=== PATIENT | female | born 1970 | race Caucasian/White ===

== ENCOUNTER → 2016-07-16 | Outpatient (CLI) | payer OTHER ==
[2016-07-16 11:21] LABS: CHLORIDE,CL 104 mmol/L (98-110); SODIUM,NA 141 mmol/L (136-146)
== END ==
LOC: MW.CHIM 10:39
PROVIDERS: ATTEND Internal Medicine
DX: I10 Essential (primary) hypertension (principal); E87.5 Hyperkalemia
CPT/HCPCS: 36415; 80048

== ENCOUNTER 2017-08-21 14:52 | Emergency (ER) | payer BC ==
[2017-08-21] MEDS ORDERED: Sodium Chloride 0.9% 1,000 ML IV SCH (15:30)
--- NOTE | 2017-08-21 15:47 | EDM.PDOC ---
ED HPI GENERAL MEDICAL PROBLEM - General Chief Complaint: Headache Stated Complaint: HEADACHES Time Seen by Provider: 08/21/17 14:57 - History of Present Illness INITIAL COMMENTS - FREE TEXT/NARRATIVE: HISTORY AND PHYSICAL: History of present illness: Patient is a 46-year-old female with a history of brain cancer with subsequent tumor resection and radiation who is been followed by Dr. Donnelly in presents with headache 2 weeks she's had no new neurological signs or symptoms she states she has had some nausea she is in the process of coordinating follow-up through [facility] with Dr. Donnelly facilitating her original tumor surgery and care for this problem was in [place]. She did have an MRI in June that showed slightly increased enhancement in the region of the resection this was discussed with her oncologist and neurologist or the process of coordinating care through [facility]. Review of systems: As per history of present illness and below otherwise all systems reviewed and negative. Past medical history: As per history of present illness and as reviewed below otherwise noncontributory. Surgical history: As per history of present illness and as reviewed below otherwise noncontributory. Social history: No reported history of drug or alcohol abuse. Family history: As per history of present illness and as reviewed below otherwise noncontributory. Physical exam: HEENT: Atraumatic, normocephalic, pupils reactive, negative for conjunctival pallor or scleral icterus, mucous membranes moist, throat clear, neck supple, nontender, trachea midline. Lungs: Clear to auscultation, breath sounds equal bilaterally, chest nontender. Heart: S1S2, regular, negative for clicks, rubs, or JVD. Abdomen: Soft, nondistended, nontender. Negative for masses or hepatosplenomegaly. Negative for costovertebral tenderness. Pelvis: Stable nontender. Genitourinary: Deferred. Rectal: Deferred. Extremities: Atraumatic, negative for cords or calf pain. Neurovascular unremarkable. Neuro: Awake, alert, oriented. Cranial nerves II through XII unremarkable. Cerebellum unremarkable. Motor and sensory unremarkable throughout. Exam nonfocal. Diagnostics: CBC CMP CT brain Therapeutics: Saline at 125 mL an hour Impression: #1 history of intracranial neoplasm with resection #2 cephalgia Definitive disposition and diagnosis as appropriate pending reevaluation and review of above. frontal Pain Score (Numeric/FACES): 8 - Related Data Allergies Allergy/AdvReac Type Severity Reaction Status Date / Time No Known Allergies Allergy Verified 08/21/17 14:59 Home Meds: Home Meds Levothyroxine 125 mcg PO DAILY 11/09/13 [History] amLODIPine [Norvasc] 5 mg PO DAILY 11/09/13 [History] Omeprazole Magnesium [Prilosec Otc] 20 mg PO DAILY 02/14/16 [History] Potassium Chloride 20 meq PO DAILY 02/14/16 [History] oxyCODONE HCl/Acetaminophen [Percocet 7.5-325 mg Tablet] 1 each PO Q4H PRN #30 tablet 02/17/16 [Rx] Past Medical History HEENT History: Reports: None Cardiovascular History: Reports: Arrhythmia, High Cholesterol, Hypertension Respiratory History: Reports: None Gastrointestinal History: Reports: GERD, Irritable Bowel Syndrome Genitourinary History: Reports: Other (See Below) Other Genitourinary History: has three funcitoning kidneys [employer] History: Reports: Fibroids, Other OB/BYN History: Musculoskeletal History: Reports: None Neurological History: Reports: Migraines Other Neuro History: Brain tumor with removal and [id number] finished chronic steroids. Psychiatric History: Reports: None Endocrine/Metabolic History: Reports: Hypothyroidism, Obesity/BMI 30+ Hematologic History: Reports: None Immunologic History: Reports: None Oncologic (Cancer) History: Reports: Brain Dermatologic History: Reports: None - Infectious Disease History Infectious Disease History: Reports: Chicken Pox - Past Surgical History Head Surgeries/Procedures: Reports: Other (See Below) HEENT Surgical History: Reports: Oral Surgery, Tonsillectomy Cardiovascular Surgical History: Reports: None Respiratory Surgical History: Reports: None GI Surgical History: Reports: None Female Surgical History: Reports: Section, Cervical Conization, Hysterectomy Endocrine Surgical History: Reports: None Neurological Surgical History: Reports: None Musculoskeletal Surgical History: Reports: None Oncologic Surgical History: Reports: None - History Comment History Comment: etoh "weekly" Social & Family History - Family History Family Medical History: Noncontributory - Tobacco Use Smoking Status *Q: Never Smoker Years of Tobacco use: 25 Used Tobacco, but Quit: Yes Month/Year Tobacco Last Used: january Second Hand Smoke Exposure: No - Caffeine Use Caffeine Use: Reports: Coffee Caffeine Use Comment: two coffees daily - Alcohol Use Days Per Week of Alcohol Use: 5 Number of Drinks Per Day: 2 Total Drinks Per Week: 10 - Recreational Drug Use Recreational Drug Use: Yes Drug Use in Last 12 Months: No Recreational Drug Type: Reports: Marijuana/Hashish Recreational Drug Use Frequency: Daily ED ROS GENERAL - Review of Systems Review Of Systems: ROS reveals no pertinent complaints other than HPI. ED EXAM, GENERAL - Physical Exam Exam: See Below (See dictation) Course - Vital Signs Last Recorded V/S: Last Vital Signs Temp 35.6 C 08/21/17 15:00 Pulse 113 H 08/21/17 15:00 Resp 18 08/21/17 15:00 BP 149/87 H 08/21/17 15:00 Pulse Ox 98 08/21/17 15:00 - Orders/Labs/Meds Orders: Active Orders 24 hr Category Date Time Status DRUG SCREEN, URINE [URCHEM] Stat Lab 08/21/17 16:16 Ordered UA W/MICROSCOPIC [URIN] Stat Lab 08/21/17 16:16 Ordered Sodium Chloride 0.9% [Normal Saline] 1,000 ml Med 08/21/17 15:30 Active IV STAT Medication Orders Sodium Chloride (Normal Saline) 1,000 mls @ 125 mls/hr IV STAT BARBARA Last Admin: 08/21/17 15:45 Dose: 125 mls/hr Labs: Laboratory Tests 08/21/17 08/21/17 Range/Units 15:28 15:28 WBC 8.95 (4.0-11.0) K/uL RBC 4.79 (4.30-5.90) M/uL Hgb 14.3 (12.0-16.0) g/dL Hct 43.4 (36.0-46.0) % MCV 90.6 (80.0-98.0) fL MCH 29.9 (27.0-32.0) pg MCHC 32.9 (31.0-37.0) g/dL RDW Std Deviation 44.1 (28.0-62.0) fl RDW Coeff of Amanda 13 (11.0-15.0) % Plt Count 470 H (150-400) K/uL MPV 9.40 (7.40-12.00) fL Neut % (Auto) 87.4 H (48.0-80.0) % Lymph % (Auto) 9.8 L (16.0-40.0) % [place] % (Auto) 2.8 (0.0-15.0) % Eos % (Auto) 0.0 (0.0-7.0) % Baso % (Auto) 0.0 (0.0-1.5) % Neut # (Auto) 7.8 H (1.4-5.7) K/uL Lymph # (Auto) 0.9 (0.6-2.4) K/uL [place] # (Auto) 0.3 (0.0-0.8) K/uL Eos # (Auto) 0.0 (0.0-0.7) K/uL Baso # (Auto) 0.0 (0.0-0.1) K/uL Nucleated RBC % 0.0 /100WBC Nucleated RBCs # 0 K/uL Sodium 141 (136-145) mmol/L Potassium 4.3 (3.5-5.1) mmol/L Chloride 103 (98-107) mmol/L Carbon Dioxide 28.0 (21.0-32.0) mmol/L BUN 11 (7.0-18.0) mg/dL Creatinine 0.8 (0.6-1.0) mg/dL Est Cr Clr Drug Dosing 113.33 mL/min Estimated GFR (MDRD) > 60.0 ml/min Glucose 130 H (74-106) mg/dL Calcium 9.3 (8.5-10.1) mg/dL Total Bilirubin 0.4 (0.2-1.0) mg/dL AST 16 (15-37) IU/L ALT 28 (14-63) IU/L Alkaline Phosphatase 75 (46-116) U/L Total Protein 8.0 (6.4-8.2) g/dL Albumin 3.9 (3.4-5.0) g/dL Globulin 4.1 H (2.0-3.5) g/dL Albumin/Globulin Ratio 1.0 L (1.3-2.8) Meds: Medications Generic Name Dose Route Start Last Admin Trade Name Freq PRN Reason Stop Dose Admin Sodium Chloride 1,000 mls @ 125 mls/hr 08/21/17 15:30 08/21/17 15:45 Normal Saline IV 125 mls/hr STAT BARBARA Administration Discontinued Medications Generic Name Dose Route Start Last Admin Trade Name Freq PRN Reason Stop Dose Admin Dexamethasone 10 mg 08/21/17 16:43 Dexamethasone IVPUSH 08/21/17 16:44 ONETIME ONE Departure - Departure Time of Disposition: 16:52 Disposition: DC/Tfer to Acute Hospital 02 Condition: Good Clinical Impression: Cephalgia, Intracranial space-occupying lesion - Discharge Information Referrals: Richie Cuba MD [Primary Care Provider] - Forms: ED Department Discharge - My Orders Last 24 Hours: My Active Orders 08/21/17 15:30 Sodium Chloride 0.9% [Normal Saline] 1,000 ml IV STAT 08/21/17 16:16 DRUG SCREEN, URINE [URCHEM] Stat UA W/MICROSCOPIC [URIN] Stat - Assessment/Plan Last 24 Hours: My Active Orders 08/21/17 15:30 Sodium Chloride 0.9% [Normal Saline] 1,000 ml IV STAT 08/21/17 16:16 DRUG SCREEN, URINE [URCHEM] Stat UA W/MICROSCOPIC [URIN] Stat
[2017-08-21 16:06] LABS: CHLORIDE,CL 103 mmol/L (98-107); SODIUM,NA 141 mmol/L (136-145)
--- NOTE | 2017-08-21 16:18 | CT ---
EXAMINATION: Non contrast CT head. Coronal and sagittal reformats. HISTORY: Pain FINDINGS: There is a 3.4 cm cystic space in the region of the right frontal lobe anteriorly. This has increased in size relative to the previous examination dated 07/01/2017. No definite solid component identified on the noncontrast examination. Moderate adjacent white matter hypodensities noted consistent with g liosis. There is mild left to right midline shift noted on the previous examination. No evidence of h emorrhagic conversion. No hypoattenuation changes in the major vascular territories to suggest acute infarct. No abnormal i ntracranial calcifications are detected. No evidence of substantial vascular calcifications. Small a mount of fluid within the left maxillary sinus. Opacification of mastoid air cells bilaterally. Pituitary fossa appears unremarkable. Calvarium is intact. No evidence of skull fracture. IMPRESSION: 1. Increasing cystic space within the region of previous surgery in the right frontal lobe. This is r esulting in mild to moderate right to left midline shift anteriorly. 2. Moderate adjacent gliosis. 3. No evidence of hemorrhagic conversion. 4. Moderate opacification of ethmoid air cells bilaterally. Likely an effusion.
[2017-08-21] MEDS ORDERED: Dexamethasone 10 MG/ML SDV IVPUSH ONE (16:43)
[2017-08-21] MEDS ORDERED: Ondansetron 4 MG/2 ML SDV IVPUSH ONE (16:56)
[2017-08-21] MEDS ORDERED: Ondansetron 4 MG/2 ML SDV ONE (16:57)
[2017-08-21] MEDS ORDERED: Mannitol 12.5 GM/50 ML SDV IV ONE (17:04)
[2017-08-21 17:41] VITALS: BP 163/88
== END 2017-08-21 18:36 ==
LOC: MW.ED 14:52
DX: R90.0 Intracranial space-occupying lesion found on diagnostic imaging of central nervous system (principal); M54.2 Cervicalgia; E78.00 Pure hypercholesterolemia, unspecified; I10 Essential (primary) hypertension; K21.9 Gastro-esophageal reflux disease without esophagitis; E03.9 Hypothyroidism, unspecified; E66.9 Obesity, unspecified; Z79.899 Other long term (current) drug therapy; Z87.891 Personal history of nicotine dependence
CPT/HCPCS: 36415; 70450; 80053; 80305; 81001; 85025; 96361; 96374; 96375; 99285; J1100; J2150; J2405; J7040; 99284

== ENCOUNTER 2018-12-18 17:08 | Inpatient (IN) | payer BC ==
[2018-12-18] MEDS ORDERED: Sodium Chloride 0.9% 1,000 ML IV ONE (17:41)
[2018-12-18] MEDS ORDERED: Albuterol/Ipratropium 3.0-0.5 MG/3 ML Neb Soln NEB ONE (17:42)
[2018-12-18 18:28] LABS: CHLORIDE,CL 103 mmol/L (98-107); SODIUM,NA 141 mmol/L (136-145)
--- NOTE | 2018-12-18 18:28 | EDM.PDOC ---
ED HPI GENERAL MEDICAL PROBLEM - General Chief Complaint: Respiratory Problem Stated Complaint: SOB Time Seen by Provider: 12/18/18 17:18 Source of Information: Reports: Patient History Limitations: Reports: No Limitations - History of Present Illness INITIAL COMMENTS - FREE TEXT/NARRATIVE: HISTORY AND PHYSICAL: History of present illness: Patient is a 48-year-old female who presents to the ED today with concern of worsening shortness of breath over the past 5 days. Patient currently has brain cancer in which she is receiving chemotherapy every 6 weeks and has just finished radiation therapy at [facility]. Patient states she is to go to [place] again next week. Patient states in the meantime she's began feeling short of breath and went to the oncology center today to receive some x-ray imaging. At that time, they told her her oxygen was too low center to the ED. Patient states she does not currently smoke but was once a heavy smoker; smoking about a pack a day for 20 years. Patient denies fever, chills, chest pain. Denies headache, neck stiff ness, change in vision, syncope, or near syncope. Denies nausea, vomiting, abdominal pain, diarrhea, constipation, or dysuria. Has not noted any blood in urine or stool. Patient has been eating and drinking appropriately. Review of systems: As per history of present illness and below otherwise all systems reviewed and negative. Past medical history: As per history of present illness and as reviewed below otherwise noncontributory. Surgical history: As per history of present illness and as reviewed below otherwise noncontributory. Social history: See social history for further information Family history: As per history of present illness and as reviewed below otherwise noncontributory. Physical exam: General: Patient is alert, oriented, and in no acute distress. Patient sitting comfortably on exam table. HEENT: Atraumatic, scarring consistent with surgical history, pupils equal and reactive bilaterally, negative for conjunctival pallor or scleral icterus, mucous membranes dry, TMs normal bilaterally, throat clear, neck supple, nontender, trachea midline. No drooling or trismus noted. No meningeal signs. No hot potato voice noted. Lungs: Exam limited due to dry cough. Otherwise, Clear to auscultation, breath sounds equal bilaterally, chest nontender. Heart: S1S2, regular rate and rhythm without overt murmur Abdomen: Obese, Soft, nondistended, nontender. Negative for masses or hepatosplenomegaly. Negative for costovertebral tenderness. Pelvis: Stable nontender. Genitourinary: Deferred. Rectal: Deferred. Skin: Intact, warm, dry. No lesions or rashes noted. Extremities: Atraumatic, negative for cords or calf pain. Neurovascular unremarkable. Neuro: Awake, alert, oriented. Cranial nerves II through XII unremarkable. Cerebellum unremarkable. Motor and sensory unremarkable throughout. Exam nonfocal. Notes: Patient 88% on RA. 95% on 3L NC. Dr. Wiggins consulted on patient and will admit to observation. Voices understanding and is agreeable to plan of care. Denies any further questions or concerns at this time. Diagnostics: CBC, CMP, UA, EKG, troponin, Ang CT, Blood cultures x 2, lactate Therapeutics: Duoneb, Saline, Meropenem Impression: Multifocal pneumonia Hypoxia Immunosuppression Plan: 1. Admit to observation to Dr. Wiggins. Definitive disposition and diagnosis as appropriate pending reevaluation and review of above. Chest Pain Score (Numeric/FACES): 2 - Related Data Allergies Allergy/AdvReac Type Severity Reaction Status Date / Time No Known Allergies Allergy Verified 12/18/18 17:22 Home Meds: Home Meds Levothyroxine 125 mcg PO DAILY 11/09/13 [History] amLODIPine [Norvasc] 5 mg PO DAILY 11/09/13 [History] Omeprazole Magnesium [Prilosec Otc] 20 mg PO DAILY 02/14/16 [History] Nortriptyline 20 mg PO BEDTIME 08/21/17 [History] LORazepam 0.5 mg PO BID 12/18/18 [History] dexAMETHasone [Dexamethasone] 2 mg PO Q12H 12/18/18 [History] oxyCODONE 5 mg PO ASDIRECTED 12/18/18 [History] Past Medical History HEENT History: Reports: None Cardiovascular History: Reports: Arrhythmia, High Cholesterol, Hypertension Respiratory History: Reports: None Gastrointestinal History: Reports: GERD, Irritable Bowel Syndrome Genitourinary History: Reports: Other (See Below) Other Genitourinary History: has three funcitoning kidneys [employer] History: Reports: Fibroids, Other [employer] History: Musculoskeletal History: Reports: None Neurological History: Reports: Migraines Other Neuro History: Brain tumor with removal and [id number] finished chronic steroids. Psychiatric History: Reports: None Endocrine/Metabolic History: Reports: Hypothyroidism, Obesity/BMI 30+ Hematologic History: Reports: None Immunologic History: Reports: None Oncologic (Cancer) History: Reports: Brain Dermatologic History: Reports: None - Infectious Disease History Infectious Disease History: Reports: Chicken Pox - Past Surgical History Head Surgeries/Procedures: Reports: Other (See Below) HEENT Surgical History: Reports: Oral Surgery, Tonsillectomy Cardiovascular Surgical History: Reports: None Respiratory Surgical History: Reports: None GI Surgical History: Reports: None Female Surgical History: Reports: Section, Cervical Conization, Hysterectomy Endocrine Surgical History: Reports: None Neurological Surgical History: Reports: None Musculoskeletal Surgical History: Reports: None Oncologic Surgical History: Reports: None - History Comment History Comment: etoh "weekly" Social & Family History - Family History Family Medical History: Noncontributory - Tobacco Use Smoking Status *Q: Former Smoker Years of Tobacco use: 25 Used Tobacco, but Quit: Yes Month/Year Tobacco Last Used: 13year - Caffeine Use Caffeine Use: Reports: None Caffeine Use Comment: two coffees daily - Recreational Drug Use Recreational Drug Use: No ED ROS GENERAL - Review of Systems Review Of Systems: ROS reveals no pertinent complaints other than HPI. ED EXAM, GENERAL - Physical Exam Exam: See Below (see dictation) Course - Vital Signs Last Recorded V/S: Last Vital Signs Temp 35.9 C 12/18/18 17:27 Pulse 108 H 12/18/18 18:00 Resp 18 12/18/18 18:00 BP 115/90 12/18/18 18:00 Pulse Ox 96 12/18/18 18:00 - Orders/Labs/Meds Orders: Active Orders 24 hr Category Date Time Status Admission Status [Patient Status] [ADT] Stat ADT 12/18/18 19:38 Ordered EKG Documentation Completion [RC] STAT Care 12/18/18 17:41 Active RT Aerosol Therapy [RC] ASDIRECTED Care 12/18/18 17:42 Active CULTURE BLOOD [BC] Stat Lab 12/18/18 17:57 Received CULTURE BLOOD [BC] Stat Lab 12/18/18 18:05 Received Meropenem [Merrem] 1 gm Med 12/18/18 19:37 Ordered Sodium Chloride 0.9% [Normal Saline] 100 ml IV ONETIME Blood Culture x2 Reflex Set [OM.PC] Stat Oth 12/18/18 17:42 Ordered Medication Orders Meropenem 1 gm/ Sodium (Chloride) 100 mls @ 200 mls/hr IV ONETIME ONE Stop: 12/18/18 20:06 Labs: Laboratory Tests 12/18/18 12/18/18 12/18/18 Range/Units 17:57 17:57 17:57 WBC 11.38 H (4.0-11.0) K/uL RBC 4.83 (4.30-5.90) M/uL Hgb 14.5 (12.0-16.0) g/dL Hct 46.0 (36.0-46.0) % MCV 95.2 (80.0-98.0) fL MCH 30.0 (27.0-32.0) pg MCHC 31.5 (31.0-37.0) g/dL RDW Std Deviation 47.7 (28.0-62.0) fl RDW Coeff of Amanda 14 (11.0-15.0) % Plt Count 324 (150-400) K/uL MPV 9.50 (7.40-12.00) fL Neut % (Auto) 89.8 H (48.0-80.0) % Lymph % (Auto) 5.6 L (16.0-40.0) % [place] % (Auto) 4.2 (0.0-15.0) % Eos % (Auto) 0.2 (0.0-7.0) % Baso % (Auto) 0.2 (0.0-1.5) % Neut # (Auto) 10.2 H (1.4-5.7) K/uL Lymph # (Auto) 0.6 (0.6-2.4) K/uL [place] # (Auto) 0.5 (0.0-0.8) K/uL Eos # (Auto) 0.0 (0.0-0.7) K/uL Baso # (Auto) 0.0 (0.0-0.1) K/uL Nucleated RBC % 0.0 /100WBC Nucleated RBCs # 0 K/uL Lactate 1.6 (0.20-2.00) mmol/L Sodium 141 (136-145) mmol/L Potassium 4.6 (3.5-5.1) mmol/L Chloride 103 (98-107) mmol/L Carbon Dioxide 29.1 (21.0-32.0) mmol/L BUN 14 (7.0-18.0) mg/dL Creatinine 0.8 (0.6-1.0) mg/dL Est Cr Clr Drug Dosing 98.21 mL/min Estimated GFR (MDRD) > 60.0 ml/min Glucose 128 H (74-106) mg/dL Calcium 9.4 (8.5-10.1) mg/dL Total Bilirubin 0.3 (0.2-1.0) mg/dL AST 23 (15-37) IU/L ALT 40 (14-63) IU/L Alkaline Phosphatase 86 (46-116) U/L Troponin I < 0.050 (0.000-0.056) ng/mL Total Protein 6.9 (6.4-8.2) g/dL Albumin 3.4 (3.4-5.0) g/dL Globulin 3.5 (2.6-4.0) g/dL Albumin/Globulin Ratio 1.0 (0.9-1.6) Urine Color Urine Appearance Urine pH (5.0-8.0) Ur Specific [place] (1.001-1.035) Urine Protein (NEGATIVE) mg/dL Urine Glucose (UA) (NEGATIVE) mg/dL Urine Ketones (NEGATIVE) mg/dL Urine Occult Blood (NEGATIVE) Urine Nitrite (NEGATIVE) Urine Bilirubin (NEGATIVE) Urine Urobilinogen (<2.0) EU/dL Ur Leukocyte Esterase (NEGATIVE) 12/18/18 Range/Units 19:25 WBC (4.0-11.0) K/uL RBC (4.30-5.90) M/uL Hgb (12.0-16.0) g/dL Hct (36.0-46.0) % MCV (80.0-98.0) fL MCH (27.0-32.0) pg MCHC (31.0-37.0) g/dL RDW Std Deviation (28.0-62.0) fl RDW Coeff of Amanda (11.0-15.0) % Plt Count (150-400) K/uL MPV (7.40-12.00) fL Neut % (Auto) (48.0-80.0) % Lymph % (Auto) (16.0-40.0) % [place] % (Auto) (0.0-15.0) % Eos % (Auto) (0.0-7.0) % Baso % (Auto) (0.0-1.5) % Neut # (Auto) (1.4-5.7) K/uL Lymph # (Auto) (0.6-2.4) K/uL [place] # (Auto) (0.0-0.8) K/uL Eos # (Auto) (0.0-0.7) K/uL Baso # (Auto) (0.0-0.1) K/uL Nucleated RBC % /100WBC Nucleated RBCs # K/uL Lactate (0.20-2.00) mmol/L Sodium (136-145) mmol/L Potassium (3.5-5.1) mmol/L Chloride (98-107) mmol/L Carbon Dioxide (21.0-32.0) mmol/L BUN (7.0-18.0) mg/dL Creatinine (0.6-1.0) mg/dL Est Cr Clr Drug Dosing mL/min Estimated GFR (MDRD) ml/min Glucose (74-106) mg/dL Calcium (8.5-10.1) mg/dL Total Bilirubin (0.2-1.0) mg/dL AST (15-37) IU/L ALT (14-63) IU/L Alkaline Phosphatase (46-116) U/L Troponin I (0.000-0.056) ng/mL Total Protein (6.4-8.2) g/dL Albumin (3.4-5.0) g/dL Globulin (2.6-4.0) g/dL Albumin/Globulin Ratio (0.9-1.6) Urine Color YELLOW Urine Appearance CLEAR Urine pH 6.0 (5.0-8.0) Ur Specific [place] <= 1.005 (1.001-1.035) Urine Protein NEGATIVE (NEGATIVE) mg/dL Urine Glucose (UA) NEGATIVE (NEGATIVE) mg/dL Urine Ketones NEGATIVE (NEGATIVE) mg/dL Urine Occult Blood NEGATIVE (NEGATIVE) Urine Nitrite NEGATIVE (NEGATIVE) Urine Bilirubin NEGATIVE (NEGATIVE) Urine Urobilinogen 0.2 (<2.0) EU/dL Ur Leukocyte Esterase NEGATIVE (NEGATIVE) Meds: Medications Generic Name Dose Route Start Last Admin Trade Name Sandra PRN Reason Stop Dose Admin Meropenem 1 gm/ Sodium 100 mls @ 200 mls/hr 12/18/18 19:37 Chloride IV 12/18/18 20:06 ONETIME ONE Discontinued Medications Generic Name Dose Route Start Last Admin Trade Name Sandra PRN Reason Stop Dose Admin Albuterol/Ipratropium 3 ml 12/18/18 17:42 12/18/18 18:03 Duoneb 3.0-0.5 Mg/3 Ml NEB 12/18/18 17:43 3 ml ONETIME ONE Administration Sodium Chloride 1,000 mls @ 999 mls/hr 12/18/18 17:41 12/18/18 18:14 Normal Saline IV 12/18/18 18:41 999 mls/hr BOLUS ONE Administration Iopamidol 50 ml 12/18/18 18:35 12/18/18 18:35 Isovue Multipack-370 (76%) IVPUSH 12/18/18 18:36 50 ml ONETIME STA Administration Departure - Departure Time of Disposition: 19:43 Disposition: Refer to Observation Clinical Impression: Multifocal pneumonia, Immunosuppression, Hypoxia - Discharge Information - My Orders Last 24 Hours: My Active Orders 12/18/18 17:41 EKG Documentation Completion [RC] STAT 12/18/18 17:42 RT Aerosol Therapy [RC] ASDIRECTED Blood Culture x2 Reflex Set [OM.PC] Stat 12/18/18 17:57 CULTURE BLOOD [BC] Stat 12/18/18 18:05 CULTURE BLOOD [BC] Stat 12/18/18 19:37 Meropenem [Merrem] 1 gm Sodium Chloride 0.9% [Normal Saline] 100 ml IV ONETIME 12/18/18 19:38 Admission Status [Patient Status] [ADT] Stat - Assessment/Plan Last 24 Hours: My Active Orders 12/18/18 17:41 EKG Documentation Completion [RC] STAT 12/18/18 17:42 RT Aerosol Therapy [RC] ASDIRECTED Blood Culture x2 Reflex Set [OM.PC] Stat 12/18/18 17:57 CULTURE BLOOD [BC] Stat 12/18/18 18:05 CULTURE BLOOD [BC] Stat 12/18/18 19:37 Meropenem [Merrem] 1 gm Sodium Chloride 0.9% [Normal Saline] 100 ml IV ONETIME 12/18/18 19:38 Admission Status [Patient Status] [ADT] Stat
[2018-12-18] MEDS ORDERED: Iopamidol 755 MG/ML 500 ML Multipack Bottle IVPUSH STA (18:35)
--- NOTE | 2018-12-18 19:31 | CT ---
INDICATION: Shortness of breath. COMPARISON: None available TECHNIQUE: CT examination of the chest was performed with the uneventful intravenous administration of 50 cc of Isovue 370 while 1 mm thick axial sections were obtained through the pulmonary arteries. Please note that all CT scans at this facility use dose modulation, iterative reconstruction, and/or weight-based dosing when appropriate to reduce radiation dose to as low as reasonably achievable. FINDINGS: : There is no sign of pulmonary embolism, with normal enhancement and branching of the pulmonary arteries. There is moderate patchy alveolar infiltrate throughout the right lung, involving both the right upper and lower lobes, consistent with multifocal pneumonia. There is mild patchy alveolar infiltrate scattered throughout the entire left lung, suggesting early left lung pneumonia. There is no sign of any pleural effusion. There is no sign of mediastinal or hilar mass or adenopathy. The heart and great vessels are normal in appearance. There is no sign of supraclavicular or axillary mass or adenopathy. The visualized superior liver, spleen, pancreas, kidneys, and adrenals are normal in appearance. The osseous structures are normal in appearance for the patient`s age. IMPRESSION: No sign of pulmonary embolism. Moderate patchy infiltrate and scattered throughout the right lung consistent with multifocal pneumonia. Mild patchy infiltrates scattered throughout the left lung, consistent with additional pneumonia. Please note that all CT scans at this facility use dose modulation, iterative reconstruction, and/or weight-based dosing when appropriate to reduce radiation dose to as low as reasonably achievable. Dictated by Victorino Saenz MD @ Dec 18 2018 7:21PM Signed by Dr. Victorino Saenz @ Dec 18 2018 7:29PM
[2018-12-18] MEDS ORDERED: MEROPENEM IV ONE (20:00)
[2018-12-18] MEDS ORDERED: SODIUM CHLORIDE IV ONE (20:00)
[2018-12-18] MEDS: Meropenem 1 GM in Sodium Chloride 0.9% 100 ML IV ONE ×2 (20:19→20:20)
[2018-12-18] MEDS ORDERED: Acetaminophen 325 MG Tab PO PRN (21:02)
[2018-12-18] MEDS ORDERED: Temazepam 15 MG Cap PO PRN (21:03)
[2018-12-18] MEDS: Sodium Chloride 0.9% 1,000 ML IV SCH (21:18)
[2018-12-18] MEDS ORDERED: Meropenem 1 GM in Sodium Chloride 0.9% 100 ML IV SCH (22:15)
[2018-12-19] MEDS ORDERED: Meropenem 1 GM in Sodium Chloride 0.9% 100 ML IV SCH ×2 (04:00→12:00)
[2018-12-19] MEDS ORDERED: Meropenem 1 GM SDV ONE (05:23)
[2018-12-19] MEDS ORDERED: Sodium Chloride 0.9% 50 ML ONE (05:25)
[2018-12-19] MEDS: oxyCODONE 5 MG Tab PO PRN ×3 (05:30→21:42)
[2018-12-19] MEDS: Albuterol/Ipratropium 3.0-0.5 MG/3 ML Neb Soln NEB PRN ×2 (06:07→14:31)
[2018-12-19 06:47] LABS: CHLORIDE,CL 108 mmol/L (98-107); SODIUM,NA 144 mmol/L (136-145)
[2018-12-19] MEDS ORDERED: Docusate Sodium 100 MG Cap PO PRN (06:51)
--- NOTE | 2018-12-19 06:54 | PCM.HP.2 ---
H&P History of Present Illness - General Date of Service: 12/19/18 Admit Problem/Dx: Admission Diagnosis/Problem Admission Diagnosis/Problem Pneumonia, multifocal. Currently under chemotherapy and radiation for glioblastoma multiform Source of Information: Patient History Limitations: Reports: No Limitations - History of Present Illness Initial Comments - Free Text/Narative: The patient is a 48-year-old lady who had presented to the emergency department complaining predominantly of worsening shortness of breath. Patient has described symptoms is been unable to take a deep breath and to fully inhale. The patient has a history of prior astrocytoma of the brain with surgery and now glioblastoma also currently post surgical and has undergone radiation therapy is scheduled to undergo chemotherapy. The patient has denied any fever or chills. She's had no nausea or vomiting. The patient has denied any cough with sputum production or hemoptysis. In the emergency department a CT angiogram was obtained to rule out pulmonary emboli as she was noted to have moderate patchy alveolar infiltrates throughout the right lung involving the right upper and lower lobes consistent with multifocal pneumonia. Onset of Symptoms: Reports: Gradual Duration of Symptoms: Reports: Day(s): Location: Reports: Chest Quality: Reports: Other (Pressure) Severity: Moderate Improves with: Reports: Rest Worsens with: Reports: Movement Context: Reports: Other (Chemotherapy, radiation) Associated Symptoms: Reports: No Other Symptoms Chest Pain Score (Numeric/FACES): 2 - Related Data Allergies/Adverse Reactions: Allergies Allergy/AdvReac Type Severity Reaction Status Date / Time No Known Allergies Allergy Verified 12/18/18 21:58 Home Medications: Home Meds Levothyroxine 125 mcg PO DAILY 11/09/13 [History] amLODIPine [Norvasc] 5 mg PO DAILY 11/09/13 [History] Omeprazole Magnesium [Prilosec Otc] 20 mg PO DAILY 02/14/16 [History] Nortriptyline 20 mg PO BEDTIME 08/21/17 [History] LORazepam 0.5 mg PO Q8H PRN 12/18/18 [History] dexAMETHasone [Dexamethasone] 2 mg PO Q24H 12/18/18 [History] oxyCODONE 5 mg PO ASDIRECTED 12/18/18 [History] Past Medical History HEENT History: Reports: None Cardiovascular History: Reports: Arrhythmia, High Cholesterol, Hypertension Respiratory History: Reports: None Gastrointestinal History: Reports: GERD, Irritable Bowel Syndrome Genitourinary History: Reports: Other (See Below) Other Genitourinary History: has three funcitoning kidneys [employer]MING [employer] History: Reports: Fibroids, Other OB/BYN History: Musculoskeletal History: Reports: None Neurological History: Reports: Migraines Other Neuro History: Brain tumor with removal and [id number] finished chronic steroids. Psychiatric History: Reports: None Endocrine/Metabolic History: Reports: Hypothyroidism, Obesity/BMI 30+ Hematologic History: Reports: Anesthesia Reaction Immunologic History: Reports: None Oncologic (Cancer) History: Reports: Brain Dermatologic History: Reports: None - Infectious Disease History Infectious Disease History: Reports: Chicken Pox - Past Surgical History Head Surgeries/Procedures: Reports: Other (See Below) HEENT Surgical History: Reports: Oral Surgery, Tonsillectomy Cardiovascular Surgical History: Reports: None Respiratory Surgical History: Reports: None GI Surgical History: Reports: None Female Surgical History: Reports: Section, Cervical Conization, Hysterectomy Endocrine Surgical History: Reports: None Neurological Surgical History: Reports: None Musculoskeletal Surgical History: Reports: None Oncologic Surgical History: Reports: None - History Comment History Comment: etoh "weekly" Social & Family History - Family History Family Medical History: Noncontributory - Tobacco Use Smoking Status *Q: Former Smoker Years of Tobacco use: 20 Used Tobacco, but Quit: Yes Month/Year Tobacco Last Used: 2005 Second Hand Smoke Exposure: No - Caffeine Use Caffeine Use: Reports: Coffee Other Caffeine Use: 2 cups daily Caffeine Use Comment: two coffees daily - Alcohol Use Days Per Week of Alcohol Use: 7 Number of Drinks Per Day: 1 Total Drinks Per Week: 7 Date of Last Drink: 12/17/18 - Recreational Drug Use Recreational Drug Use: Yes Drug Use in Last 12 Months: Yes Other Recreational Drug Type: uses CBD gummies occasionally for headaches - Living Situation & Occupation Living situation: Reports: , with Family Occupation: Unemployed H&P Review of Systems - Review of Systems: Review Of Systems: See Below General: Reports: No Symptoms HEENT: Reports: No Symptoms Pulmonary: Reports: Shortness of Breath. Denies: Cough, Sputum, Hemoptysis Cardiovascular: Reports: No Symptoms Gastrointestinal: Reports: No Symptoms Genitourinary: Reports: No Symptoms Musculoskeletal: Reports: No Symptoms Skin: Reports: No Symptoms Psychiatric: Reports: No Symptoms Neurological: Reports: No Symptoms Hematologic/Lymphatic: Reports: No Symptoms Immunologic: Reports: No Symptoms Exam - Exam Exam: See Below - Vital Signs Vital Signs: Last Vital Signs Temp 36.4 C 12/19/18 04:00 Pulse 105 H 12/19/18 04:00 Resp 18 12/19/18 04:00 BP 126/78 12/19/18 04:00 Pulse Ox 91 L 12/19/18 04:00 Weight: 131.088 kg - Exam Quality Assessment: No: Supplemental Oxygen General: Alert, Oriented, Cooperative HEENT: Conjunctiva Clear, EACs Clear, EOMI, Hearing Intact, Pupils Equal, Other (Surgical sites right parietal frontal area), PERRLA. No: Mucosa Moist & [place] ( Dry) Neck: Supple, Trachea Midline Lungs: Clear to Auscultation, Normal Respiratory Effort Cardiovascular: Regular Rate, Regular Rhythm GI/Abdominal Exam: Normal Bowel Sounds, Soft, No Distention. No: Guarding, Rigid, Rebound Back Exam: Normal Inspection, Full Range of Motion Extremities: Normal Inspection, No Pedal Edema Skin: Warm, Dry, Intact Neurological: Cranial Nerves Intact Neuro Extensive - Mental Status: Alert, Oriented x3 Psychiatric: Alert, Normal Affect, Normal Mood - Patient Data Lab Results Last 24 hrs: Laboratory Results - last 24 hr 12/18/18 12/18/18 12/18/18 Range/Units 17:57 17:57 17:57 WBC 11.38 H (4.0-11.0) K/uL RBC 4.83 (4.30-5.90) M/uL Hgb 14.5 (12.0-16.0) g/dL Hct 46.0 (36.0-46.0) % MCV 95.2 (80.0-98.0) fL MCH 30.0 (27.0-32.0) pg MCHC 31.5 (31.0-37.0) g/dL RDW Std Deviation 47.7 (28.0-62.0) fl RDW Coeff of Amanda 14 (11.0-15.0) % Plt Count 324 (150-400) K/uL MPV 9.50 (7.40-12.00) fL Neut % (Auto) 89.8 H (48.0-80.0) % Lymph % (Auto) 5.6 L (16.0-40.0) % [place] % (Auto) 4.2 (0.0-15.0) % Eos % (Auto) 0.2 (0.0-7.0) % Baso % (Auto) 0.2 (0.0-1.5) % Neut # (Auto) 10.2 H (1.4-5.7) K/uL Lymph # (Auto) 0.6 (0.6-2.4) K/uL [place] # (Auto) 0.5 (0.0-0.8) K/uL Eos # (Auto) 0.0 (0.0-0.7) K/uL Baso # (Auto) 0.0 (0.0-0.1) K/uL Nucleated RBC % 0.0 /100WBC Nucleated RBCs # 0 K/uL Lactate 1.6 (0.20-2.00) mmol/L Sodium 141 (136-145) mmol/L Potassium 4.6 (3.5-5.1) mmol/L Chloride 103 (98-107) mmol/L Carbon Dioxide 29.1 (21.0-32.0) mmol/L BUN 14 (7.0-18.0) mg/dL Creatinine 0.8 (0.6-1.0) mg/dL Est Cr Clr Drug Dosing 98.21 mL/min Estimated GFR (MDRD) > 60.0 ml/min Glucose 128 H (74-106) mg/dL Calcium 9.4 (8.5-10.1) mg/dL Total Bilirubin 0.3 (0.2-1.0) mg/dL AST 23 (15-37) IU/L ALT 40 (14-63) IU/L Alkaline Phosphatase 86 (46-116) U/L Troponin I < 0.050 (0.000-0.056) ng/mL Total Protein 6.9 (6.4-8.2) g/dL Albumin 3.4 (3.4-5.0) g/dL Globulin 3.5 (2.6-4.0) g/dL Albumin/Globulin Ratio 1.0 (0.9-1.6) Urine Color Urine Appearance Urine pH (5.0-8.0) Ur Specific [place] (1.001-1.035) Urine Protein (NEGATIVE) mg/dL Urine Glucose (UA) (NEGATIVE) mg/dL Urine Ketones (NEGATIVE) mg/dL Urine Occult Blood (NEGATIVE) Urine Nitrite (NEGATIVE) Urine Bilirubin (NEGATIVE) Urine Urobilinogen (<2.0) EU/dL Ur Leukocyte Esterase (NEGATIVE) 12/18/18 12/19/18 12/19/18 Range/Units 19:25 06:10 06:10 WBC 8.51 (4.0-11.0) K/uL RBC 4.37 (4.30-5.90) M/uL Hgb 13.2 (12.0-16.0) g/dL Hct 42.2 (36.0-46.0) % MCV 96.6 (80.0-98.0) fL MCH 30.2 (27.0-32.0) pg MCHC 31.3 (31.0-37.0) g/dL RDW Std Deviation 48.9 (28.0-62.0) fl RDW Coeff of Amanda 14 (11.0-15.0) % Plt Count 315 (150-400) K/uL MPV 9.50 (7.40-12.00) fL Neut % (Auto) 83.8 H (48.0-80.0) % Lymph % (Auto) 11.6 L (16.0-40.0) % [place] % (Auto) 4.1 (0.0-15.0) % Eos % (Auto) 0.4 (0.0-7.0) % Baso % (Auto) 0.1 (0.0-1.5) % Neut # (Auto) 7.1 H (1.4-5.7) K/uL Lymph # (Auto) 1.0 (0.6-2.4) K/uL [place] # (Auto) 0.4 (0.0-0.8) K/uL Eos # (Auto) 0.0 (0.0-0.7) K/uL Baso # (Auto) 0.0 (0.0-0.1) K/uL Nucleated RBC % 0.0 /100WBC Nucleated RBCs # 0 K/uL Lactate (0.20-2.00) mmol/L Sodium 144 (136-145) mmol/L Potassium 4.4 (3.5-5.1) mmol/L Chloride 108 H (98-107) mmol/L Carbon Dioxide 28.6 (21.0-32.0) mmol/L BUN 14 (7.0-18.0) mg/dL Creatinine 0.9 (0.6-1.0) mg/dL Est Cr Clr Drug Dosing 87.30 mL/min Estimated GFR (MDRD) > 60.0 ml/min Glucose 120 H (74-106) mg/dL Calcium 8.7 (8.5-10.1) mg/dL Total Bilirubin (0.2-1.0) mg/dL AST (15-37) IU/L ALT (14-63) IU/L Alkaline Phosphatase (46-116) U/L Troponin I (0.000-0.056) ng/mL Total Protein (6.4-8.2) g/dL Albumin (3.4-5.0) g/dL Globulin (2.6-4.0) g/dL Albumin/Globulin Ratio (0.9-1.6) Urine Color YELLOW Urine Appearance CLEAR Urine pH 6.0 (5.0-8.0) Ur Specific [place] <= 1.005 (1.001-1.035) Urine Protein NEGATIVE (NEGATIVE) mg/dL Urine Glucose (UA) NEGATIVE (NEGATIVE) mg/dL Urine Ketones NEGATIVE (NEGATIVE) mg/dL Urine Occult Blood NEGATIVE (NEGATIVE) Urine Nitrite NEGATIVE (NEGATIVE) Urine Bilirubin NEGATIVE (NEGATIVE) Urine Urobilinogen 0.2 (<2.0) EU/dL Ur Leukocyte Esterase NEGATIVE (NEGATIVE) Result Diagrams: 12/19/18 06:10 12/19/18 06:10 - Problem List (1) Multifocal pneumonia SNOMED Code(s): 347842264 ICD Code: J18.9 - PNEUMONIA, UNSPECIFIED ORGANISM Status: Acute Priority : High Current Visit: Yes (2) Hypoxia SNOMED Code(s): 459570142 ICD Code: R09.02 - HYPOXEMIA Status: Acute Priority: High Current Visit : Yes (3) Glioblastoma multiforme of brain SNOMED Code(s): 270056005 ICD Code: C71.9 - MALIGNANT NEOPLASM OF BRAIN, UNSPECIFIED Status: Chronic Priority: High Current Visit: Yes (4) History of craniotomy SNOMED Code(s): 809475364, 892171029 ICD Code: Z98.890 - OTHER SPECIFIED POSTPROCEDURAL STATES Status: Chronic Priority: Medium Current Visit: No (5) Cephalgia SNOMED Code(s): 40920805 ICD Code: R51 - HEADACHE Status: Chronic Priority: Medium Current Visit : No Qualifiers: Headache type: other headache syndrome Qualified Code(s): G44.89 - Other headache syndrome Problem List Initiated/Reviewed/Updated: Yes Orders Last 24hrs: Active Orders 24 hr Category Date Time Status Admission Status [Patient Status] [ADT] Stat ADT 12/18/18 19:38 Active EKG Documentation Completion [RC] STAT Care 12/18/18 17:41 Active Oxygen Therapy [RC] PRN Care 12/19/18 06:51 Ordered RT Aerosol Therapy [RC] ASDIRECTED Care 12/18/18 17:42 Active RT Aerosol Therapy [RC] ASDIRECTED Care 12/19/18 05:39 Active Telemetry Monitoring [Cardiac Monitoring] [RC] Q8H Care 12/18/18 21:02 Active Up ad Sissy [RC] ASDIRECTED Care 12/19/18 06:51 Ordered VTE/DVT Education [RC] PER UNIT ROUTINE Care 12/19/18 06:51 Ordered Vital Signs [RC] Q4H Care 12/19/18 06:51 Ordered Regular Diet [DIET] Diet 12/19/18 Breakfast Active CBC WITH AUTO DIFF [HEME] AM Lab 12/20/18 05:11 Ordered COMPREHENSIVE METABOLIC PN,CMP [CHEM] AM Lab 12/20/18 05:11 Ordered CULTURE BLOOD [BC] Stat Lab 12/18/18 17:57 Received CULTURE BLOOD [BC] Stat Lab 12/18/18 18:05 Received Acetaminophen [Tylenol] Med 12/18/18 21:02 Active 650 mg PO Q6H PRN Albuterol/Ipratropium [DuoNeb 3.0-0.5 MG/3 ML] Med 12/19/18 05:39 Active 3 ml NEB Q4HRRT PRN Docusate Sodium [Colace] Med 12/19/18 06:51 Ordered 100 mg PO BID PRN Enoxaparin [Lovenox] Med 12/19/18 07:00 Ordered 30 mg SUBCUT Q24H LORazepam Med 12/19/18 06:50 Ordered 0.5 mg PO Q8H PRN Levothyroxine Med 12/19/18 09:00 Ordered 125 mcg PO DAILY Meropenem [Merrem] 1 gm Med 12/19/18 04:00 Active Sodium Chloride 0.9% [Normal Saline] 100 ml IV Q8H Nortriptyline Med 12/19/18 21:00 Ordered 20 mg PO BEDTIME Omeprazole Magnesium [Prilosec Otc] Med 12/19/18 09:00 Ordered 20 mg PO DAILY Sodium Chloride 0.9% [Normal Saline] 1,000 ml Med 12/18/18 21:15 Active IV ASDIRECTED Temazepam [Restoril] Med 12/18/18 21:03 Active 15 mg PO BEDTIME PRN amLODIPine [Norvasc] Med 12/19/18 09:00 Ordered 5 mg PO DAILY dexAMETHasone Med 12/19/18 07:00 Ordered 2 mg PO Q24H oxyCODONE Med 12/18/18 21:03 Active 5 mg PO Q4H PRN Blood Culture x2 Reflex Set [OM.PC] Stat Oth 12/18/18 17:42 Ordered Resuscitation Status Routine Resus Stat 12/19/18 06:51 Ordered Medication Orders Acetaminophen (Tylenol) 650 mg PO Q6H PRN PRN Reason: Pain (mild 1-3) Albuterol/Ipratropium (Duoneb 3.0-0.5 Mg/3 Ml) 3 ml NEB Q4HRRT PRN PRN Reason: Shortness of Breath Last Admin: 12/19/18 06:07 Dose: 3 ml Amlodipine Besylate (Norvasc) 5 mg PO DAILY [facility] Docusate Sodium (Colace) 100 mg PO BID PRN PRN Reason: Constipation Enoxaparin Sodium (Lovenox) 30 mg SUBCUT Q24H [facility] Sodium Chloride (Normal Saline) 1,000 mls @ 75 mls/hr IV ASDIRECTED [facility] Last Admin: 12/18/18 21:18 Dose: 75 mls/hr Meropenem 1 gm/ Sodium (Chloride) 100 mls @ 200 mls/hr IV Q8H [facility] Last Admin: 12/19/18 04:30 Dose: 200 mls/hr Levothyroxine Sodium (Levothyroxine) 125 mcg PO DAILY [facility] Non-Formulary Medication (Dexamethasone) 2 mg PO Q24H [facility] Non-Formulary Medication (Lorazepam) 0.5 mg PO Q8H PRN PRN Reason: Anxiety Non-Formulary Medication (Omeprazole Magnesium [Prilosec Otc]) 20 mg PO DAILY [facility] Nortriptyline HCl (Nortriptyline) 20 mg PO BEDTIME [facility] Oxycodone HCl (Oxycodone) 5 mg PO Q4H PRN PRN Reason: Pain (moderate 4-6) Last Admin: 12/19/18 05:30 Dose: 5 mg Temazepam (Restoril) 15 mg PO BEDTIME PRN PRN Reason: Insomnia Last Admin: 12/18/18 23:18 Dose: 15 mg Assessment/Plan Comment:: The patient is a 48-year-old lady who is currently suffering from multifocal pneumonia. The patient will be kept on meropenem due to her immunocompromise state and her previous history of radiation and chemotherapy. The patient is not neutropenic at this time therefore neutropenia precautions will not be necessary. I've ordered repeat laboratory studies to follow this. The patient has been encouraged to ambulate. The patient will also be kept on oxygen to help keep her saturations around 92%. The patient will also be probably appropriate for discharge in 1-2 days depending upon the results of the cultures. She has been recommended continue close follow-up with [facility] with regards to her chemotherapy and radiation treatment. - Mortality Measure Prognosis:: Good
[2018-12-19] MEDS ORDERED: LORazepam 0.5 MG Tab PO PRN (07:00)
[2018-12-19] MEDS: Dexamethasone 4 MG Tab PO SCH (07:55)
[2018-12-19] MEDS: Enoxaparin 40 MG/0.4 ML Syringe SUBCUT SCH (07:55)
[2018-12-19] MEDS: Omeprazole 20 MG Cap.CR PO SCH (07:55)
[2018-12-19] MEDS: amLODIPine 5 MG Tab PO SCH (08:55)
[2018-12-19] MEDS: Levothyroxine 125 MCG Tab PO SCH (08:56)
[2018-12-19] MEDS: Sodium Chloride 0.9% 1,000 ML IV SCH (09:22)
[2018-12-19] MEDS ORDERED: Nystatin Topical Powder 15 GM Bottle TOP PRN (10:55)
[2018-12-19] MEDS: Meropenem Premix 1 GM in Premix Bag 1 BAG IV SCH (20:12)
[2018-12-19] MEDS: Nortriptyline 10 MG Cap PO SCH (21:43)
[2018-12-20] MEDS: Sodium Chloride 0.9% 1,000 ML IV SCH ×2 (00:23→12:05)
[2018-12-20] MEDS: Meropenem Premix 1 GM in Premix Bag 1 BAG IV SCH ×3 (05:10→20:51)
[2018-12-20] MEDS: Enoxaparin 40 MG/0.4 ML Syringe SUBCUT SCH (06:51)
[2018-12-20] MEDS: Omeprazole 20 MG Cap.CR PO SCH (06:51)
[2018-12-20] MEDS: Dexamethasone 4 MG Tab PO SCH (06:51)
[2018-12-20 07:18] LABS: CHLORIDE,CL 106 mmol/L (98-107); SODIUM,NA 145 mmol/L (136-145)
--- NOTE | 2018-12-20 08:47 | PCM.PN ---
- General Info Date of Service: 12/20/18 Admission Dx/Problem (Free Text): Admission Diagnosis/Problem Admission Diagnosis/Problem Pneumonia, multifocal. Currently under chemotherapy and radiation for glioblastoma multiform Subjective Update: The patient is a 48-year-old lady who is admitted yesterday primarily secondary to multifocal pneumonia. The patient does have short-term memory deficits secondary to her brain cancer. The patient says that she is doing better today. She is still having cough and congestion. The patient has been tolerating diet. She has no other complaints today. She says that she is breathing better. Functional Status: Reports: Pain Controlled - Review of Systems General: Reports: Weakness HEENT: Reports: No Symptoms Pulmonary: Reports: Shortness of Breath Cardiovascular: Reports: No Symptoms Gastrointestinal: Reports: No Symptoms Genitourinary: Reports: No Symptoms Musculoskeletal: Reports: No Symptoms Skin: Reports: No Symptoms Neurological: Reports: No Symptoms Psychiatric: Reports: No Symptoms - Patient Data Vitals - Most Recent: Last Vital Signs Temp 36.7 C 12/20/18 04:00 Pulse 104 H 12/20/18 04:00 Resp 20 12/20/18 04:00 BP 106/77 12/20/18 04:00 Pulse Ox 88 L 12/20/18 04:00 Weight - Most Recent: 131.088 kg I&O - Last 24 Hours: Intake & Output 12/19/18 12/20/18 12/20/18 22:59 06:59 14:59 Intake Total 1820 1608 Output Total 1650 1500 Balance 170 108 Lab Results Last 24 Hours: Laboratory Results - last 24 hr 12/20/18 12/20/18 Range/Units 06:45 06:45 WBC 10.16 (4.0-11.0) K/uL RBC 4.61 (4.30-5.90) M/uL Hgb 13.9 (12.0-16.0) g/dL Hct 45.0 (36.0-46.0) % MCV 97.6 (80.0-98.0) fL MCH 30.2 (27.0-32.0) pg MCHC 30.9 L (31.0-37.0) g/dL RDW Std Deviation 49.8 (28.0-62.0) fl RDW Coeff of Amanda 14 (11.0-15.0) % Plt Count 344 (150-400) K/uL MPV 9.60 (7.40-12.00) fL Neut % (Auto) 84.9 H (48.0-80.0) % Lymph % (Auto) 11.0 L (16.0-40.0) % [place] % (Auto) 3.5 (0.0-15.0) % Eos % (Auto) 0.5 (0.0-7.0) % Baso % (Auto) 0.1 (0.0-1.5) % Neut # (Auto) 8.6 H (1.4-5.7) K/uL Lymph # (Auto) 1.1 (0.6-2.4) K/uL [place] # (Auto) 0.4 (0.0-0.8) K/uL Eos # (Auto) 0.1 (0.0-0.7) K/uL Baso # (Auto) 0.0 (0.0-0.1) K/uL Nucleated RBC % 0.0 /100WBC Nucleated RBCs # 0 K/uL Sodium 145 (136-145) mmol/L Potassium 4.4 (3.5-5.1) mmol/L Chloride 106 (98-107) mmol/L Carbon Dioxide 32.5 H (21.0-32.0) mmol/L BUN 13 (7.0-18.0) mg/dL Creatinine 0.9 (0.6-1.0) mg/dL Est Cr Clr Drug Dosing 87.30 mL/min Estimated GFR (MDRD) > 60.0 ml/min Glucose 114 H (74-106) mg/dL Calcium 8.7 (8.5-10.1) mg/dL Total Bilirubin 0.2 (0.2-1.0) mg/dL AST 16 (15-37) IU/L ALT 32 (14-63) IU/L Alkaline Phosphatase 76 (46-116) U/L Total Protein 6.1 L (6.4-8.2) g/dL Albumin 2.8 L (3.4-5.0) g/dL Globulin 3.3 (2.6-4.0) g/dL Albumin/Globulin Ratio 0.9 (0.9-1.6) Ward Results Last 24 Hours: Microbiology 12/18/18 18:05 Aerobic Blood Culture - Preliminary Blood - Venous - Lab Draw NO GROWTH AFTER 1 DAY Anaerobic Blood Culture - Preliminary NO GROWTH AFTER 1 DAY 12/18/18 17:57 Aerobic Blood Culture - Preliminary Blood - Venous NO GROWTH AFTER 1 DAY Anaerobic Blood Culture - Preliminary NO GROWTH AFTER 1 DAY Med Orders - Current: Current Medications Acetaminophen (Tylenol) 650 mg PO Q6H PRN PRN Reason: Pain (mild 1-3) Albuterol/Ipratropium (Duoneb 3.0-0.5 Mg/3 Ml) 3 ml NEB Q4HRRT PRN PRN Reason: Shortness of Breath Last Admin: 12/19/18 14:31 Dose: 3 ml Amlodipine Besylate (Norvasc) 5 mg PO DAILY [facility] [place] Last Admin: 12/19/18 08:55 Dose: 5 mg Dexamethasone (Dexamethasone) 2 mg PO Q24H [facility] [place] Last Admin: 12/20/18 06:51 Dose: 2 mg Docusate Sodium (Colace) 100 mg PO BID PRN PRN Reason: Constipation Enoxaparin Sodium (Lovenox) 40 mg SUBCUT Q24H [facility] [place] Last Admin: 12/20/18 06:51 Dose: 40 mg Sodium Chloride (Normal Saline) 1,000 mls @ 75 mls/hr IV ASDIRECTED [facility] [place] Last Admin: 12/20/18 00:23 Dose: 75 mls/hr Meropenem/Sodium Chloride 1 gm (/ Premix) 50 mls @ 100 mls/hr IV Q8H [facility] [place] Last Admin: 12/20/18 05:10 Dose: 100 mls/hr Levothyroxine Sodium (Levothyroxine) 125 mcg PO DAILY [facility] [place] Last Admin: 12/19/18 08:56 Dose: 125 mcg Lorazepam (Ativan) 0.5 mg PO Q8H PRN PRN Reason: Anxiety Nortriptyline HCl (Nortriptyline) 20 mg PO BEDTIME [facility] [place] Last Admin: 12/19/18 21:43 Dose: 20 mg Omeprazole (Omeprazole) 20 mg PO ACBREAKFAST [facility] [place] Last Admin: 12/20/18 06:51 Dose: 20 mg Oxycodone HCl (Oxycodone) 5 mg PO Q4H PRN PRN Reason: Pain (moderate 4-6) Last Admin: 12/19/18 21:42 Dose: 5 mg Temazepam (Restoril) 15 mg PO BEDTIME PRN PRN Reason: Insomnia Last Admin: 12/18/18 23:18 Dose: 15 mg Discontinued Medications Albuterol/Ipratropium (Duoneb 3.0-0.5 Mg/3 Ml) 3 ml NEB ONETIME ONE Stop: 12/18/18 17:43 Last Admin: 12/18/18 18:03 Dose: 3 ml Sodium Chloride (Normal Saline) 1,000 mls @ 999 mls/hr IV BOLUS ONE Stop: 12/18/18 18:41 Last Admin: 12/18/18 18:14 Dose: 999 mls/hr Meropenem 1 gm/ Sodium (Chloride) 100 mls @ 200 mls/hr IV ONETIME ONE Stop: 12/18/18 20:06 Last Admin: 12/18/18 20:20 Dose: Not Given Meropenem 1 gm/ Sodium (Chloride) 100 mls @ 200 mls/hr IV Q8H [facility] Meropenem 1 gm/ Sodium (Chloride) 100 mls @ 200 mls/hr IV Q8H [facility] Last Admin: 12/19/18 04:30 Dose: 200 mls/hr Sodium Chloride (Normal Saline) Confirm Administered Dose 50 mls @ as directed .ROUTE .STK-MED ONE Stop: 12/19/18 05:26 Last Admin: 12/19/18 05:35 Dose: 100 mls/hr Meropenem 1 gm/ Sodium (Chloride) 100 mls @ 200 mls/hr IV Q8H [facility] Last Admin: 12/19/18 11:58 Dose: 200 mls/hr Iopamidol (Isovue Multipack-370 (76%)) 50 ml IVPUSH ONETIME STA Stop: 12/18/18 18:36 Last Admin: 12/18/18 18:35 Dose: 50 ml Meropenem (Merrem) Confirm Administered Dose 1 gm .ROUTE .STK-MED ONE Stop: 12/19/18 05:24 Last Admin: 12/19/18 05:35 Dose: 1 gm Meropenem/Sodium Chloride (Meropenem) 1 gm IV ONETIME ONE Stop: 12/18/18 20:01 Last Admin: 12/18/18 20:20 Dose: 1 gm Pharmacy Consult (Consult To Pharmacy) 1 each .XX ASDIRECTED [facility]BAR[facility] - Exam Quality Assessment: Supplemental Oxygen General: Alert, Oriented, Cooperative HEENT: Pupils Equal, Pupils Reactive, EOMI, Mucous Membr. Moist/[place] Neck: Supple, Trachea Midline Lungs: Normal Respiratory Effort, Crackles, Rales Cardiovascular: Regular Rate, Regular Rhythm GI/Abdominal Exam: Normal Bowel Sounds, Soft, No Distention. No: Guarding, Rigid, Rebound Back Exam: Normal Inspection, Full Range of Motion Extremities: Normal Inspection, No Pedal Edema Skin: Warm, Dry, Intact Neurological: No New Focal Deficit Psy/Mental Status: Alert, Normal Affect, Normal Mood - Problem List & Annotations (1) Multifocal pneumonia SNOMED Code(s): 489441409 Code(s): J18.9 - PNEUMONIA, UNSPECIFIED ORGANISM Status: Acute Priority: High Current Visit: Yes (2) Hypoxia SNOMED Code(s): 445340725 Code(s): R09.02 - HYPOXEMIA Status: Acute Priority: High Current Visit : Yes (3) Glioblastoma multiforme of brain SNOMED Code(s): 717425951 Code(s): C71.9 - MALIGNANT NEOPLASM OF BRAIN, UNSPECIFIED Status: Chronic Priority: High Current Visit: Yes (4) History of craniotomy SNOMED Code(s): 365424444, 375288547 Code(s): Z98.890 - OTHER SPECIFIED POSTPROCEDURAL STATES Status: Chronic Priority: Medium Current Visit: No (5) Cephalgia SNOMED Code(s): 46061484 Code(s): R51 - HEADACHE Status: Chronic Priority: Medium Current Visit : No Qualifiers: Headache type: other headache syndrome Qualified Code(s): G44.89 - Other headache syndrome - Problem List Review Problem List Initiated/Reviewed/Updated: Yes - My Orders Last 24 Hours: My Active Orders 12/19/18 09:00 Levothyroxine 125 mcg PO DAILY amLODIPine [Norvasc] 5 mg PO DAILY 12/19/18 20:00 Meropenem Premix [Meropenem] 1 gm Premix Bag 1 bag IV Q8H 12/19/18 21:00 Nortriptyline 20 mg PO BEDTIME - Plan Plan:: The patient is a 48-year-old lady with multifocal pneumonia who is doing better today. She will be kept on meropenem for now. The patient is not neutropenic at this time however, I've ordered repeat laboratory testings in order to closely monitor her white blood cell count. Her white blood cell count currently is at 10.6 thousand. Other indices are essentially normal. Patient's renal function is good with EGFR of 87.3 mL/m. I've ordered repeat laboratory studies. The patient will also have a chest x-ray in the morning. The patient should be appropriate for discharge in 1-2 days depending upon her symptoms and her oxygen requirements.
[2018-12-20] MEDS: amLODIPine 5 MG Tab PO SCH (09:50)
[2018-12-20] MEDS: Levothyroxine 125 MCG Tab PO SCH (09:50)
[2018-12-20] MEDS: oxyCODONE 5 MG Tab PO PRN ×2 (09:58→21:25)
[2018-12-20] MEDS: Albuterol/Ipratropium 3.0-0.5 MG/3 ML Neb Soln NEB PRN ×2 (12:08→19:18)
[2018-12-20] MEDS: Nortriptyline 10 MG Cap PO SCH (20:51)
[2018-12-21] MEDS: Albuterol/Ipratropium 3.0-0.5 MG/3 ML Neb Soln NEB PRN ×2 (01:46→08:18)
[2018-12-21] MEDS: Sodium Chloride 0.9% 1,000 ML IV SCH (02:08)
[2018-12-21] MEDS: Meropenem Premix 1 GM in Premix Bag 1 BAG IV SCH ×3 (04:33→20:54)
[2018-12-21] MEDS: Omeprazole 20 MG Cap.CR PO SCH (06:42)
[2018-12-21] MEDS: Dexamethasone 4 MG Tab PO SCH (06:42)
[2018-12-21] MEDS: Enoxaparin 40 MG/0.4 ML Syringe SUBCUT SCH (06:42)
[2018-12-21 06:44] LABS: CHLORIDE,CL 106 mmol/L (98-107); SODIUM,NA 145 mmol/L (136-145)
[2018-12-21] MEDS: Levothyroxine 125 MCG Tab PO SCH (09:23)
[2018-12-21] MEDS: oxyCODONE 5 MG Tab PO PRN ×2 (09:24→15:16)
[2018-12-21] MEDS: amLODIPine 5 MG Tab PO SCH (09:24)
--- NOTE | 2018-12-21 09:47 | PCM.PN ---
- General Info Date of Service: 12/21/18 Admission Dx/Problem (Free Text): Admission Diagnosis/Problem Admission Diagnosis/Problem Pneumonia, multifocal. Currently under chemotherapy and radiation for glioblastoma multiform Subjective Update: The patient is a 48-year-old lady who had been admitted to acute hospitalization on December 19, 2018 due to multifocal pneumonia. The patient has short-term memory defects and she does not remember me from yesterday. The patient has been having difficulty in maintaining oxygen saturations in spite of increasing oxygen supply. She was having some cough and congestion. The patient says that she feels more fatigued today. Functional Status: Reports: Pain Controlled - Review of Systems General: Reports: Weakness, Fatigue HEENT: Reports: No Symptoms Pulmonary: Reports: Shortness of Breath, Cough, Sputum Cardiovascular: Reports: No Symptoms Gastrointestinal: Reports: No Symptoms Genitourinary: Reports: No Symptoms Musculoskeletal: Reports: No Symptoms Skin: Reports: No Symptoms Neurological: Reports: No Symptoms Psychiatric: Reports: No Symptoms - Patient Data Vitals - Most Recent: Last Vital Signs Temp 37.4 C 12/21/18 08:00 Pulse 115 H 12/21/18 08:00 Resp 18 12/21/18 08:00 BP 126/90 12/21/18 09:24 Pulse Ox 90 L 12/21/18 08:00 Weight - Most Recent: 131.088 kg I&O - Last 24 Hours: Intake & Output 12/20/18 12/21/18 12/21/18 22:59 06:59 14:59 Intake Total 550 1799 Output Total 750 1300 Balance -200 499 Lab Results Last 24 Hours: Laboratory Results - last 24 hr 12/21/18 12/21/18 Range/Units 06:12 06:12 WBC 9.15 (4.0-11.0) K/uL RBC 4.34 (4.30-5.90) M/uL Hgb 13.1 (12.0-16.0) g/dL Hct 42.2 (36.0-46.0) % MCV 97.2 (80.0-98.0) fL MCH 30.2 (27.0-32.0) pg MCHC 31.0 (31.0-37.0) g/dL RDW Std Deviation 49.6 (28.0-62.0) fl RDW Coeff of Amanda 14 (11.0-15.0) % Plt Count 305 (150-400) K/uL MPV 9.30 (7.40-12.00) fL Neut % (Auto) 82.9 H (48.0-80.0) % Lymph % (Auto) 11.1 L (16.0-40.0) % [place] % (Auto) 5.2 (0.0-15.0) % Eos % (Auto) 0.7 (0.0-7.0) % Baso % (Auto) 0.1 (0.0-1.5) % Neut # (Auto) 7.6 H (1.4-5.7) K/uL Lymph # (Auto) 1.0 (0.6-2.4) K/uL [place] # (Auto) 0.5 (0.0-0.8) K/uL Eos # (Auto) 0.1 (0.0-0.7) K/uL Baso # (Auto) 0.0 (0.0-0.1) K/uL Nucleated RBC % 0.0 /100WBC Nucleated RBCs # 0 K/uL Sodium 145 (136-145) mmol/L Potassium 4.2 (3.5-5.1) mmol/L Chloride 106 (98-107) mmol/L Carbon Dioxide 28.7 (21.0-32.0) mmol/L BUN 12 (7.0-18.0) mg/dL Creatinine 0.8 (0.6-1.0) mg/dL Est Cr Clr Drug Dosing 98.21 mL/min Estimated GFR (MDRD) > 60.0 ml/min Glucose 87 (74-106) mg/dL Calcium 8.9 (8.5-10.1) mg/dL Total Bilirubin 0.2 (0.2-1.0) mg/dL AST 19 (15-37) IU/L ALT 31 (14-63) IU/L Alkaline Phosphatase 74 (46-116) U/L Total Protein 5.9 L (6.4-8.2) g/dL Albumin 2.7 L (3.4-5.0) g/dL Globulin 3.2 (2.6-4.0) g/dL Albumin/Globulin Ratio 0.8 L (0.9-1.6) Ward Results Last 24 Hours: Microbiology 08/15/19 18:05 Aerobic Blood Culture - Preliminary Blood - Venous - Lab Draw NO GROWTH AFTER 2 DAYS Anaerobic Blood Culture - Preliminary NO GROWTH AFTER 2 DAYS 12/18/18 17:57 Aerobic Blood Culture - Preliminary Blood - Venous NO GROWTH AFTER 2 DAYS Anaerobic Blood Culture - Preliminary NO GROWTH AFTER 2 DAYS Med Orders - Current: Current Medications Acetaminophen (Tylenol) 650 mg PO Q6H PRN PRN Reason: Pain (mild 1-3) Albuterol/Ipratropium (Duoneb 3.0-0.5 Mg/3 Ml) 3 ml NEB Q4HRRT PRN PRN Reason: Shortness of Breath Last Admin: 12/21/18 08:18 Dose: 3 ml Amlodipine Besylate (Norvasc) 5 mg PO DAILY [facility] Last Admin: 12/21/18 09:24 Dose: 5 mg Dexamethasone (Dexamethasone) 2 mg PO Q24H [facility] Last Admin: 12/21/18 06:42 Dose: 2 mg Docusate Sodium (Colace) 100 mg PO BID PRN PRN Reason: Constipation Enoxaparin Sodium (Lovenox) 40 mg SUBCUT Q24H [facility] Last Admin: 12/21/18 06:42 Dose: 40 mg Sodium Chloride (Normal Saline) 1,000 mls @ 75 mls/hr IV ASDIRECTED [facility] Last Admin: 12/21/18 02:08 Dose: 75 mls/hr Meropenem/Sodium Chloride 1 gm (/ Premix) 50 mls @ 100 mls/hr IV Q8H [facility] Last Admin: 12/21/18 04:33 Dose: 100 mls/hr Levothyroxine Sodium (Levothyroxine) 125 mcg PO DAILY [facility] Last Admin: 12/21/18 09:23 Dose: 125 mcg Lorazepam (Ativan) 0.5 mg PO Q8H PRN PRN Reason: Anxiety Nortriptyline HCl (Nortriptyline) 20 mg PO BEDTIME [facility] Last Admin: 12/20/18 20:51 Dose: 20 mg Omeprazole (Omeprazole) 20 mg PO ACBREAKFAST [facility] Last Admin: 12/21/18 06:42 Dose: 20 mg Oxycodone HCl (Oxycodone) 5 mg PO Q4H PRN PRN Reason: Pain (moderate 4-6) Last Admin: 12/21/18 09:24 Dose: 5 mg Temazepam (Restoril) 15 mg PO BEDTIME PRN PRN Reason: Insomnia Last Admin: 12/18/18 23:18 Dose: 15 mg Discontinued Medications Albuterol/Ipratropium (Duoneb 3.0-0.5 Mg/3 Ml) 3 ml NEB ONETIME ONE Stop: 12/18/18 17:43 Last Admin: 12/18/18 18:03 Dose: 3 ml Sodium Chloride (Normal Saline) 1,000 mls @ 999 mls/hr IV BOLUS ONE Stop: 12/18/18 18:41 Last Admin: 12/18/18 18:14 Dose: 999 mls/hr Meropenem 1 gm/ Sodium (Chloride) 100 mls @ 200 mls/hr IV ONETIME ONE Stop: 12/18/18 20:06 Last Admin: 12/18/18 20:20 Dose: Not Given Meropenem 1 gm/ Sodium (Chloride) 100 mls @ 200 mls/hr IV Q8H [facility] Meropenem 1 gm/ Sodium (Chloride) 100 mls @ 200 mls/hr IV Q8H [facility] Last Admin: 12/19/18 04:30 Dose: 200 mls/hr Sodium Chloride (Normal Saline) Confirm Administered Dose 50 mls @ as directed .ROUTE .STK-MED ONE Stop: 12/19/18 05:26 Last Admin: 12/19/18 05:35 Dose: 100 mls/hr Meropenem 1 gm/ Sodium (Chloride) 100 mls @ 200 mls/hr IV Q8H [facility] Last Admin: 12/19/18 11:58 Dose: 200 mls/hr Iopamidol (Isovue Multipack-370 (76%)) 50 ml IVPUSH ONETIME STA Stop: 12/18/18 18:36 Last Admin: 12/18/18 18:35 Dose: 50 ml Meropenem (Merrem) Confirm Administered Dose 1 gm .ROUTE .STK-MED ONE Stop: 12/19/18 05:24 Last Admin: 12/19/18 05:35 Dose: 1 gm Meropenem/Sodium Chloride (Meropenem) 1 gm IV ONETIME ONE Stop: 12/18/18 20:01 Last Admin: 12/18/18 20:20 Dose: 1 gm Pharmacy Consult (Consult To Pharmacy) 1 each .XX ASDIRECTED [facility] - Exam Quality Assessment: Supplemental Oxygen General: Alert, Oriented, Cooperative HEENT: Pupils Equal, Pupils Reactive, EOMI, Mucous Membr. Moist/[place], Other ( Craniotomy right frontal parietal area) Neck: Supple, Trachea Midline Lungs: Decreased Breath Sounds, Crackles Cardiovascular: Regular Rhythm, No Murmurs, Tachycardia GI/Abdominal Exam: Normal Bowel Sounds, Soft, Non-Tender, No Distention Back Exam: Normal Inspection Extremities: Normal Inspection, No Pedal Edema Skin: Warm, Dry, Intact Neurological: No New Focal Deficit Psy/Mental Status: Alert, Normal Affect, Normal Mood - Problem List & Annotations (1) Multifocal pneumonia SNOMED Code(s): 673031990 Code(s): J18.9 - PNEUMONIA, UNSPECIFIED ORGANISM Status: Acute Priority: High Current Visit: Yes (2) Hypoxia SNOMED Code(s): 520052249 Code(s): R09.02 - HYPOXEMIA Status: Acute Priority: High Current Visit : Yes Annotation/Comment:: Worsening (3) Glioblastoma multiforme of brain SNOMED Code(s): 793664884 Code(s): C71.9 - MALIGNANT NEOPLASM OF BRAIN, UNSPECIFIED Status: Chronic Priority: High Current Visit: Yes (4) History of craniotomy SNOMED Code(s): 098971790, 535763850 Code(s): Z98.890 - OTHER SPECIFIED POSTPROCEDURAL STATES Status: Chronic Priority: Medium Current Visit: No (5) Cephalgia SNOMED Code(s): 19899125 Code(s): R51 - HEADACHE Status: Chronic Priority: Medium Current Visit : No Qualifiers: Headache type: other headache syndrome Qualified Code(s): G44.89 - Other headache syndrome - Problem List Review Problem List Initiated/Reviewed/Updated: Yes - My Orders Last 24 Hours: My Active Orders 12/21/18 09:40 Chest 1V Frontal [CR] Urgent 12/22/18 05:11 Chest 1V Frontal [CR] AM - Plan Plan:: The patient is a 48-year-old lady who has a history of multifocal pneumonia and she has had increasing oxygen demands today. Patient will have a chest x-ray ordered. Awaiting results. The patient will be kept on her doses of meropenem now. The patient's previously noted leukocytosis is also resolved. The remainder of her laboratory testings are somewhat bland. The patient has required 6 L/m of oxygen by nasal cannula to keep her oxygen saturations around 90%. She had been previously noted to have oxygen saturations around 70. The patient's fluids have been discontinued and she had been ordered to have 20 mg of Lasix IV 1 dose now. I explained to her and that if she is unable to maintain her oxygen saturations will start with BiPAP and then possible intubation. I've ordered repeat laboratory testings. I've also ordered an ABG. The patient will be kept on her current diet as tolerated.
[2018-12-21] MEDS ORDERED: Furosemide 40 MG/4 ML VIAL IVPUSH ONE (10:07)
--- NOTE | 2018-12-21 10:16 | CR ---
INDICATION: Hypoxia. TECHNIQUE: Chest 1 view. COMPARISON: CT scanning of the chest performed 3 days prior. FINDINGS: Heart size is stable and in the upper range of normal allowing for AP portable technique. Central vascular markings are prominent and accentuated due to a shallow depth of inspiratory effort. There are patchy infiltrates noted throughout the right mid and right lower lung. Minimal patchy infiltrate is suspected at the left lung base. No significant pleural effusion is evident. IMPRESSION: Bilateral patchy infiltrates/pneumonia (right worse than left). Dictated by Wesley Ramirez MD @ Dec 21 2018 10:08AM Signed by Dr. Wesley Ramirez @ Dec 21 2018 10:13AM
[2018-12-21] MEDS: Nortriptyline 10 MG Cap PO SCH (20:51)
[2018-12-22] MEDS: Meropenem Premix 1 GM in Premix Bag 1 BAG IV SCH ×3 (03:46→20:37)
[2018-12-22] MEDS: Dexamethasone 4 MG Tab PO SCH (06:39)
[2018-12-22] MEDS: Omeprazole 20 MG Cap.CR PO SCH (06:40)
[2018-12-22] MEDS: Enoxaparin 40 MG/0.4 ML Syringe SUBCUT SCH (06:41)
[2018-12-22 06:49] LABS: CHLORIDE,CL 103 mmol/L (98-107); SODIUM,NA 142 mmol/L (136-145)
--- NOTE | 2018-12-22 08:34 | PCM.PN ---
<Andria Norton M - Last Filed: 12/22/18 09:20> - General Info Date of Service: 12/22/18 Admission Dx/Problem (Free Text): Admission Diagnosis/Problem Admission Diagnosis/Problem Pneumonia, multifocal. Currently under chemotherapy and radiation for glioblastoma multiform Subjective Update: Sitting on commode. Denies concerns now, requesting discharge so she can see daughter off to school tomorrow. No chest pain. Reports shortness of breath and dry hacking cough, that is non-productive. Functional Status: Reports: Pain Controlled, Tolerating Diet, Ambulating, Urinating - Review of Systems General: Reports: Malaise HEENT: Reports: No Symptoms. Denies: Headaches, Sore Throat, Visual Changes Pulmonary: Reports: Shortness of Breath, Cough. Denies: Sputum, Hemoptysis, Wheezing Cardiovascular: Denies: Chest Pain, Palpitations, Edema Gastrointestinal: Reports: No Symptoms. Denies: Abdominal Pain, Nausea, Vomiting Genitourinary: Reports: No Symptoms Musculoskeletal: Reports: No Symptoms Skin: Reports: No Symptoms Neurological: Reports: No Symptoms Psychiatric: Reports: No Symptoms - Patient Data Vitals - Most Recent: Last Vital Signs Temp 97.3 F 12/22/18 04:00 Pulse 91 12/22/18 04:00 Resp 20 12/22/18 04:00 BP 130/93 H 12/22/18 04:00 Pulse Ox 93 L 12/22/18 04:00 Weight - Most Recent: 131.088 kg I&O - Last 24 Hours: Intake & Output 12/21/18 12/22/18 12/22/18 22:59 06:59 14:59 Intake Total 1130 490 Output Total 1750 1500 Balance -620 -1010 Lab Results Last 24 Hours: Laboratory Results - last 24 hr 12/21/18 12/22/18 12/22/18 Range/Units 10:30 06:24 06:24 WBC 8.53 (4.0-11.0) K/uL RBC 4.38 (4.30-5.90) M/uL Hgb 13.2 (12.0-16.0) g/dL Hct 42.2 (36.0-46.0) % MCV 96.3 (80.0-98.0) fL MCH 30.1 (27.0-32.0) pg MCHC 31.3 (31.0-37.0) g/dL RDW Std Deviation 48.8 (28.0-62.0) fl RDW Coeff of Amanda 14 (11.0-15.0) % Plt Count 293 (150-400) K/uL MPV 9.30 (7.40-12.00) fL Neut % (Auto) 82.8 H (48.0-80.0) % Lymph % (Auto) 11.1 L (16.0-40.0) % Clarke % (Auto) 4.8 (0.0-15.0) % Eos % (Auto) 1.2 (0.0-7.0) % Baso % (Auto) 0.1 (0.0-1.5) % Neut # (Auto) 7.1 H (1.4-5.7) K/uL Lymph # (Auto) 1.0 (0.6-2.4) K/uL Clarke # (Auto) 0.4 (0.0-0.8) K/uL Eos # (Auto) 0.1 (0.0-0.7) K/uL Baso # (Auto) 0.0 (0.0-0.1) K/uL Nucleated RBC % 0.0 /100WBC Nucleated RBCs # 0 K/uL ABG pH 7.432 (7.35-7.45) ABG pCO2 45 (35-45) mmHG ABG pO2 70 L (75-100) mmHG ABG HCO3 30 H (22-26) mEq/L ABG Total CO2 27.2 ABG Base Excess 5.2 H (-2.0-2.0) Sodium 142 (136-145) mmol/L Potassium 4.1 (3.5-5.1) mmol/L Chloride 103 (98-107) mmol/L Carbon Dioxide 34.0 H (21.0-32.0) mmol/L BUN 14 (7.0-18.0) mg/dL Creatinine 0.8 (0.6-1.0) mg/dL Est Cr Clr Drug Dosing 98.21 mL/min Estimated GFR (MDRD) > 60.0 ml/min Glucose 90 (74-106) mg/dL Calcium 9.0 (8.5-10.1) mg/dL Total Bilirubin 0.4 (0.2-1.0) mg/dL AST 19 (15-37) IU/L ALT 29 (14-63) IU/L Alkaline Phosphatase 77 (46-116) U/L Total Protein 6.3 L (6.4-8.2) g/dL Albumin 2.8 L (3.4-5.0) g/dL Globulin 3.5 (2.6-4.0) g/dL Albumin/Globulin Ratio 0.8 L (0.9-1.6) Ward Results Last 24 Hours: Microbiology 12/18/18 18:05 Aerobic Blood Culture - Preliminary Blood - Venous - Lab Draw NO GROWTH AFTER 3 DAYS Anaerobic Blood Culture - Preliminary NO GROWTH AFTER 3 DAYS 12/18/18 17:57 Aerobic Blood Culture - Preliminary Blood - Venous NO GROWTH AFTER 3 DAYS Anaerobic Blood Culture - Preliminary NO GROWTH AFTER 3 DAYS Med Orders - Current: Current Medications Acetaminophen (Tylenol) 650 mg PO Q6H PRN PRN Reason: Pain (mild 1-3) Albuterol/Ipratropium (Duoneb 3.0-0.5 Mg/3 Ml) 3 ml NEB Q4HRRT PRN PRN Reason: Shortness of Breath Last Admin: 12/21/18 08:18 Dose: 3 ml Amlodipine Besylate (Norvasc) 5 mg PO DAILY [facility] Last Admin: 12/21/18 09:24 Dose: 5 mg Dexamethasone (Dexamethasone) 2 mg PO Q24H [facility] Last Admin: 12/22/18 06:39 Dose: 2 mg Docusate Sodium (Colace) 100 mg PO BID PRN PRN Reason: Constipation Enoxaparin Sodium (Lovenox) 40 mg SUBCUT Q24H [facility] Last Admin: 12/22/18 06:41 Dose: 40 mg Meropenem/Sodium Chloride 1 gm (/ Premix) 50 mls @ 100 mls/hr IV Q8H [facility] Last Admin: 12/22/18 03:46 Dose: 100 mls/hr Levofloxacin/Dextrose 750 mg/ (Premix) 150 mls @ 100 mls/hr IV Q24H [facility] Levothyroxine Sodium (Levothyroxine) 125 mcg PO DAILY [facility] Last Admin: 12/21/18 09:23 Dose: 125 mcg Lorazepam (Ativan) 0.5 mg PO Q8H PRN PRN Reason: Anxiety Nortriptyline HCl (Nortriptyline) 20 mg PO BEDTIME [facility] Last Admin: 12/21/18 20:51 Dose: 20 mg Omeprazole (Omeprazole) 20 mg PO ACBREAKFAST [facility] Last Admin: 12/22/18 06:40 Dose: 20 mg Oxycodone HCl (Oxycodone) 5 mg PO Q4H PRN PRN Reason: Pain (moderate 4-6) Last Admin: 12/21/18 15:16 Dose: 5 mg Temazepam (Restoril) 15 mg PO BEDTIME PRN PRN Reason: Insomnia Last Admin: 12/18/18 23:18 Dose: 15 mg Discontinued Medications Albuterol/Ipratropium (Duoneb 3.0-0.5 Mg/3 Ml) 3 ml NEB ONETIME ONE Stop: 12/18/18 17:43 Last Admin: 12/18/18 18:03 Dose: 3 ml Furosemide (Lasix) 20 mg IVPUSH NOW ONE Stop: 12/21/18 10:08 Last Admin: 12/21/18 10:35 Dose: 20 mg Sodium Chloride (Normal Saline) 1,000 mls @ 999 mls/hr IV BOLUS ONE Stop: 12/18/18 18:41 Last Admin: 12/18/18 18:14 Dose: 999 mls/hr Meropenem 1 gm/ Sodium (Chloride) 100 mls @ 200 mls/hr IV ONETIME ONE Stop: 12/18/18 20:06 Last Admin: 12/18/18 20:20 Dose: Not Given Sodium Chloride (Normal Saline) 1,000 mls @ 75 mls/hr IV ASDIRECTED [facility] Last Admin: 12/21/18 02:08 Dose: 75 mls/hr Meropenem 1 gm/ Sodium (Chloride) 100 mls @ 200 mls/hr IV Q8H [facility] Meropenem 1 gm/ Sodium (Chloride) 100 mls @ 200 mls/hr IV Q8H [facility] Last Admin: 12/19/18 04:30 Dose: 200 mls/hr Sodium Chloride (Normal Saline) Confirm Administered Dose 50 mls @ as directed .ROUTE .STK-MED ONE Stop: 12/19/18 05:26 Last Admin: 12/19/18 05:35 Dose: 100 mls/hr Meropenem 1 gm/ Sodium (Chloride) 100 mls @ 200 mls/hr IV Q8H [facility] Last Admin: 12/19/18 11:58 Dose: 200 mls/hr Iopamidol (Isovue Multipack-370 (76%)) 50 ml IVPUSH ONETIME STA Stop: 12/18/18 18:36 Last Admin: 12/18/18 18:35 Dose: 50 ml Meropenem (Merrem) Confirm Administered Dose 1 gm .ROUTE .STK-MED ONE Stop: 12/19/18 05:24 Last Admin: 12/19/18 05:35 Dose: 1 gm Meropenem/Sodium Chloride (Meropenem) 1 gm IV ONETIME ONE Stop: 12/18/18 20:01 Last Admin: 12/18/18 20:20 Dose: 1 gm Pharmacy Consult (Consult To Pharmacy) 1 each .XX ASDIRECTED [facility] - Exam Quality Assessment: Supplemental Oxygen, DVT Prophylaxis General: Alert, Oriented, Cooperative, No Acute Distress Neck: Supple Lungs: Clear to Auscultation. No: Normal Respiratory Effort (dyspnea noted with speech) Cardiovascular: Regular Rate, Regular Rhythm, No Murmurs GI/Abdominal Exam: Normal Bowel Sounds, Soft, Non-Tender Extremities: Normal Inspection, Normal Range of Motion, Non-Tender Neurological: No New Focal Deficit Psy/Mental Status: Alert, Normal Affect, Normal Mood - Problem List & Annotations (1) Hypoxia SNOMED Code(s): 177354346 Code(s): R09.02 - HYPOXEMIA Status: Acute Priority: High Current Visit : Yes Annotation/Comment:: Worsening (2) Multifocal pneumonia SNOMED Code(s): 930811694 Code(s): J18.9 - PNEUMONIA, UNSPECIFIED ORGANISM Status: Acute Priority: High Current Visit: Yes (3) Immunosuppression SNOMED Code(s): 39363841 Code(s): D89.9 - DISORDER INVOLVING THE IMMUNE MECHANISM, UNSPECIFIED Status: Acute Current Visit: Yes (4) Glioblastoma multiforme of brain SNOMED Code(s): 617799670 Code(s): C71.9 - MALIGNANT NEOPLASM OF BRAIN, UNSPECIFIED Status: Chronic Priority: High Current Visit: Yes (5) Grade III astrocytoma SNOMED Code(s): 277529054208912, 218893979617016 Code(s): C71.9 - MALIGNANT NEOPLASM OF BRAIN, UNSPECIFIED Status: Chronic Current Visit: No (6) Poor short-term memory SNOMED Code(s): 384103020 Code(s): R41.3 - OTHER AMNESIA Status: Chronic Current Visit: No (7) History of craniotomy SNOMED Code(s): 846108333, 110920570 Code(s): Z98.890 - OTHER SPECIFIED POSTPROCEDURAL STATES Status: Chronic Priority: Medium Current Visit: No - Problem List Review Problem List Initiated/Reviewed/Updated: Yes - My Orders Last 24 Hours: My Active Orders 12/22/18 08:15 Levofloxacin/Dextrose 5%-Water [Levaquin in D5W 750 MG/150 ML] 750 mg Premix Bag 1 bag IV Q24H 12/22/18 08:32 Patient Status [ADT] Stat - Plan Plan:: This 48 year old female admitted with multifocal pneumonia and hypoxia 1. CAP: with complicating immunosuppression from chemotherapy, radiation therapy , and steroid use. Continue Meropenem, will add Levaquin for atypical coverage since hypoxia continues with little improvement. CXR continues to have multi- lobar infiltrates. Denies productive cough, but has dry hacking cough with dyspnea. Dropped to 80% on RA this morning, continue with 3.5 L NC, sating low 90s for now. She is stable and alert. Reports dry nasal membranes, will add humidity to NC. Continue Duonebs PRN. Continue to encourage IS every 1 hour. Oxygen to keep sats 90%, wean as possible. BC remain negative. 2. Glioblastoma: Recently on chemotherapy and radiation. Monitor. Short term memory loss from craniotomy. Continue Dexamethasone and Nortriptyline. 3. HTN: Norvasc, stable. 4. Hypothyroidism: Levothyroxine. Stable. VTE prophylaxis: Lovenox Dispo: Will move to inpatient today due to continued hypoxia and the need for continued treatment. Expanding antibiotic coverage today. <Moy Wiggins - Last Filed: 12/22/18 13:42> - General Info Admission Dx/Problem (Free Text): I have seen and evaluated the patient independent of Rubina Norton CNP. I have reviewed and agree with the plan and care as outlined for this patient by her. I have discussed the case with her. Please see orders. - Patient Data Vitals - Most Recent: Last Vital Signs Temp 35.6 C 12/22/18 11:51 Pulse 112 H 12/22/18 11:51 Resp 22 H 12/22/18 11:51 BP 126/84 12/22/18 11:51 Pulse Ox 92 L 12/22/18 11:51 I&O - Last 24 Hours: Intake & Output 12/21/18 12/22/18 12/22/18 22:59 06:59 14:59 Intake Total 1130 490 150 Output Total 1750 1500 Balance -620 -1010 150 Lab Results Last 24 Hours: Laboratory Results - last 24 hr 12/22/18 12/22/18 Range/Units 06:24 06:24 WBC 8.53 (4.0-11.0) K/uL RBC 4.38 (4.30-5.90) M/uL Hgb 13.2 (12.0-16.0) g/dL Hct 42.2 (36.0-46.0) % MCV 96.3 (80.0-98.0) fL MCH 30.1 (27.0-32.0) pg MCHC 31.3 (31.0-37.0) g/dL RDW Std Deviation 48.8 (28.0-62.0) fl RDW Coeff of Amanda 14 (11.0-15.0) % Plt Count 293 (150-400) K/uL MPV 9.30 (7.40-12.00) fL Neut % (Auto) 82.8 H (48.0-80.0) % Lymph % (Auto) 11.1 L (16.0-40.0) % Clarke % (Auto) 4.8 (0.0-15.0) % Eos % (Auto) 1.2 (0.0-7.0) % Baso % (Auto) 0.1 (0.0-1.5) % Neut # (Auto) 7.1 H (1.4-5.7) K/uL Lymph # (Auto) 1.0 (0.6-2.4) K/uL Clarke # (Auto) 0.4 (0.0-0.8) K/uL Eos # (Auto) 0.1 (0.0-0.7) K/uL Baso # (Auto) 0.0 (0.0-0.1) K/uL Nucleated RBC % 0.0 /100WBC Nucleated RBCs # 0 K/uL Sodium 142 (136-145) mmol/L Potassium 4.1 (3.5-5.1) mmol/L Chloride 103 (98-107) mmol/L Carbon Dioxide 34.0 H (21.0-32.0) mmol/L BUN 14 (7.0-18.0) mg/dL Creatinine 0.8 (0.6-1.0) mg/dL Est Cr Clr Drug Dosing 98.21 mL/min Estimated GFR (MDRD) > 60.0 ml/min Glucose 90 (74-106) mg/dL Calcium 9.0 (8.5-10.1) mg/dL Total Bilirubin 0.4 (0.2-1.0) mg/dL AST 19 (15-37) IU/L ALT 29 (14-63) IU/L Alkaline Phosphatase 77 (46-116) U/L Total Protein 6.3 L (6.4-8.2) g/dL Albumin 2.8 L (3.4-5.0) g/dL Globulin 3.5 (2.6-4.0) g/dL Albumin/Globulin Ratio 0.8 L (0.9-1.6) Ward Results Last 24 Hours: Microbiology 12/18/18 18:05 Aerobic Blood Culture - Preliminary Blood - Venous - Lab Draw NO GROWTH AFTER 3 DAYS Anaerobic Blood Culture - Preliminary NO GROWTH AFTER 3 DAYS 12/18/18 17:57 Aerobic Blood Culture - Preliminary Blood - Venous NO GROWTH AFTER 3 DAYS Anaerobic Blood Culture - Preliminary NO GROWTH AFTER 3 DAYS Med Orders - Current: Current Medications Acetaminophen (Tylenol) 650 mg PO Q6H PRN PRN Reason: Pain (mild 1-3) Albuterol/Ipratropium (Duoneb 3.0-0.5 Mg/3 Ml) 3 ml NEB Q4HRRT PRN PRN Reason: Shortness of Breath Last Admin: 12/21/18 08:18 Dose: 3 ml Amlodipine Besylate (Norvasc) 5 mg PO DAILY [facility] Last Admin: 12/22/18 08:43 Dose: 5 mg Dexamethasone (Dexamethasone) 2 mg PO Q24H [facility] Last Admin: 12/22/18 06:39 Dose: 2 mg Docusate Sodium (Colace) 100 mg PO BID PRN PRN Reason: Constipation Enoxaparin Sodium (Lovenox) 40 mg SUBCUT Q24H [facility] Last Admin: 12/22/18 06:41 Dose: 40 mg Meropenem/Sodium Chloride 1 gm (/ Premix) 50 mls @ 100 mls/hr IV Q8H [facility] Last Admin: 12/22/18 11:41 Dose: 100 mls/hr Levofloxacin/Dextrose 750 mg/ (Premix) 150 mls @ 100 mls/hr IV Q24H [facility] Last Admin: 12/22/18 08:46 Dose: 100 mls/hr Levothyroxine Sodium (Levothyroxine) 125 mcg PO DAILY [facility] Last Admin: 12/22/18 08:43 Dose: 125 mcg Lidocaine/Prilocaine (Emla Crm) 0 gm TOP ASDIRECTED PRN PRN Reason: Peripheral IV insertion Last Admin: 12/22/18 12:37 Dose: 1 applic Lorazepam (Ativan) 0.5 mg PO Q8H PRN PRN Reason: Anxiety Nortriptyline HCl (Nortriptyline) 20 mg PO BEDTIME [facility] Last Admin: 12/21/18 20:51 Dose: 20 mg Omeprazole (Omeprazole) 20 mg PO ACBREAKFAST [facility] Last Admin: 12/22/18 06:40 Dose: 20 mg Oxycodone HCl (Oxycodone) 5 mg PO Q4H PRN PRN Reason: Pain (moderate 4-6) Last Admin: 12/21/18 15:16 Dose: 5 mg Temazepam (Restoril) 15 mg PO BEDTIME PRN PRN Reason: Insomnia Last Admin: 12/18/18 23:18 Dose: 15 mg Discontinued Medications Albuterol/Ipratropium (Duoneb 3.0-0.5 Mg/3 Ml) 3 ml NEB ONETIME ONE Stop: 12/18/18 17:43 Last Admin: 12/18/18 18:03 Dose: 3 ml Furosemide (Lasix) 20 mg IVPUSH NOW ONE Stop: 12/21/18 10:08 Last Admin: 12/21/18 10:35 Dose: 20 mg Sodium Chloride (Normal Saline) 1,000 mls @ 999 mls/hr IV BOLUS ONE Stop: 12/18/18 18:41 Last Admin: 12/18/18 18:14 Dose: 999 mls/hr Meropenem 1 gm/ Sodium (Chloride) 100 mls @ 200 mls/hr IV ONETIME ONE Stop: 12/18/18 20:06 Last Admin: 12/18/18 20:20 Dose: Not Given Sodium Chloride (Normal Saline) 1,000 mls @ 75 mls/hr IV ASDIRECTED [facility] Last Admin: 12/21/18 02:08 Dose: 75 mls/hr Meropenem 1 gm/ Sodium (Chloride) 100 mls @ 200 mls/hr IV Q8H [facility] Meropenem 1 gm/ Sodium (Chloride) 100 mls @ 200 mls/hr IV Q8H [facility] Last Admin: 12/19/18 04:30 Dose: 200 mls/hr Sodium Chloride (Normal Saline) Confirm Administered Dose 50 mls @ as directed .ROUTE .STK-MED ONE Stop: 12/19/18 05:26 Last Admin: 12/19/18 05:35 Dose: 100 mls/hr Meropenem 1 gm/ Sodium (Chloride) 100 mls @ 200 mls/hr IV Q8H [facility] Last Admin: 12/19/18 11:58 Dose: 200 mls/hr Iopamidol (Isovue Multipack-370 (76%)) 50 ml IVPUSH ONETIME [facility]A Stop: 12/18/18 18:36 Last Admin: 12/18/18 18:35 Dose: 50 ml Meropenem (Merrem) Confirm Administered Dose 1 gm .ROUTE .STK-MED ONE Stop: 12/19/18 05:24 Last Admin: 12/19/18 05:35 Dose: 1 gm Meropenem/Sodium Chloride (Meropenem) 1 gm IV ONETIME ONE Stop: 12/18/18 20:01 Last Admin: 12/18/18 20:20 Dose: 1 gm Pharmacy Consult (Consult To Pharmacy) 1 each .XX ASDIRECTED [facility] - Problem List & Annotations (1) Multifocal pneumonia SNOMED Code(s): 871977357 Code(s): J18.9 - PNEUMONIA, UNSPECIFIED ORGANISM Status: Acute Priority: High Current Visit: Yes (2) Hypoxia SNOMED Code(s): 463836695 Code(s): R09.02 - HYPOXEMIA Status: Acute Priority: High Current Visit : Yes Annotation/Comment:: Worsening (3) Glioblastoma multiforme of brain SNOMED Code(s): 734756792 Code(s): C71.9 - MALIGNANT NEOPLASM OF BRAIN, UNSPECIFIED Status: Chronic Priority: High Current Visit: Yes (4) History of craniotomy SNOMED Code(s): 750947599, 460281682 Code(s): Z98.890 - OTHER SPECIFIED POSTPROCEDURAL STATES Status: Chronic Priority: Medium Current Visit: No (5) Cephalgia SNOMED Code(s): 54663695 Code(s): R51 - HEADACHE Status: Chronic Priority: Medium Current Visit : No Qualifiers: Headache type: other headache syndrome Qualified Code(s): G44.89 - Other headache syndrome - My Orders Last 24 Hours: My Active Orders 12/22/18 12:10 Lidocaine/Prilocaine [EMLA Crm] See Dose Instructions TOP ASDIRECTED PRN
[2018-12-22] MEDS: amLODIPine 5 MG Tab PO SCH (08:43)
[2018-12-22] MEDS: Levothyroxine 125 MCG Tab PO SCH (08:43)
[2018-12-22] MEDS: Levofloxacin/Dextrose 5%-Water 750 MG in Premix Bag 1 BAG IV SCH (08:46)
[2018-12-22] MEDS ORDERED: Lidocaine/Prilocaine 2.5-2.5% Crm 30 GM Tube TOP PRN (12:10)
[2018-12-22] MEDS: Nortriptyline 10 MG Cap PO SCH (20:42)
[2018-12-23] MEDS: Meropenem Premix 1 GM in Premix Bag 1 BAG IV SCH ×2 (03:54→11:51)
[2018-12-23] MEDS: Albuterol/Ipratropium 3.0-0.5 MG/3 ML Neb Soln NEB PRN (06:03)
[2018-12-23] MEDS: Dexamethasone 4 MG Tab PO SCH (06:26)
[2018-12-23] MEDS: Enoxaparin 40 MG/0.4 ML Syringe SUBCUT SCH (06:27)
[2018-12-23] MEDS: Omeprazole 20 MG Cap.CR PO SCH (06:30)
[2018-12-23 07:15] LABS: CHLORIDE,CL 102 mmol/L (98-107); SODIUM,NA 142 mmol/L (136-145)
[2018-12-23 07:45] VITALS: BP 120/79
[2018-12-23] MEDS: Levothyroxine 125 MCG Tab PO SCH (08:19)
[2018-12-23] MEDS: amLODIPine 5 MG Tab PO SCH (08:19)
[2018-12-23] MEDS: Levofloxacin/Dextrose 5%-Water 750 MG in Premix Bag 1 BAG IV SCH (08:23)
--- NOTE | 2018-12-23 10:20 | PCM.DCSUM1 ---
<Harvey Stringer - Last Filed: 12/24/18 09:54> Discharge Summary - Hospital Course Free Text/Narrative:: 48 y/o female with history of astrocytoma s/p right frontal resection with recent new recurrence of glioblastoma who presented to the ER complaining of worsening shortness of breath. CT chest was negative for pulmonary embolism, however, it did show multifocal infiltrates. She was admitted for pneumonia and started on Meropenem. Levaquin was subsequently added to cover for atypical pneumonia. Her symptoms improved, however, she continued to require 3 L O2 to maintain saturation above 90%. During the hospitalization, her shortness of breath improved and she was feeling better but still requiring supplemental O2. She was discharged home on home oxygen at 3 L O2 NC and Levaquin 750 mg PO daily for 5 days. She was instructed to follow-up with her PCP. - Discharge Data Discharge Date: 12/23/18 Discharge Disposition: Home, Self-Care 01 Condition: Stable - Patient Instructions Diet: Regular Diet as Tolerated Activity: As Tolerated Notify Provider of: Fever, Increased Pain, Swelling and Redness, Nausea and/or Vomiting - Discharge Plan *PRESCRIPTION DRUG MONITORING PROGRAM REVIEWED*: Not Applicable *COPY OF PRESCRIPTION DRUG MONITORING REPORT IN PATIENT TANG: Not Applicable Prescriptions/Med Rec: levoFLOXacin [Levaquin] 750 mg PO DAILY 5 Days #5 tab Home Medications: Home Meds Levothyroxine 125 mcg PO DAILY 11/09/13 [History] amLODIPine [Norvasc] 5 mg PO DAILY 11/09/13 [History] Omeprazole Magnesium [Prilosec Otc] 20 mg PO DAILY 02/14/16 [History] Nortriptyline 20 mg PO BEDTIME 08/21/17 [History] LORazepam 0.5 mg PO Q8H PRN 12/18/18 [History] dexAMETHasone [Dexamethasone] 2 mg PO Q24H 12/18/18 [History] oxyCODONE 5 mg PO ASDIRECTED 12/18/18 [History] levoFLOXacin [Levaquin] 750 mg PO DAILY 5 Days #5 tab 12/23/18 [Rx] Patient Handouts: Hypoxia, Home Oxygen Use, Adult, Levofloxacin tablets, Community-Acquired Pneumonia, Adult, [id number] Referrals: [facility] [Outside] Richie Cuba MD [Physician] - 12/31/18 2:00 pm - Discharge Summary/Plan Comment DC Time >30 min.: No - Patient Data Vitals - Most Recent: Last Vital Signs Temp 37.0 C 12/23/18 07:44 Pulse 109 H 12/23/18 07:44 Resp 18 12/23/18 07:44 BP 120/79 12/23/18 08:19 Pulse Ox 91 L 12/23/18 07:44 Weight - Most Recent: 132.251 kg I&O - Last 24 hours: Intake & Output 12/22/18 12/23/18 12/23/18 22:59 06:59 14:59 Intake Total 950 770 150 Output Total 1350 600 Balance -400 170 150 Lab Results - Last 24 hrs: Laboratory Results - last 24 hr 12/23/18 12/23/18 Range/Units 06:38 06:38 WBC 10.08 (4.0-11.0) K/uL RBC 4.78 (4.30-5.90) M/uL Hgb 14.6 (12.0-16.0) g/dL Hct 46.1 H (36.0-46.0) % MCV 96.4 (80.0-98.0) fL MCH 30.5 (27.0-32.0) pg MCHC 31.7 (31.0-37.0) g/dL RDW Std Deviation 48.8 (28.0-62.0) fl RDW Coeff of Amanda 14 (11.0-15.0) % Plt Count 343 (150-400) K/uL MPV 9.40 (7.40-12.00) fL Neut % (Auto) 82.3 H (48.0-80.0) % Lymph % (Auto) 11.7 L (16.0-40.0) % [place] % (Auto) 5.1 (0.0-15.0) % Eos % (Auto) 0.8 (0.0-7.0) % Baso % (Auto) 0.1 (0.0-1.5) % Neut # (Auto) 8.3 H (1.4-5.7) K/uL Lymph # (Auto) 1.2 (0.6-2.4) K/uL [place] # (Auto) 0.5 (0.0-0.8) K/uL Eos # (Auto) 0.1 (0.0-0.7) K/uL Baso # (Auto) 0.0 (0.0-0.1) K/uL Nucleated RBC % 0.0 /100WBC Nucleated RBCs # 0 K/uL Sodium 142 (136-145) mmol/L Potassium 4.3 (3.5-5.1) mmol/L Chloride 102 (98-107) mmol/L Carbon Dioxide 33.2 H (21.0-32.0) mmol/L BUN 14 (7.0-18.0) mg/dL Creatinine 0.9 (0.6-1.0) mg/dL Est Cr Clr Drug Dosing 87.30 mL/min Estimated GFR (MDRD) > 60.0 ml/min Glucose 103 (74-106) mg/dL Calcium 9.8 (8.5-10.1) mg/dL [place] Results - Last 24 hrs: Microbiology 12/18/18 18:05 Aerobic Blood Culture - Preliminary Blood - Venous - Lab Draw NO GROWTH AFTER 4 DAYS Anaerobic Blood Culture - Preliminary NO GROWTH AFTER 4 DAYS 12/18/18 17:57 Aerobic Blood Culture - Preliminary Blood - Venous NO GROWTH AFTER 4 DAYS Anaerobic Blood Culture - Preliminary NO GROWTH AFTER 4 DAYS Med Orders - Current: Current Medications Acetaminophen (Tylenol) 650 mg PO Q6H PRN PRN Reason: Pain (mild 1-3) Albuterol/Ipratropium (Duoneb 3.0-0.5 Mg/3 Ml) 3 ml NEB Q4HRRT PRN PRN Reason: Shortness of Breath Last Admin: 12/23/18 06:03 Dose: 3 ml Amlodipine Besylate (Norvasc) 5 mg PO DAILY [facility] Last Admin: 12/23/18 08:19 Dose: 5 mg Dexamethasone (Dexamethasone) 2 mg PO Q24H [facility] Last Admin: 12/23/18 06:26 Dose: 2 mg Docusate Sodium (Colace) 100 mg PO BID PRN PRN Reason: Constipation Enoxaparin Sodium (Lovenox) 40 mg SUBCUT Q24H [facility] Last Admin: 12/23/18 06:27 Dose: 40 mg Meropenem/Sodium Chloride 1 gm (/ Premix) 50 mls @ 100 mls/hr IV Q8H [facility] Last Admin: 12/23/18 03:54 Dose: 100 mls/hr Levofloxacin/Dextrose 750 mg/ (Premix) 150 mls @ 100 mls/hr IV Q24H [facility] Last Admin: 12/23/18 08:23 Dose: 100 mls/hr Levothyroxine Sodium (Levothyroxine) 125 mcg PO DAILY [facility] Last Admin: 12/23/18 08:19 Dose: 125 mcg Lidocaine/Prilocaine (Emla Crm) 0 gm TOP ASDIRECTED PRN PRN Reason: Peripheral IV insertion Last Admin: 12/22/18 12:37 Dose: 1 applic Lorazepam (Ativan) 0.5 mg PO Q8H PRN PRN Reason: Anxiety Nortriptyline HCl (Nortriptyline) 20 mg PO BEDTIME [facility] Last Admin: 12/22/18 20:42 Dose: 20 mg Omeprazole (Omeprazole) 20 mg PO ACBREAKFAST [facility] Last Admin: 12/23/18 06:30 Dose: 20 mg Oxycodone HCl (Oxycodone) 5 mg PO Q4H PRN PRN Reason: Pain (moderate 4-6) Last Admin: 12/21/18 15:16 Dose: 5 mg Temazepam (Restoril) 15 mg PO BEDTIME PRN PRN Reason: Insomnia Last Admin: 12/18/18 23:18 Dose: 15 mg Discontinued Medications Albuterol/Ipratropium (Duoneb 3.0-0.5 Mg/3 Ml) 3 ml NEB ONETIME ONE Stop: 12/18/18 17:43 Last Admin: 12/18/18 18:03 Dose: 3 ml Furosemide (Lasix) 20 mg IVPUSH NOW ONE Stop: 12/21/18 10:08 Last Admin: 12/21/18 10:35 Dose: 20 mg Sodium Chloride (Normal Saline) 1,000 mls @ 999 mls/hr IV BOLUS ONE Stop: 12/18/18 18:41 Last Admin: 12/18/18 18:14 Dose: 999 mls/hr Meropenem 1 gm/ Sodium (Chloride) 100 mls @ 200 mls/hr IV ONETIME ONE Stop: 12/18/18 20:06 Last Admin: 12/18/18 20:20 Dose: Not Given Sodium Chloride (Normal Saline) 1,000 mls @ 75 mls/hr IV ASDIRECTED [facility] Last Admin: 12/21/18 02:08 Dose: 75 mls/hr Meropenem 1 gm/ Sodium (Chloride) 100 mls @ 200 mls/hr IV Q8H [facility] Meropenem 1 gm/ Sodium (Chloride) 100 mls @ 200 mls/hr IV Q8H [facility] Last Admin: 12/19/18 04:30 Dose: 200 mls/hr Sodium Chloride (Normal Saline) Confirm Administered Dose 50 mls @ as directed .ROUTE .STK-MED ONE Stop: 12/19/18 05:26 Last Admin: 12/19/18 05:35 Dose: 100 mls/hr Meropenem 1 gm/ Sodium (Chloride) 100 mls @ 200 mls/hr IV Q8H [facility] Last Admin: 12/19/18 11:58 Dose: 200 mls/hr Iopamidol (Isovue Multipack-370 (76%)) 50 ml IVPUSH ONETIME STA Stop: 12/18/18 18:36 Last Admin: 12/18/18 18:35 Dose: 50 ml Meropenem (Merrem) Confirm Administered Dose 1 gm .ROUTE .STK-MED ONE Stop: 12/19/18 05:24 Last Admin: 12/19/18 05:35 Dose: 1 gm Meropenem/Sodium Chloride (Meropenem) 1 gm IV ONETIME ONE Stop: 12/18/18 20:01 Last Admin: 12/18/18 20:20 Dose: 1 gm Pharmacy Consult (Consult To Pharmacy) 1 each .XX ASDIRECTED [facility] <Moy Wiggins - Last Filed: 12/24/18 16:27> Discharge Summary - Hospital Course Free Text/Narrative:: I have examined the patient independently of certified medical technician assistant, Dr. Nestor MD. I have discussed the case with him. I have reviewed and agree with the examination and plan as outlined by him. Please see orders. - Discharge Diagnosis/Problem(s) (1) Multifocal pneumonia SNOMED Code(s): 883668202 ICD Code: J18.9 - PNEUMONIA, UNSPECIFIED ORGANISM Status: Acute Priority : High (2) Hypoxia SNOMED Code(s): 915813561 ICD Code: R09.02 - HYPOXEMIA Status: Acute Priority: High Problem Details: Worsening (3) Glioblastoma multiforme of brain SNOMED Code(s): 923834195 ICD Code: C71.9 - MALIGNANT NEOPLASM OF BRAIN, UNSPECIFIED Status: Chronic Priority: High (4) History of craniotomy SNOMED Code(s): 283464631, 748325411 ICD Code: Z98.890 - OTHER SPECIFIED POSTPROCEDURAL STATES Status: Chronic Priority: Medium (5) Cephalgia SNOMED Code(s): 62367325 ICD Code: R51 - HEADACHE Status: Chronic Priority: Medium Qualifiers: Headache type: other headache syndrome Qualified Code(s): G44.89 - Other headache syndrome - Patient Data Vitals - Most Recent: Last Vital Signs Temp 37.0 C 12/23/18 07:44 Pulse 109 H 12/23/18 07:44 Resp 18 12/23/18 07:44 BP 120/79 12/23/18 08:19 Pulse Ox 91 L 12/23/18 07:44 [place] Results - Last 24 hrs: Microbiology 12/18/18 18:05 Aerobic Blood Culture - Final Blood - Venous - Lab Draw NO GROWTH AFTER 5 DAYS Anaerobic Blood Culture - Final NO GROWTH AFTER 5 DAYS 12/18/18 17:57 Aerobic Blood Culture - Final Blood - Venous NO GROWTH AFTER 5 DAYS Anaerobic Blood Culture - Final NO GROWTH AFTER 5 DAYS Med Orders - Current: Current Medications Discontinued Medications Acetaminophen (Tylenol) 650 mg PO Q6H PRN PRN Reason: Pain (mild 1-3) Albuterol/Ipratropium (Duoneb 3.0-0.5 Mg/3 Ml) 3 ml NEB ONETIME ONE Stop: 12/18/18 17:43 Last Admin: 12/18/18 18:03 Dose: 3 ml Albuterol/Ipratropium (Duoneb 3.0-0.5 Mg/3 Ml) 3 ml NEB Q4HRRT PRN PRN Reason: Shortness of Breath Last Admin: 12/23/18 06:03 Dose: 3 ml Amlodipine Besylate (Norvasc) 5 mg PO DAILY [facility] Last Admin: 12/23/18 08:19 Dose: 5 mg Dexamethasone (Dexamethasone) 2 mg PO Q24H [facility] Last Admin: 12/23/18 06:26 Dose: 2 mg Docusate Sodium (Colace) 100 mg PO BID PRN PRN Reason: Constipation Enoxaparin Sodium (Lovenox) 40 mg SUBCUT Q24H [facility] Last Admin: 12/23/18 06:27 Dose: 40 mg Furosemide (Lasix) 20 mg IVPUSH NOW ONE Stop: 12/21/18 10:08 Last Admin: 12/21/18 10:35 Dose: 20 mg Sodium Chloride (Normal Saline) 1,000 mls @ 999 mls/hr IV BOLUS ONE Stop: 12/18/18 18:41 Last Admin: 12/18/18 18:14 Dose: 999 mls/hr Meropenem 1 gm/ Sodium (Chloride) 100 mls @ 200 mls/hr IV ONETIME ONE Stop: 12/18/18 20:06 Last Admin: 12/18/18 20:20 Dose: Not Given Sodium Chloride (Normal Saline) 1,000 mls @ 75 mls/hr IV ASDIRECTED [facility] Last Admin: 12/21/18 02:08 Dose: 75 mls/hr Meropenem 1 gm/ Sodium (Chloride) 100 mls @ 200 mls/hr IV Q8H [facility] Meropenem 1 gm/ Sodium (Chloride) 100 mls @ 200 mls/hr IV Q8H [facility] Last Admin: 12/19/18 04:30 Dose: 200 mls/hr Sodium Chloride (Normal Saline) Confirm Administered Dose 50 mls @ as directed .ROUTE .STK-MED ONE Stop: 12/19/18 05:26 Last Admin: 12/19/18 05:35 Dose: 100 mls/hr Meropenem 1 gm/ Sodium (Chloride) 100 mls @ 200 mls/hr IV Q8H [facility] Last Admin: 12/19/18 11:58 Dose: 200 mls/hr Meropenem/Sodium Chloride 1 gm (/ Premix) 50 mls @ 100 mls/hr IV Q8H [facility] Last Admin: 12/23/18 11:51 Dose: 100 mls/hr Levofloxacin/Dextrose 750 mg/ (Premix) 150 mls @ 100 mls/hr IV Q24H [facility] Last Admin: 12/23/18 08:23 Dose: 100 mls/hr Iopamidol (Isovue Multipack-370 (76%)) 50 ml IVPUSH ONETIME STA Stop: 12/18/18 18:36 Last Admin: 12/18/18 18:35 Dose: 50 ml Levothyroxine Sodium (Levothyroxine) 125 mcg PO DAILY [facility] Last Admin: 12/23/18 08:19 Dose: 125 mcg Lidocaine/Prilocaine (Emla Crm) 0 gm TOP ASDIRECTED PRN PRN Reason: Peripheral IV insertion Last Admin: 12/22/18 12:37 Dose: 1 applic Lorazepam (Ativan) 0.5 mg PO Q8H PRN PRN Reason: Anxiety Meropenem (Merrem) Confirm Administered Dose 1 gm .ROUTE .STK-MED ONE Stop: 12/19/18 05:24 Last Admin: 12/19/18 05:35 Dose: 1 gm Meropenem/Sodium Chloride (Meropenem) 1 gm IV ONETIME ONE Stop: 12/18/18 20:01 Last Admin: 12/18/18 20:20 Dose: 1 gm Nortriptyline HCl (Nortriptyline) 20 mg PO BEDTIME [facility] Last Admin: 12/22/18 20:42 Dose: 20 mg Omeprazole (Omeprazole) 20 mg PO ACBREAKFAST [facility] Last Admin: 12/23/18 06:30 Dose: 20 mg Oxycodone HCl (Oxycodone) 5 mg PO Q4H PRN PRN Reason: Pain (moderate 4-6) Last Admin: 12/21/18 15:16 Dose: 5 mg Pharmacy Consult (Consult To Pharmacy) 1 each .XX ASDIRECTED [facility] Temazepam (Restoril) 15 mg PO BEDTIME PRN PRN Reason: Insomnia Last Admin: 12/18/18 23:18 Dose: 15 mg
== END 2018-12-23 13:54 | disposition home or self-care (01) | DRG 139 ==
LOC: MW.ED 17:08 → MW.MS 19:38 → OBSVTOIN 12-22 09:45 → MW.MS 12-22 09:46
PROVIDERS: ADMIT Internal Medicine; ATTEND Internal Medicine
DX: J18.9 Pneumonia, unspecified organism (principal); E78.00 Pure hypercholesterolemia, unspecified; I10 Essential (primary) hypertension; K21.9 Gastro-esophageal reflux disease without esophagitis; G43.909 Migraine, unspecified, not intractable, without status migrainosus; E03.9 Hypothyroidism, unspecified; E66.9 Obesity, unspecified; G44.89 Other headache syndrome; C71.9 Malignant neoplasm of brain, unspecified; D89.9 Disorder involving the immune mechanism, unspecified; R41.3 Other amnesia; Z98.890 Other specified postprocedural states; Z92.3 Personal history of irradiation; Z90.710 Acquired absence of both cervix and uterus; Z87.891 Personal history of nicotine dependence; Z79.899 Other long term (current) drug therapy; Z92.21 Personal history of antineoplastic chemotherapy; Z68.41 Body mass index [BMI] 40.0-44.9, adult
CPT/HCPCS: 36415; 36600; 71045; 71045-26; 71275; 71275-26; 80048; 80053; 81003; 82803; 83605; 84484; 85025; 87040; 93005; 94640; 94667; 96361; 96365; 96366; 96372; 96375; 96376; 99285-25; A9270-GY; G0378; J1650; J1940; J1956; J2185; J7030; J7040; J7050; J7620-GY; J8540; Q9967

== ENCOUNTER 2018-12-28 14:24 | Emergency (ER) | payer BC ==
[2018-12-28] MEDS ORDERED: Sodium Chloride 0.9% 1,000 ML IV ONE (14:29)
[2018-12-28] MEDS ORDERED: Hydrocortisone Sodium Succinate 100 MG/2 ML SDV IVPUSH ONE (14:36)
[2018-12-28] MEDS ORDERED: Albuterol/Ipratropium 3.0-0.5 MG/3 ML Neb Soln NEB ONE (14:37)
--- NOTE | 2018-12-28 15:06 | CR ---
Indication: Shortness of breath. Technique: PA and lateral views the chest were obtained. Comparison: December 21, 2018. Findings: Diffuse bilateral infiltrates are identified. These have increased. Heart is normal in size. No pleural effusion or pneumothorax is identified. Impression: Increasing bilateral infiltrates Dictated by Nancy Guerrero MD @ Dec 28 2018 3:02PM Signed by Dr. Nancy Guerrero @ Dec 28 2018 3:06PM
[2018-12-28] MEDS ORDERED: Piperacillin/Tazobactam 3.375 GM in Sodium Chloride 0.9% 50 ML IV ONE (15:08)
[2018-12-28 15:13] LABS: CHLORIDE,CL 101 mmol/L (98-107); SODIUM,NA 142 mmol/L (136-145)
--- NOTE | 2018-12-28 15:16 | EDM.PDOC ---
ED HPI GENERAL MEDICAL PROBLEM - General Chief Complaint: Respiratory Problem Stated Complaint: TROUBLE BREATHING Time Seen by Provider: 12/28/18 14:25 Source of Information: Reports: Patient History Limitations: Reports: No Limitations - History of Present Illness INITIAL COMMENTS - FREE TEXT/NARRATIVE: HISTORY AND PHYSICAL: History of present illness: Patient is a 48-year-old female who presents to the ED today in acute respiratory distress. Patient was recently admitted to our hospital on 12/18/18 for pneumonia and was discharged on 12/22/18. Patient was sent home with 4 L of oxygen and patient states she's been using this but despite this has become more short of breath. Patient was also discharged with antibiotics and incentive spirometry. Patient states she's been using these accordingly but is had increased shortness of shortness of breath over the past 2 days. Patient has a history of glioblastoma brain cancer and is currently receiving chemotherapy at [facility]. Patient denies fever, chills, chest pain, shortness of breath, or cough. Denies headache, neck stiff ness, change in vision, syncope, or near syncope. Denies nausea, vomiting, abdominal pain, diarrhea, constipation, or dysuria. Has not noted any blood in urine or stool. Patient has been eating and drinking appropriately. Review of systems: As per history of present illness and below otherwise all systems reviewed and negative. Past medical history: As per history of present illness and as reviewed below otherwise noncontributory. Surgical history: As per history of present illness and as reviewed below otherwise noncontributory. Social history: See social history for further information Family history: As per history of present illness and as reviewed below otherwise noncontributory. Physical exam: Physical exam is limited due to patient's difficulty in breathing. General: Patient is alert, oriented, and acute respiratory distress. Patient should for it on exam table speaking one-word sentences. HEENT: Atraumatic, normocephalic, pupils equal and reactive bilaterally, negative for conjunctival pallor or scleral icterus, mucous membranes moist, TMs normal bilaterally, throat clear, neck supple, nontender, trachea midline. No drooling or trismus noted. No meningeal signs. No hot potato voice noted. Lungs: Diffuse and coarse crackles to auscultation throughout all lung mariee, breath sounds equal bilaterally, chest nontender. Heart: S1S2, regular rate and rhythm without overt murmur Abdomen: Soft, nondistended, nontender. Negative for masses or hepatosplenomegaly. Negative for costovertebral tenderness. Pelvis: Stable nontender. Genitourinary: Deferred. Rectal: Deferred. Skin: Intact, warm, dry. No lesions or rashes noted. Extremities: Atraumatic, negative for cords or calf pain. Neurovascular unremarkable. Neuro: Awake, alert, oriented. Cranial nerves II through XII unremarkable. Cerebellum unremarkable. Motor and sensory unremarkable throughout. Exam nonfocal. Notes: Dr. Espinoza directly involved in patient care. Upon arrival, patient's O2 sat less than 50% on room air. Patient placed on 15 L on a nonrebreather and after a few minutes standing 96%. Patient appears much more comfortable and now speaking full sentences. We will place patient on BiPAP at this time. Patient tolerating bipap well, maintaining 99% O2. Dr. Addison [facility] consult on patient and will transfer via EMS. Voices understanding and is agreeable to plan of care. Denies any further questions or concerns at this time. Diagnostics: CBC, CMP, UA, EKG, BNP, troponin, chest x-ray, PT/INR, lactate, blood cultures 2 Therapeutics: Vancomycin, Zosyn, Hydrocortisone, Saline, DuoNeb, Ativan Impression: Dyspnea Pneumonia Glioblastoma Immunosuppression Plan: 1. Transfer to Dr. Addison on [facility] and my not via EMS Definitive disposition and diagnosis as appropriate pending reevaluation and review of above. Head Pain Score (Numeric/FACES): 5 - Related Data Allergies Allergy/AdvReac Type Severity Reaction Status Date / Time adhesive tape Allergy Irritabilit Verified 12/28/18 14:36 y Home Meds: Home Meds Levothyroxine 125 mcg PO DAILY 11/09/13 [History] amLODIPine [Norvasc] 5 mg PO DAILY 11/09/13 [History] Omeprazole Magnesium [Prilosec Otc] 20 mg PO DAILY 02/14/16 [History] Nortriptyline 20 mg PO BEDTIME 08/21/17 [History] LORazepam 0.5 mg PO Q8H PRN 12/18/18 [History] dexAMETHasone [Dexamethasone] 2 mg PO Q24H 12/18/18 [History] oxyCODONE 5 mg PO ASDIRECTED 08/15/19 [History] levoFLOXacin [Levaquin] 750 mg PO DAILY 5 Days #5 tab 12/23/18 [Rx] Past Medical History HEENT History: Reports: None Cardiovascular History: Reports: Arrhythmia, High Cholesterol, Hypertension Respiratory History: Reports: Pneumonia, Recurrent Gastrointestinal History: Reports: GERD, Irritable Bowel Syndrome Genitourinary History: Reports: Other (See Below) Other Genitourinary History: has three funcitoning kidneys FRAMEWORK DEVELOPER History: Reports: Fibroids, Other FRAMEWORK DEVELOPER History: Musculoskeletal History: Reports: None Neurological History: Reports: Migraines Other Neuro History: Brain tumor with removal and [id number] finished chronic steroids. Psychiatric History: Reports: None Endocrine/Metabolic History: Reports: Hypothyroidism, Obesity/BMI 30+ Hematologic History: Reports: Anesthesia Reaction Immunologic History: Reports: None Oncologic (Cancer) History: Reports: Brain Dermatologic History: Reports: None - Infectious Disease History Infectious Disease History: Reports: Chicken Pox - Past Surgical History Head Surgeries/Procedures: Reports: Other (See Below) HEENT Surgical History: Reports: Oral Surgery, Tonsillectomy Cardiovascular Surgical History: Reports: None Respiratory Surgical History: Reports: None GI Surgical History: Reports: None Female Surgical History: Reports: Section, Cervical Conization, Hysterectomy Endocrine Surgical History: Reports: None Neurological Surgical History: Reports: None Musculoskeletal Surgical History: Reports: None Oncologic Surgical History: Reports: None - History Comment History Comment: etoh "weekly" Social & Family History - Family History Family Medical History: Noncontributory - Tobacco Use Smoking Status *Q: Former Smoker Years of Tobacco use: 20 Packs/Tins Daily: 1 Used Tobacco, but Quit: Yes Month/Year Tobacco Last Used: 2010 - Caffeine Use Caffeine Use: Reports: None Other Caffeine Use: 2 cups daily Caffeine Use Comment: two coffees daily - Living Situation & Occupation Living situation: Reports: , with Family Occupation: Unemployed ED ROS GENERAL - Review of Systems Review Of Systems: ROS reveals no pertinent complaints other than HPI. ED EXAM, GENERAL - Physical Exam Exam: See Below (See dictation) Course - Vital Signs Last Recorded V/S: Last Vital Signs Temp 35.9 C 12/28/18 14:38 Pulse 121 H 12/28/18 15:16 Resp 28 H 12/28/18 15:16 BP 108/74 12/28/18 15:16 Pulse Ox 91 L 12/28/18 15:16 - Orders/Labs/Meds Orders: Active Orders 24 hr Category Date Time Status Cardiac Monitoring [RC] . DIRECTED Care 12/28/18 14:29 Active EKG Documentation Completion [RC] STAT Care 12/28/18 14:29 Active Oxygen Therapy [RC] ASDIRECTED Care 12/28/18 14:29 Active RT Aerosol Therapy [RC] ASDIRECTED Care 12/28/18 14:37 Active CULTURE BLOOD [BC] Stat Lab 12/28/18 14:28 Received CULTURE BLOOD [BC] Stat Lab 12/28/18 14:53 Received UA RFX STERLING AND CULT IF INDIC [URIN] Stat Lab 12/28/18 14:29 Ordered Blood Culture x2 Reflex Set [OM.PC] Stat Oth 12/28/18 14:30 Ordered Labs: Laboratory Tests 12/28/18 12/28/18 12/28/18 Range/Units 14:28 14:28 14:28 WBC 11.67 H (4.0-11.0) K/uL RBC 4.83 (4.30-5.90) M/uL Hgb 14.6 (12.0-16.0) g/dL Hct 46.1 H (36.0-46.0) % MCV 95.4 (80.0-98.0) fL MCH 30.2 (27.0-32.0) pg MCHC 31.7 (31.0-37.0) g/dL RDW Std Deviation 47.1 (28.0-62.0) fl RDW Coeff of Amanda 14 (11.0-15.0) % Plt Count 432 H (150-400) K/uL MPV 9.40 (7.40-12.00) fL Neut % (Auto) 87.0 H (48.0-80.0) % Lymph % (Auto) 8.1 L (16.0-40.0) % [place] % (Auto) 3.8 (0.0-15.0) % Eos % (Auto) 0.9 (0.0-7.0) % Baso % (Auto) 0.2 (0.0-1.5) % Neut # (Auto) 10.2 H (1.4-5.7) K/uL Lymph # (Auto) 0.9 (0.6-2.4) K/uL [place] # (Auto) 0.4 (0.0-0.8) K/uL Eos # (Auto) 0.1 (0.0-0.7) K/uL Baso # (Auto) 0.0 (0.0-0.1) K/uL Nucleated RBC % 0.0 /100WBC Nucleated RBCs # 0 K/uL INR 0.92 ABG pH (7.35-7.45) ABG pCO2 (35-45) mmHG ABG pO2 (75-100) mmHG ABG HCO3 (22-26) mEq/L ABG Total CO2 ABG Base Excess (-2.0-2.0) Lactate (0.20-2.00) mmol/L Sodium 142 (136-145) mmol/L Potassium 3.6 (3.5-5.1) mmol/L Chloride 101 (98-107) mmol/L Carbon Dioxide 28.0 (21.0-32.0) mmol/L BUN 13 (7.0-18.0) mg/dL Creatinine 0.9 (0.6-1.0) mg/dL Est Cr Clr Drug Dosing 87.30 mL/min Estimated GFR (MDRD) > 60.0 ml/min Glucose 132 H (74-106) mg/dL Calcium 9.3 (8.5-10.1) mg/dL Total Bilirubin 0.5 (0.2-1.0) mg/dL AST 32 (15-37) IU/L ALT 31 (14-63) IU/L Alkaline Phosphatase 95 (46-116) U/L Troponin I < 0.050 (0.000-0.056) ng/mL B-Natriuretic Peptide (<100) PG/ML Total Protein 7.0 (6.4-8.2) g/dL Albumin 3.1 L (3.4-5.0) g/dL Globulin 3.9 (2.6-4.0) g/dL Albumin/Globulin Ratio 0.8 L (0.9-1.6) 12/28/18 12/28/18 12/28/18 Range/Units 14:28 14:31 14:53 WBC (4.0-11.0) K/uL RBC (4.30-5.90) M/uL Hgb (12.0-16.0) g/dL Hct (36.0-46.0) % MCV (80.0-98.0) fL MCH (27.0-32.0) pg MCHC (31.0-37.0) g/dL RDW Std Deviation (28.0-62.0) fl RDW Coeff of Amanda (11.0-15.0) % Plt Count (150-400) K/uL MPV (7.40-12.00) fL Neut % (Auto) (48.0-80.0) % Lymph % (Auto) (16.0-40.0) % [place] % (Auto) (0.0-15.0) % Eos % (Auto) (0.0-7.0) % Baso % (Auto) (0.0-1.5) % Neut # (Auto) (1.4-5.7) K/uL Lymph # (Auto) (0.6-2.4) K/uL [place] # (Auto) (0.0-0.8) K/uL Eos # (Auto) (0.0-0.7) K/uL Baso # (Auto) (0.0-0.1) K/uL Nucleated RBC % /100WBC Nucleated RBCs # K/uL INR ABG pH 7.402 (7.35-7.45) ABG pCO2 43 (35-45) mmHG ABG pO2 67 L (75-100) mmHG ABG HCO3 27 H (22-26) mEq/L ABG Total CO2 23.9 ABG Base Excess 1.6 (-2.0-2.0) Lactate 4.0 H (0.20-2.00) mmol/L Sodium (136-145) mmol/L Potassium (3.5-5.1) mmol/L Chloride (98-107) mmol/L Carbon Dioxide (21.0-32.0) mmol/L BUN (7.0-18.0) mg/dL Creatinine (0.6-1.0) mg/dL Est Cr Clr Drug Dosing mL/min Estimated GFR (MDRD) ml/min Glucose (74-106) mg/dL Calcium (8.5-10.1) mg/dL Total Bilirubin (0.2-1.0) mg/dL AST (15-37) IU/L ALT (14-63) IU/L Alkaline Phosphatase (46-116) U/L Troponin I (0.000-0.056) ng/mL B-Natriuretic Peptide 28 (<100) PG/ML Total Protein (6.4-8.2) g/dL Albumin (3.4-5.0) g/dL Globulin (2.6-4.0) g/dL Albumin/Globulin Ratio (0.9-1.6) Meds: Medications Discontinued Medications Generic Name Dose Route Start Last Admin Trade Name Freq PRN Reason Stop Dose Admin Albuterol/Ipratropium 3 ml 12/28/18 14:37 12/28/18 14:46 Duoneb 3.0-0.5 Mg/3 Ml NEB 12/28/18 14:38 3 ml ONETIME ONE Administration Hydrocortisone Sodium Succinate 100 mg 12/28/18 14:36 12/28/18 14:47 Solu-Cortef IVPUSH 12/28/18 14:37 100 mg ONETIME ONE Administration Sodium Chloride 1,000 mls @ 999 mls/hr 12/28/18 14:29 12/28/18 14:37 Normal Saline IV 12/28/18 15:29 999 mls/hr BOLUS ONE Administration Vancomycin HCl 1 gm/ Sodium 250 mls @ 166 mls/hr 12/28/18 15:08 12/28/18 16: 02 Chloride IV 12/28/18 16:38 166 mls/hr ONETIME ONE Administration Piperacillin Sod/Tazobactam 50 mls @ 100 mls/hr 12/28/18 15:08 12/28/18 15:19 Sod 3.375 gm/ Sodium Chloride IV 12/28/18 15:37 100 mls/hr ONETIME ONE Administration Lorazepam 1 mg 12/28/18 15:22 12/28/18 15:30 Ativan IVPUSH 12/28/18 15:23 1 mg ONETIME ONE Administration Departure - Departure Time of Disposition: 16:53 Disposition: DC/Tfer to [facility] 02 Clinical Impression: Acute respiratory distress, Glioblastoma, Immunocompromised Pneumonia Qualifiers: Pneumonia type: due to unspecified organism Laterality: bilateral Lung location : unspecified part of lung Qualified Code(s): J18.9 - Pneumonia, unspecified organism - Discharge Information - My Orders Last 24 Hours: My Active Orders 12/28/18 14:28 CULTURE BLOOD [BC] Stat 12/28/18 14:29 Cardiac Monitoring [RC] . DIRECTED EKG Documentation Completion [RC] STAT Oxygen Therapy [RC] ASDIRECTED UA RFX STERLING AND CULT IF INDIC [URIN] Stat 12/28/18 14:30 Blood Culture x2 Reflex Set [OM.PC] Stat 12/28/18 14:37 RT Aerosol Therapy [RC] ASDIRECTED 12/28/18 14:53 CULTURE BLOOD [BC] Stat - Assessment/Plan Last 24 Hours: My Active Orders 12/28/18 14:28 CULTURE BLOOD [BC] Stat 12/28/18 14:29 Cardiac Monitoring [RC] . DIRECTED EKG Documentation Completion [RC] STAT Oxygen Therapy [RC] ASDIRECTED UA RFX STERLING AND CULT IF INDIC [URIN] Stat 12/28/18 14:30 Blood Culture x2 Reflex Set [OM.PC] Stat 12/28/18 14:37 RT Aerosol Therapy [RC] ASDIRECTED 12/28/18 14:53 CULTURE BLOOD [BC] Stat
[2018-12-28] MEDS ORDERED: LORazepam 2 MG/ML SDV IVPUSH ONE (15:22)
[2018-12-28 17:44] VITALS: BP 147/103
== END 2018-12-28 19:20 ==
LOC: MW.ED 14:24
DX: J18.9 Pneumonia, unspecified organism (principal); R06.03 Acute respiratory distress; C71.9 Malignant neoplasm of brain, unspecified; D89.9 Disorder involving the immune mechanism, unspecified; I10 Essential (primary) hypertension; K21.9 Gastro-esophageal reflux disease without esophagitis; E03.9 Hypothyroidism, unspecified; E78.00 Pure hypercholesterolemia, unspecified; Z91.048 Other nonmedicinal substance allergy status; Z79.899 Other long term (current) drug therapy; Z87.891 Personal history of nicotine dependence
CPT/HCPCS: 36415; 36600; 71045; 80053; 82803; 83605; 83880; 84484; 85025; 85610; 87040; 93005; 94640; 94660; 96361; 96365; 96366; 96367; 96375; 99285; J1720; J2060; J2543; J3370; J7040; J7050; J7620-GY

== ENCOUNTER 2019-01-23 15:04 | Emergency (ER) | payer SELFPAY ==
--- NOTE | 2019-01-23 15:23 | EDM.PDOC ---
ED HPI GENERAL MEDICAL PROBLEM - General Chief Complaint: Head Injury Stated Complaint: SENT FROM STORY Time Seen by Provider: 01/23/19 15:18 Source of Information: Reports: Patient History Limitations: Reports: No Limitations - History of Present Illness INITIAL COMMENTS - FREE TEXT/NARRATIVE: History of present illness: []Patient was at [place] using the bathroom and it got extremely hot and she fell sliding down the wall, hitting her head and hurting her low back. Patient has a history of brain cancer and has been having more frequent falls lately. Review of systems: As per history of present illness and below otherwise all systems reviewed and negative. Past medical history: As per history of present illness and as reviewed below otherwise noncontributory. Surgical history: As per history of present illness and as reviewed below otherwise noncontributory. Social history: No reported history of drug or alcohol abuse. Family history: As per history of present illness and as reviewed below otherwise noncontributory. Physical exam: General: Well developed, well nourished in NAD HEENT: Healed scalp scar, normocephalic, pupils reactive, negative for conjunctival pallor or scleral icterus, mucous membranes moist, throat clear, neck supple, nontender, step-offs trachea midline. TMs clear no hemotympanum Lungs: Clear to auscultation, breath sounds equal bilaterally, chest nontender. Heart: S1S2, regular, negative for clicks, rubs, or JVD. Abdomen: NABS, Soft, nondistended, nontender. Negative for masses or hepatosplenomegaly. Negative for costovertebral tenderness. Pelvis: Stable nontender to palpation Genitourinary: Deferred. Rectal: Deferred. Extremities: Atraumatic, full range of motion hip is bilaterally and nontender negative for cords or calf pain. Neurovascular unremarkable. Neuro: Awake, alert, oriented. Cranial nerves II through XII unremarkable. Cerebellum unremarkable. Motor and sensory unremarkable throughout. Exam nonfocal. Skin:warm and dry Diagnostics: CBC, chemistry, CT head and Lumbar spine-nothing acute, associated degenerative changes on lumbar spine Therapeutics: None ED Course: Stable Impression: Fall Prescriptions: None Plan: Take meds as directed, follow up with your primary care physician, return to ER if symptoms worsen or change. Definitive disposition and diagnosis as appropriate pending reevaluation and review of above. pelvis Pain Score (Numeric/FACES): 4 - Related Data Allergies Allergy/AdvReac Type Severity Reaction Status Date / Time adhesive tape Allergy Irritabilit Verified 12/28/18 14:36 y Home Meds: Home Meds Levothyroxine 125 mcg PO DAILY 11/09/13 [History] amLODIPine [Norvasc] 5 mg PO DAILY 11/09/13 [History] Omeprazole Magnesium [Prilosec Otc] 20 mg PO DAILY 02/14/16 [History] Nortriptyline 20 mg PO BEDTIME 08/21/17 [History] LORazepam 0.5 mg PO Q8H PRN 12/18/18 [History] dexAMETHasone [Dexamethasone] 2 mg PO Q24H 12/18/18 [History] oxyCODONE 5 mg PO ASDIRECTED 12/18/18 [History] levoFLOXacin [Levaquin] 750 mg PO DAILY 5 Days #5 tab 12/23/18 [Rx] Past Medical History HEENT History: Reports: None Cardiovascular History: Reports: Arrhythmia, High Cholesterol, Hypertension Respiratory History: Reports: Pneumonia, Recurrent Gastrointestinal History: Reports: GERD, Irritable Bowel Syndrome Genitourinary History: Reports: Other (See Below) Other Genitourinary History: has three funcitoning kidneys PURCHASING/RECEIVING History: Reports: Fibroids, Other PURCHASING/RECEIVING History: Musculoskeletal History: Reports: None Neurological History: Reports: Migraines Other Neuro History: Brain tumor with removal and [id number] finished chronic steroids. Psychiatric History: Reports: None Endocrine/Metabolic History: Reports: Hypothyroidism, Obesity/BMI 30+ Hematologic History: Reports: Anesthesia Reaction Immunologic History: Reports: None Oncologic (Cancer) History: Reports: Brain Dermatologic History: Reports: None - Infectious Disease History Infectious Disease History: Reports: Chicken Pox - Past Surgical History Head Surgeries/Procedures: Reports: Other (See Below) HEENT Surgical History: Reports: Oral Surgery, Tonsillectomy Cardiovascular Surgical History: Reports: None Respiratory Surgical History: Reports: None GI Surgical History: Reports: None Female Surgical History: Reports: Section, Cervical Conization, Hysterectomy Endocrine Surgical History: Reports: None Neurological Surgical History: Reports: None Musculoskeletal Surgical History: Reports: None Oncologic Surgical History: Reports: None - History Comment History Comment: etoh "weekly" Social & Family History - Family History Family Medical History: Noncontributory - Caffeine Use Caffeine Use: Reports: None Other Caffeine Use: 2 cups daily Caffeine Use Comment: two coffees daily - Living Situation & Occupation Living situation: Reports: , with Family Occupation: Unemployed ED ROS GENERAL - Review of Systems Review Of Systems: See Below ED EXAM, HEAD INJURY - Physical Exam Exam: See Below Course - Vital Signs Last Recorded V/S: Last Vital Signs Temp 96.9 F 01/23/19 15:22 Pulse 91 01/23/19 15:22 Resp 16 01/23/19 15:22 BP 128/79 01/23/19 15:22 Pulse Ox 94 L 01/23/19 15:22 - Orders/Labs/Meds Labs: Laboratory Tests 01/23/19 01/23/19 Range/Units 15:34 15:34 WBC 8.03 (4.0-11.0) K/uL RBC 4.36 (4.30-5.90) M/uL Hgb 12.7 (12.0-16.0) g/dL Hct 40.7 (36.0-46.0) % MCV 93.3 (80.0-98.0) fL MCH 29.1 (27.0-32.0) pg MCHC 31.2 (31.0-37.0) g/dL RDW Std Deviation 51.0 (28.0-62.0) fl RDW Coeff of Amanda 15 (11.0-15.0) % Plt Count 225 (150-400) K/uL MPV 9.80 (7.40-12.00) fL Add Manual Diff YES Neutrophils % (Manual) 87 H (48.0-80.0) % Lymphocytes % (Manual) 8 L (16.0-40.0) % Monocytes % (Manual) 4 (0.0-15.0) % Myelocytes % 1 % Nucleated RBC % 0.0 /100WBC Absolute Seg Neuts 7.0 H (1.4-5.7) Lymphocytes # (Manual) 0.6 (0.6-2.4) Monocytes # (Manual) 0.3 (0.0-0.8) Absolute Myelocytes 0.1 Nucleated RBCs # 0 K/uL Sodium 139 (136-145) mmol/L Potassium 4.3 (3.5-5.1) mmol/L Chloride 102 (98-107) mmol/L Carbon Dioxide 27.7 (21.0-32.0) mmol/L BUN 19 H (7.0-18.0) mg/dL Creatinine 0.9 (0.6-1.0) mg/dL Est Cr Clr Drug Dosing 90.13 mL/min Estimated GFR (MDRD) > 60.0 ml/min Glucose 108 H (74-106) mg/dL Calcium 8.4 L (8.5-10.1) mg/dL Total Bilirubin 0.1 L (0.2-1.0) mg/dL AST 13 L (15-37) IU/L ALT 48 (14-63) IU/L Alkaline Phosphatase 56 (46-116) U/L Total Protein 6.1 L (6.4-8.2) g/dL Albumin 3.4 (3.4-5.0) g/dL Globulin 2.7 (2.6-4.0) g/dL Albumin/Globulin Ratio 1.3 (0.9-1.6) Departure - Departure Time of Disposition: 17:11 Disposition: Home, Self-Care 01 Condition: Good Clinical Impression: Fall Qualifiers: Encounter type: initial encounter Qualified Code(s): W19.XXXA - Unspecified fall, initial encounter - Discharge Information *PRESCRIPTION DRUG MONITORING PROGRAM REVIEWED*: Not Applicable *COPY OF PRESCRIPTION DRUG MONITORING REPORT IN PATIENT TANG: Not Applicable Referrals: PCP,Unknown [Primary Care Provider] - Forms: ED Department Discharge Additional Instructions: The following information is given to patients seen in the emergency department who are being discharged to home. This information is to outline your options for follow-up care. We provide all patients seen in our emergency department with a follow-up referral. The need for follow-up, as well as the timing and circumstances, are variable depending upon the specifics of your emergency department visit. If you don't have a primary care physician on staff, we will provide you with a referral. We always advise you to contact your personal physician following an emergency department visit to inform them of the circumstance of the visit and for follow-up with them and/or the need for any referrals to a consulting specialist. The emergency department will also refer you to a specialist when appropriate. This referral assures that you have the opportunity for follow-up care with a specialist. All of these measure are taken in an effort to provide you with optimal care, which includes your follow-up. Under all circumstances we always encourage you to contact your private physician who remains a resource for coordinating your care. When calling for follow-up care, please make the office aware that this follow-up is from your recent emergency room visit. If for any reason you are refused follow-up, please contact the [facility] Emergency Department at and asked to speak to the emergency department charge nurse. Take meds as directed, follow up with your primary care physician, return to ER if symptoms worsen or change. [facility] [address] [place] [id number]
[2019-01-23 16:17] LABS: BLOOD UREA NITROGEN,BUN 19 mg/dL (7.0-18.0); CARBON DIOXIDE,CO2 27.7 mmol/L (21.0-32.0); CHLORIDE,CL 102 mmol/L (98-107); GLUCOSE RANDOM 108 mg/dL (74-106); POTASSIUM,K 4.3 mmol/L (3.5-5.1); SODIUM,NA 139 mmol/L (136-145)
--- NOTE | 2019-01-23 16:22 | CT ---
Head CT Technique: Multiple axial sections through the brain were obtained. Intravenous contrast was not utilized. Findings: Large cystic area is seen within the right frontal lobe. Adjacent craniotomy is seen. Finding causes slight chronic-appearing midline shift to the left side. Mild ex vacuole enlargement of the right lateral ventricle is also noted. There are some dystrophic-type calcifications around this cystic area also believed to be chronic. Minimal areas of low density are seen around this cystic area presumably due to encephalomalacia. No other abnormal parenchymal densities are seen. No evidence of intracranial hemorrhage. No midline shift or mass effect is seen. Bone window settings were reviewed which shows no acute calvarial abnormality. Visualized paranasal sinuses and mastoid sinuses are clear. Impression: 1. Postoperative change within the right frontal lobe as noted above. 2. Nothing acute is appreciated on noncontrast head CT study. Note: No previous study is available to determine stability of above findings. Diagnostic code #2 MTDD
--- NOTE | 2019-01-23 16:36 | CT ---
CT lumbar spine Technique: Multiple axial sections through the lumbar spine were obtained from above the T11-12 disc inferiorly through the L5-S1 disc. Reconstructed coronal and sagittal images were reviewed. Comparison: No prior lumbar spine imaging. Findings: T11-12: Posterior disc is preserved. No central canal stenosis or neural foraminal stenosis is seen. T12-L1: Posterior disc is maintained. No central canal stenosis or neural foraminal stenosis is seen. L1-2: Posterior disc is preserved. No central canal stenosis or neural foraminal stenosis is seen. L2-3: Minimal circumferential disc bulge is seen. Posterior disc maintains a concave margin. No central canal stenosis or neural foraminal stenosis is seen. L3-4: Minimal circumferential disc bulge is seen. Posterior disc maintains a minimally concave margin. No central canal stenosis or neural foraminal stenosis is seen. L4-5: Severe disc space narrowing is noted with vacuum phenomena. Mild circumferential disc bulge is seen. Neural foraminal narrowing is noted on the right side causing mild compromise upon the exiting right L4 nerve root. Left nerve root exits without definite compromise. Mild degenerative apophyseal change is seen. No central canal stenosis is seen. L5-S1: Posterior disc space narrowing is seen. Circumferential disc bulge is noted. Mild diffuse posterior disc bulge is seen. No central canal stenosis is seen. Neural foramina are patent were the nerve roots exit. Mild degenerative apophyseal change is seen. Impression: Degenerative change as noted above. No focal disc herniation or central canal stenosis is seen. Mild right-sided neural foraminal stenosis is noted at L4-5. Diagnostic code #3 MTDD
[2019-01-23 17:15] VITALS: BP 133/88; PULSE 89
== END 2019-01-23 17:21 | disposition home or self-care (01) ==
LOC: MW.ED 15:04
DX: M54.5 Low back pain (principal); I10 Essential (primary) hypertension; E78.00 Pure hypercholesterolemia, unspecified; K21.9 Gastro-esophageal reflux disease without esophagitis; E03.9 Hypothyroidism, unspecified; Z91.81 History of falling; Z85.841 Personal history of malignant neoplasm of brain; Z91.048 Other nonmedicinal substance allergy status; Z79.899 Other long term (current) drug therapy; W18.30XA Fall on same level, unspecified, initial encounter; W22.8XXA Striking against or struck by other objects, initial encounter
CPT/HCPCS: 36415; 70450; 70450-26; 72131; 72131-26; 80053; 85025; 99284; 99284-25

== ENCOUNTER 2019-02-19 23:25 | Inpatient (IN) | payer OTHER ==
[2019-02-19] MEDS ORDERED: methylPREDNISolone Sodium Succinate 125 MG/2 ML SDV IVPUSH ONE (23:36)
[2019-02-19] MEDS ORDERED: Sodium Chloride 0.9% 1,000 ML IV ONE (23:36)
[2019-02-19] MEDS ORDERED: Albuterol/Ipratropium 3.0-0.5 MG/3 ML Neb Soln NEB ONE (23:36)
--- NOTE | 2019-02-20 00:45 | CR ---
INDICATION: Chest pain, shortness of breath TECHNIQUE: Chest radiograph 1 view COMPARISON: None FINDINGS: Severe degradation of image quality noted due to body habitus. Mediastinum: The mediastinum is normal in appearance. The heart silhouette is normal in size and morphology but evaluation is limited by the small lung volumes. Lung: There are small lung volumes are present with moderate airspace infiltrates present bilaterally. No sign of pleural effusion seen. No pneumothorax is identified. Bone and Soft tissue: Unremarkable for age. IMPRESSION: 1. There are small lung volumes are present with moderate airspace infiltrates present bilaterally. Findings may be due to pulmonary edema or pneumonia. Dictated by Conrad Khanna MD @ 02/20/2019 12:43:40 AM Dictated by: Conrad Khanna MD @ 02/20/2019 00:43:43 (Electronically Signed)
[2019-02-20 00:55] LABS: BLOOD UREA NITROGEN,BUN 13 mg/dL (7.0-18.0); CARBON DIOXIDE,CO2 31.4 mmol/L (21.0-32.0); CHLORIDE,CL 102 mmol/L (98-107); GLUCOSE RANDOM 106 mg/dL (74-106); SODIUM,NA 144 mmol/L (136-145)
[2019-02-20] MEDS ORDERED: Iopamidol 755 MG/ML 500 ML Multipack Bottle IVPUSH STA (01:45)
[2019-02-20] MEDS ORDERED: Enoxaparin 150 MG/1 ML Syringe SUBCUT ONE (02:02)
--- NOTE | 2019-02-20 02:03 | CT ---
INDICATION: +D-dimer, tachy TECHNIQUE: CT chest with i.v. contrast using pulmonary angiographic technique. Coronal and sagittal reformats were obtained. CONTRAST: 80 mL Isovue 370 COMPARISON: None FINDINGS: Cardiovascular: [id number] acute bilateral pulmonary emboli seen. Severe enlargement of the main pulmonary artery is present measuring 4 cm. The heart has an unremarkable appearance and size. No sign of aneurysm in the thoracic aorta. Mediastinum: No mass or adenopathy seen. Lung: Severe diffuse patchy airspace and ground-glass opacities are present bilaterally. There is a nodular density in the anterior right lower lobe on image 43 that measures 1.8 x 1.1 cm. Pleura and pericardium: No sign of pleural effusion seen. No significant pericardial effusion is present. Chest wall and axilla: No mass or adenopathy seen. Bone: Unremarkable for age. Upper abdomen: Moderate to severe fatty infiltration of the visualized liver is noted. IMPRESSIONS: 1. [id number] acute bilateral pulmonary emboli seen. 2. Severe diffuse patchy airspace and ground-glass opacities are present bilaterally. Findings may be due to atelectasis, pulmonary hemorrhage, or pulmonary edema. 3. There is a nodular density in the anterior right lower lobe on image 43 that measures 1.8 x 1.1 cm. Follow-up chest CT in 1-2 months is recommended when the patient is stable to exclude a pulmonary nodule. If this lesion persists, further evaluation with biopsy or PET scan may be warranted. The findings were discussed with Dr. Saldaña at 2:01 AM. Dictated by Conrad Khanna MD @ 02/20/2019 2:01:25 AM Please note that all CT scans at this facility use dose modulation, iterative reconstruction, and/or weight-based dosing when appropriate to reduce radiation dose to as low as reasonably achievable. Dictated by: Conrad Khanna MD @ 02/20/2019 02:01:41 (Electronically Signed)
--- NOTE | 2019-02-20 02:19 | EDM.PDOC ---
ED HPI GENERAL MEDICAL PROBLEM - General Chief Complaint: Fever Stated Complaint: AMBULANCE PATIENT Time Seen by Provider: 02/20/19 02:14 Source of Information: Reports: Patient, EMS, Family - History of Present Illness INITIAL COMMENTS - FREE TEXT/NARRATIVE: HISTORY AND PHYSICAL: History of present illness: [Patient presents via ambulance from [facility] Patient has a history of glioblastoma, and recent pneumonia half-way staff noted an increased temperature today as well as increased oxygen requirement On arrival she is not in distress however tachycardic with mild hypotension, d- dimer was positive CTA performed is also positive No current fever nausea vomiting chills sweats denied chest pain headache dizziness or palpitation no bowel or urine symptoms ] Review of systems: As per history of present illness and below otherwise all systems reviewed and negative. Past medical history: As per history of present illness and as reviewed below otherwise noncontributory. Surgical history: As per history of present illness and as reviewed below otherwise noncontributory. Social history: No reported history of drug or alcohol abuse. Family history: As per history of present illness and as reviewed below otherwise noncontributory. Physical exam: HEENT: Atraumatic, normocephalic, pupils reactive, negative for conjunctival pallor or scleral icterus, mucous membranes moist, throat clear, neck supple, nontender, trachea midline. Lungs: Clear to auscultation, breath sounds equal bilaterally, chest nontender. Heart: S1S2, regular, negative for clicks, rubs, or JVD. Abdomen: Soft, nondistended, nontender. Negative for masses or hepatosplenomegaly. Negative for costovertebral tenderness. Pelvis: Stable nontender. Genitourinary: Deferred. Rectal: Deferred. Extremities: Atraumatic, negative for cords or calf pain. Neurovascular unremarkable. Neuro: Awake, alert, oriented. Cranial nerves II through XII unremarkable. Cerebellum unremarkable. Motor and sensory unremarkable throughout. Exam nonfocal. Diagnostics: [CBC CMP UA d-dimer INR blood cultures 2 G Chest 1 view CTA chest] Therapeutics: normal saline 1 25 mL per hour Lovenox 1 mg/kg Rocephin 1 g IV DuoNeb Solu-Medrol ] Impression: [ bilateral pulmonary embolus ] infiltrates on x-ray Chronic history of baseline Definitive disposition and diagnosis as appropriate pending reevaluation and review of above. 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 - Related Data Allergies Allergy/AdvReac Type Severity Reaction Status Date / Time adhesive tape Allergy Irritabilit Verified 02/19/19 23:42 y Home Meds: Home Meds Levothyroxine 150 mcg PO ACBREAKFAST 11/09/13 [History] amLODIPine [Norvasc] 10 mg PO DAILY 11/09/13 [History] Omeprazole Magnesium [Prilosec Otc] 20 mg PO DAILY 02/14/16 [History] LORazepam 0.5 mg PO Q8H PRN 12/18/18 [History] oxyCODONE 5 mg PO Q4H PRN 12/18/18 [History] Acetaminophen [Tylenol Extra Strength] 1,000 mg PO Q6HR PRN 02/20/19 [History] Bisacodyl [Dulcolax] 10 mg RECTAL Q24H PRN 02/20/19 [History] Budesonide [Pulmicort] 0.5 mg IH BID PRN 02/20/19 [History] Calcium Carbonate/Vitamin D3 [Calcium Carb 500 MG] 1,000 mg PO Q6HR PRN [History] Levalbuterol HCl [Xopenex] 1.25 mg INH Q8HR PRN 02/20/19 [History] Levothyroxine 75 mcg PO DAILY 02/20/19 [History] Magnesium Hydroxide [Milk of Magnesia] 30 ml PO DAILY PRN 02/20/19 [History] Ondansetron [Zofran ODT] 4 mg PO Q6HR PRN 02/20/19 [History] Ranitidine [Zantac] 150 mg PO BEDTIME 02/20/19 [History] levETIRAcetam [Keppra] 1,000 mg PO BID 02/20/19 [History] Melatonin 6 mg PO BEDTIME PRN 02/21/19 [History] Past Medical History HEENT History: Reports: None Cardiovascular History: Reports: Arrhythmia, High Cholesterol, Hypertension Respiratory History: Reports: Pneumonia, Recurrent Other Respiratory History: acute drug induced interstitial lung disorders Gastrointestinal History: Reports: GERD, Irritable Bowel Syndrome Genitourinary History: Reports: Other (See Below) Other Genitourinary History: has three funcitoning kidneys 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 Psychiatric History: Reports: None Endocrine/Metabolic History: Reports: Hypothyroidism, Obesity/BMI 30+ Hematologic History: Reports: Anesthesia Reaction Immunologic History: Reports: None Oncologic (Cancer) History: Reports: Brain Dermatologic History: Reports: None - Infectious Disease History Infectious Disease History: Reports: Chicken Pox - Past Surgical History HEENT Surgical History: Reports: Oral Surgery, Tonsillectomy Cardiovascular Surgical History: Reports: None Respiratory Surgical History: Reports: None GI Surgical History: Reports: None Female Surgical History: Reports: Section, Cervical Conization, Hysterectomy Endocrine Surgical History: Reports: None Neurological Surgical History: Reports: None Musculoskeletal Surgical History: Reports: None Oncologic Surgical History: Reports: None - History Comment History Comment: etoh "weekly" Social & Family History - Family History Family Medical History: Noncontributory - Tobacco Use Smoking Status *Q: Unknown Ever Smoked - Caffeine Use Caffeine Use: Reports: None Other Caffeine Use: 2 cups daily Caffeine Use Comment: two coffees daily - Recreational Drug Use Recreational Drug Use: No - Living Situation & Occupation Living situation: Reports: , with Family Occupation: Unemployed ED ROS GENERAL - Review of Systems Review Of Systems: See Below ED EXAM, GENERAL - Physical Exam Exam: See Below Course - Vital Signs Last Recorded V/S: Last Vital Signs Temp 98.4 F 02/23/19 08:00 Pulse 108 H 02/23/19 08:00 Resp 22 H 02/23/19 08:00 BP 141/91 H 02/23/19 08:00 Pulse Ox 93 L 02/23/19 08:00 - Orders/Labs/Meds Labs: Laboratory Tests 02/20/19 02/20/19 02/20/19 Range/Units 00:15 00:15 00:15 WBC 7.93 (4.0-11.0) K/uL RBC 4.63 (4.30-5.90) M/uL Hgb 13.2 (12.0-16.0) g/dL Hct 42.3 (36.0-46.0) % MCV 91.4 (80.0-98.0) fL MCH 28.5 (27.0-32.0) pg MCHC 31.2 (31.0-37.0) g/dL RDW Std Deviation 51.5 (28.0-62.0) fl RDW Coeff of Amanda 15 (11.0-15.0) % Plt Count 343 (150-400) K/uL MPV 9.50 (7.40-12.00) fL Neut % (Auto) 75.0 (48.0-80.0) % Lymph % (Auto) 15.0 L (16.0-40.0) % Kings % (Auto) 8.6 (0.0-15.0) % Eos % (Auto) 1.1 (0.0-7.0) % Baso % (Auto) 0.3 (0.0-1.5) % Neut # (Auto) 6.0 H (1.4-5.7) K/uL Lymph # (Auto) 1.2 (0.6-2.4) K/uL Kings # (Auto) 0.7 (0.0-0.8) K/uL Eos # (Auto) 0.1 (0.0-0.7) K/uL Baso # (Auto) 0.0 (0.0-0.1) K/uL Nucleated RBC % 0.0 /100WBC Nucleated RBCs # 0 K/uL INR D-Dimer, Quantitative (0.0-0.50) mg/L FEU Lactate 1.1 (0.20-2.00) mmol/L Sodium 144 (136-145) mmol/L Potassium 4.0 (3.5-5.1) mmol/L Chloride 102 (98-107) mmol/L Carbon Dioxide 31.4 (21.0-32.0) mmol/L BUN 13 (7.0-18.0) mg/dL Creatinine 0.8 (0.6-1.0) mg/dL Est Cr Clr Drug Dosing TNP Estimated GFR (MDRD) > 60.0 ml/min Glucose 106 (74-106) mg/dL Calcium 8.9 (8.5-10.1) mg/dL Total Bilirubin 0.4 (0.2-1.0) mg/dL AST 16 (15-37) IU/L ALT 18 (14-63) IU/L Alkaline Phosphatase 75 (46-116) U/L B-Natriuretic Peptide (<100) PG/ML Total Protein 6.9 (6.4-8.2) g/dL Albumin 2.9 L (3.4-5.0) g/dL Globulin 4.0 (2.6-4.0) g/dL Albumin/Globulin Ratio 0.7 L (0.9-1.6) 02/20/19 02/20/19 02/20/19 Range/Units 00:15 00:15 00:15 WBC (4.0-11.0) K/uL RBC (4.30-5.90) M/uL Hgb (12.0-16.0) g/dL Hct (36.0-46.0) % MCV (80.0-98.0) fL MCH (27.0-32.0) pg MCHC (31.0-37.0) g/dL RDW Std Deviation (28.0-62.0) fl RDW Coeff of Amanda (11.0-15.0) % Plt Count (150-400) K/uL MPV (7.40-12.00) fL Neut % (Auto) (48.0-80.0) % Lymph % (Auto) (16.0-40.0) % Kings % (Auto) (0.0-15.0) % Eos % (Auto) (0.0-7.0) % Baso % (Auto) (0.0-1.5) % Neut # (Auto) (1.4-5.7) K/uL Lymph # (Auto) (0.6-2.4) K/uL Kings # (Auto) (0.0-0.8) K/uL Eos # (Auto) (0.0-0.7) K/uL Baso # (Auto) (0.0-0.1) K/uL Nucleated RBC % /100WBC Nucleated RBCs # K/uL INR 1.03 D-Dimer, Quantitative 3.93 H (0.0-0.50) mg/L FEU Lactate (0.20-2.00) mmol/L Sodium (136-145) mmol/L Potassium (3.5-5.1) mmol/L Chloride (98-107) mmol/L Carbon Dioxide (21.0-32.0) mmol/L BUN (7.0-18.0) mg/dL Creatinine (0.6-1.0) mg/dL Est Cr Clr Drug Dosing Estimated GFR (MDRD) ml/min Glucose (74-106) mg/dL Calcium (8.5-10.1) mg/dL Total Bilirubin (0.2-1.0) mg/dL AST (15-37) IU/L ALT (14-63) IU/L Alkaline Phosphatase (46-116) U/L B-Natriuretic Peptide 79 (<100) PG/ML Total Protein (6.4-8.2) g/dL Albumin (3.4-5.0) g/dL Globulin (2.6-4.0) g/dL Albumin/Globulin Ratio (0.9-1.6) Meds: Medications Discontinued Medications Generic Name Dose Route Start Last Admin Trade Name Freq PRN Reason Stop Dose Admin Acetaminophen 1,000 mg 02/20/19 03:53 02/20/19 16:43 Tylenol Extra Strength PO 1,000 mg Q6HR PRN Administration Pain Albuterol/Ipratropium 3 ml 02/19/19 23:36 02/20/19 00:05 Duoneb 3.0-0.5 Mg/3 Ml NEB 02/19/19 23:37 3 ml ONETIME ONE Administration Amlodipine Besylate 10 mg 02/20/19 09:00 02/22/19 12:50 Norvasc PO Not Given DAILY BARBARA Atropine Sulfate 0 ml 02/23/19 08:23 02/23/19 15:35 Atropine 1% Ophth Soln SL 1 ml Q2H PRN Administration secretions Bisacodyl 10 mg 02/20/19 03:53 Dulcolax RECTAL Q24H PRN Constipation Budesonide 0.5 mg 02/20/19 03:53 Pulmicort NEB BID PRN Dyspnea Dexamethasone 10 mg 02/23/19 14:52 02/23/19 15:11 Dexamethasone IVPUSH 02/23/19 14:53 10 mg ONETIME ONE Administration Dexamethasone 4 mg 02/23/19 21:00 Dexamethasone IVPUSH Q6H BARBARA Enoxaparin Sodium 125 mg 02/20/19 02:02 02/20/19 02:11 Lovenox SUBCUT 02/20/19 02:03 125 mg ONETIME ONE Administration Famotidine 20 mg 02/20/19 21:00 02/21/19 21:42 Pepcid PO 20 mg BEDTIME BARBARA Administration Heparin Sodium (Porcine) 5,000 units 02/20/19 13:30 02/20/19 14:04 Heparin Sodium IVPUSH 02/20/19 13:31 5,000 units .BOLUS ONE Administration Hydromorphone HCl 1 mg 02/23/19 14:51 02/23/19 15:32 Dilaudid IVPUSH 1 mg Q1H PRN Administration pain/agitation Sodium Chloride 1,000 mls @ 999 mls/hr 02/19/19 23:36 02/20/19 00:15 Normal Saline IV 02/20/19 00:36 999 mls/hr STAT ONE Administration Ceftriaxone Sodium/Dextrose 1 50 mls @ 100 mls/hr 02/20/19 02:23 02/20/19 03: 19 gm/ Premix IV 02/20/19 02:52 100 mls/hr ONETIME ONE Administration Sodium Chloride 1,000 mls @ 125 mls/hr 02/20/19 02:30 02/22/19 09:19 Normal Saline IV 125 mls/hr STAT BARBARA Administration Heparin Sodium/Sodium Chloride 25,000 unit in 500 mls @ 45.252 mls/hr 13:30 02/22/19 08:17 Heparin-1/2ns 25,000 Units/500 IV 11 units/kg/hr TITRATE BARBARA 27.654 mls/hr Titration Protocol 18 UNITS/KG/HR Levofloxacin/Dextrose 750 mg/ 150 mls @ 100 mls/hr 02/20/19 12:35 02/20/19 18 :21 Premix IV Not Given Q24H BARBARA Piperacillin Sod/Tazobactam 100 mls @ 100 mls/hr 02/20/19 12:35 02/20/19 14: 16 Sod 4.5 gm/ Sodium Chloride IV 100 mls/hr Q6H BARBARA Administration Piperacillin Sod/Tazobactam 100 mls @ 100 mls/hr 02/20/19 20:20 02/22/19 08: 11 Sod 4.5 gm/ Sodium Chloride IV 100 mls/hr Q6H BARBARA Administration Levofloxacin/Dextrose 750 mg/ 150 mls @ 100 mls/hr 02/20/19 15:30 02/22/19 16 :55 Premix IV Not Given Q24H BARBARA Vancomycin HCl 2 gm/ Sodium 500 mls @ 333.333 mls/hr 02/20/19 20:00 02/20/19 21:31 Chloride IV 02/20/19 21:29 333.333 mls/hr ONETIME ONE Administration Vancomycin HCl 1.5 gm/ Premix 300 mls @ 300 mls/hr 02/21/19 08:00 02/22/19 08 :50 IV Not Given Q12H BARBARA Potassium Chloride/Dextrose/Sod Cl 1,000 mls @ 125 mls/hr 02/21/19 23:15 23:39 D5 1/2 Ns W/ 20 Meq/L Kcl IV 02/22/19 07:14 125 mls/hr ONETIME ONE Administration Vancomycin HCl 1.75 gm/ Sodium 500 mls @ 333.333 mls/hr 02/22/19 08:30 09:27 Chloride IV 333.333 mls/hr Q12H BARBARA Administration Levetiracetam 1,000 mg/ Sodium 110 mls @ 440 mls/hr 02/22/19 12:00 02/22/19 12:36 Chloride IV 440 mls/hr Q12HR@0000,1200 BARBARA Administration Potassium Chloride 20 meq/ 50 mls @ 25 mls/hr 02/22/19 12:59 02/22/19 13:15 Premix IV 02/22/19 14:58 25 mls/hr ONETIME ONE Administration Potassium Chloride/Sodium Chloride 1,000 mls @ 125 mls/hr 02/22/19 13:00 13:11 Normal Saline With 20 Meq Kcl IV 125 mls/hr ASDIRECTED BARBARA Administration Iopamidol 100 ml 02/20/19 01:45 02/20/19 01:46 Isovue Multipack-370 (76%) IVPUSH 02/20/19 01:46 100 ml ONETIME STA Administration Levalbuterol HCl 1.25 mg 02/20/19 03:53 Xopenex INH Q8HR PRN Dyspnea Levetiracetam 1,000 mg 02/20/19 09:00 02/22/19 11:57 Keppra PO Not Given BID BARBARA Levothyroxine Sodium 75 mcg 02/20/19 09:00 02/20/19 11:11 Levothyroxine PO 75 mcg DAILY BARBARA Administration Levothyroxine Sodium 150 mcg 02/21/19 07:30 02/21/19 10:08 Levothyroxine PO 150 mcg ASDIRECTED BARBARA Administration Levothyroxine Sodium 75 mcg 02/23/19 07:30 Levothyroxine PO ASDIRECTED BARBARA Lorazepam 0.5 mg 02/20/19 04:15 Ativan PO Q8H PRN Anxiety Lorazepam 1 mg 02/23/19 08:23 Ativan IVPUSH Q4H PRN agitation,seizure Lorazepam 2 mg 02/23/19 13:18 02/23/19 14:17 Ativan IVPUSH 2 mg Q2H PRN Administration agitation,seizure Lorazepam 2 mg 02/23/19 13:18 02/23/19 13:23 Ativan IVPUSH 02/23/19 13:19 2 mg ONETIME ONE Administration Lorazepam 2 mg 02/23/19 14:49 Ativan IVPUSH .ASNEEDED PRN Seizures Lorazepam 2 mg 02/23/19 18:00 Ativan IVPUSH Q4H [facility] Magnesium Hydroxide 30 ml 02/20/19 03:53 Milk Of Magnesia PO DAILY PRN Constipation Methylprednisolone Sodium Succinate 125 mg 02/19/19 23:36 02/20/19 00:25 Solu-Medrol IVPUSH 02/19/19 23:37 125 mg ONETIME ONE Administration Morphine Sulfate 2 mg 02/22/19 18:29 Morphine IVPUSH Q4H PRN Agitation Morphine Sulfate 2 mg 02/23/19 08:24 02/23/19 10:29 Morphine IVPUSH 2 mg Q1H PRN Administration Agitation/pain Morphine Sulfate 5 mg 02/23/19 11:42 02/23/19 13:17 Morphine IVPUSH 5 mg Q1H PRN Administration Agitation/pain Morphine Sulfate 5 mg 02/23/19 13:18 02/23/19 14:08 Morphine IVPUSH 5 mg Q30M PRN Administration Airhunger/SOB Omeprazole 20 mg 02/20/19 07:30 02/22/19 12:49 Omeprazole PO Not Given ACBREAKFAST [facility] Ondansetron HCl 4 mg 02/20/19 03:53 Zofran Odt PO Q6HR PRN Nausea Oxycodone HCl 5 mg 02/20/19 03:53 Oxycodone PO Q4H PRN Pain Calcium Carbonate/ 1 each 02/20/19 03:53 Vitamin D3 [Calcium PO Carb 500 Mg] 1,000 Q6HR PRN Heartburn Melatonin [Melatonin 1 each 02/20/19 21:00 ] 6 Mg PO BEDTIME PRN Insomnia Vancomycin HCl 1 dose 02/20/19 18:00 Pharmacy To Dose - Vancomycin .XX ASDIRECTED BARBARA Departure - Departure Time of Disposition: 07:35 Disposition: Admitted As Inpatient 68 Condition: Poor Clinical Impression: Glioblastoma Pulmonary emboli Qualifiers: Pulmonary embolism type: multiple subsegmental (without acute cor pulmonale) Qualified Code(s): I26.94 - Multiple subsegmental pulmonary emboli without acute cor pulmonale - Discharge Information
[2019-02-20] MEDS ORDERED: cefTRIAXone 1 GM in Premix Bag 1 BAG IV ONE (02:23)
[2019-02-20] MEDS: Sodium Chloride 0.9% 1,000 ML IV SCH ×3 (02:59→11:29)
[2019-02-20] MEDS ORDERED: Budesonide 0.5 MG/2 ML Neb Susp NEB PRN (03:53)
[2019-02-20] MEDS ORDERED: Bisacodyl 10 MG Supp RECTAL PRN (03:53)
[2019-02-20] MEDS ORDERED: Ondansetron 4 MG Tab.DIS PO PRN (03:53)
[2019-02-20] MEDS ORDERED: VITAMIN D3 PO PRN (03:53)
[2019-02-20] MEDS ORDERED: oxyCODONE 5 MG Tab PO PRN (03:53)
[2019-02-20] MEDS ORDERED: CALCIUM CARBONATE PO PRN (03:53)
[2019-02-20] MEDS ORDERED: Acetaminophen 500 MG Tab PO PRN (03:53)
[2019-02-20] MEDS ORDERED: Magnesium Hydroxide 400 MG/5 ML Susp 30 ML Cup PO PRN (03:53)
[2019-02-20] MEDS ORDERED: Levalbuterol HCl 1.25 MG/3 ML Neb INH PRN (03:53)
[2019-02-20] MEDS ORDERED: LORazepam 0.5 MG Tab PO PRN (04:15)
[2019-02-20 06:38] LABS: BLOOD UREA NITROGEN,BUN 13 mg/dL (7.0-18.0); CARBON DIOXIDE,CO2 27.4 mmol/L (21.0-32.0); CHLORIDE,CL 104 mmol/L (98-107); GLUCOSE RANDOM 167 mg/dL (74-106); SODIUM,NA 142 mmol/L (136-145)
[2019-02-20] MEDS: Omeprazole 20 MG Cap.CR PO SCH (07:35)
[2019-02-20] MEDS ORDERED: Levothyroxine 75 MCG Tab PO SCH (09:00)
--- NOTE | 2019-02-20 09:41 | PCM.HP.2 ---
H&P History of Present Illness - General Date of Service: 02/20/19 Admit Problem/Dx: Admission Diagnosis/Problem Admission Diagnosis/Problem Pulmonary embolism Source of Information: Family, Old Records History Limitations: Reports: Altered Mental Status - History of Present Illness Initial Comments - Free Text/Narative: This 48 year old female with pmh of malignant glioblastoma, receiving palliative chemotherapy presented to the ED from [facility] where they noted she was tachycardic, short of breath, and having fevers. She was brought to the ED and found to have elevated D Dimer and subsequently noted to have multiple bilateral pulmonary emboli. She was intubated and transfer to [place] approximately 1 month ago for respiratory failure and treated for pneumonia, at that point family unable to care for her at home so she was admitted to [facility]. arrived today. We spoke with him regarding condition. Ilene does intermittently have confusion and alertness if off and on. We did discuss code status at length with , Ilene being alert and oriented stated she wants to live, that is her goal. The is aware of poor prognosis but wants to follow her wishes at this time. - Related Data Allergies/Adverse Reactions: Allergies Allergy/AdvReac Type Severity Reaction Status Date / Time adhesive tape Allergy Irritabilit Verified 02/19/19 23:42 y Home Medications: Home Meds Levothyroxine 150 mcg PO ACBREAKFAST 11/09/13 [History] amLODIPine [Norvasc] 10 mg PO DAILY 11/09/13 [History] Omeprazole Magnesium [Prilosec Otc] 20 mg PO DAILY 02/14/16 [History] LORazepam 0.5 mg PO Q8H PRN 12/18/18 [History] oxyCODONE 5 mg PO Q4H PRN 12/18/18 [History] Acetaminophen [Tylenol Extra Strength] 1,000 mg PO Q6HR PRN 02/20/19 [History] Bisacodyl [Dulcolax] 10 mg RECTAL Q24H PRN 02/20/19 [History] Budesonide [Pulmicort] 0.5 mg IH BID PRN 02/20/19 [History] Calcium Carbonate/Vitamin D3 [Calcium Carb 500 MG] 1,000 mg PO Q6HR PRN [History] Levalbuterol HCl [Xopenex] 1.25 mg INH Q8HR PRN 02/20/19 [History] Levothyroxine 75 mcg PO DAILY 02/20/19 [History] Magnesium Hydroxide [Milk of Magnesia] 30 ml PO DAILY PRN 02/20/19 [History] Melatonin 6 mg PO BEDTIME PRN 02/20/19 [History] Ondansetron [Zofran ODT] 4 mg PO Q6HR PRN 02/20/19 [History] Ranitidine [Zantac] 150 mg PO BEDTIME 02/20/19 [History] levETIRAcetam [Keppra] 1,000 mg PO BID 02/20/19 [History] Past Medical History HEENT History: Reports: None Cardiovascular History: Reports: Arrhythmia, High Cholesterol, Hypertension Respiratory History: Reports: Intubation, Previous, Pneumonia, Recurrent Other Respiratory History: acute drug induced interstitial lung disorders Gastrointestinal History: Reports: GERD, Irritable Bowel Syndrome Genitourinary History: Reports: Other (See Below) Other Genitourinary History: has three funcitoning kidneys 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 Psychiatric History: Reports: None Endocrine/Metabolic History: Reports: Hypothyroidism, Obesity/BMI 30+ Hematologic History: Reports: Anesthesia Reaction Immunologic History: Reports: None Oncologic (Cancer) History: Reports: Brain Dermatologic History: Reports: None - Infectious Disease History Infectious Disease History: Reports: Chicken Pox - Past Surgical History HEENT Surgical History: Reports: Oral Surgery, Tonsillectomy Cardiovascular Surgical History: Reports: None Respiratory Surgical History: Reports: None GI Surgical History: Reports: None Female Surgical History: Reports: Section, Cervical Conization, Hysterectomy Endocrine Surgical History: Reports: None Neurological Surgical History: Reports: None Musculoskeletal Surgical History: Reports: None Oncologic Surgical History: Reports: None - History Comment History Comment: etoh "weekly" Social & Family History - Family History Family Medical History: Noncontributory - Tobacco Use Smoking Status *Q: Unknown Ever Smoked - Caffeine Use Caffeine Use: Reports: None Other Caffeine Use: 2 cups daily Caffeine Use Comment: two coffees daily - Recreational Drug Use Recreational Drug Use: No - Living Situation & Occupation Living situation: Reports: , with Family Occupation: Unemployed H&P Review of Systems - Review of Systems: Review Of Systems: Unable To Obtain Exam - Exam Exam: See Below - Vital Signs Vital Signs: Last Vital Signs Temp 97.8 F 02/20/19 03:10 Pulse 111 H 02/20/19 01:50 Resp 22 H 02/20/19 05:51 BP 120/79 02/20/19 05:51 Pulse Ox 95 02/20/19 05:51 Weight: 125.7 kg - Exam Quality Assessment: Supplemental Oxygen, Urinary Catheter, DVT Prophylaxis General: Alert, Oriented (intermittently.) HEENT: Conjunctiva Clear, Mucosa Moist & [place], Posterior Pharynx Clear Lungs: Decreased Breath Sounds. No: Normal Respiratory Effort (tachypnea noted) Cardiovascular: Regular Rhythm, Tachycardia GI/Abdominal Exam: Normal Bowel Sounds, Soft, Non-Tender Extremities: Normal Inspection, Normal Range of Motion, Non-Tender, No Pedal Edema Neuro Extensive - Mental Status: Normal Mood/Affect Neuro Extensive - Motor, Sensory, Reflexes: Facial palsy (L) (at baseline) - Patient Data Lab Results Last 24 hrs: Laboratory Results - last 24 hr 02/20/19 02/20/19 02/20/19 Range/Units 00:15 00:15 00:15 WBC 7.93 (4.0-11.0) K/uL RBC 4.63 (4.30-5.90) M/uL Hgb 13.2 (12.0-16.0) g/dL Hct 42.3 (36.0-46.0) % MCV 91.4 (80.0-98.0) fL MCH 28.5 (27.0-32.0) pg MCHC 31.2 (31.0-37.0) g/dL RDW Std Deviation 51.5 (28.0-62.0) fl RDW Coeff of Amanda 15 (11.0-15.0) % Plt Count 343 (150-400) K/uL MPV 9.50 (7.40-12.00) fL Neut % (Auto) 75.0 (48.0-80.0) % Lymph % (Auto) 15.0 L (16.0-40.0) % Haines % (Auto) 8.6 (0.0-15.0) % Eos % (Auto) 1.1 (0.0-7.0) % Baso % (Auto) 0.3 (0.0-1.5) % Neut # (Auto) 6.0 H (1.4-5.7) K/uL Lymph # (Auto) 1.2 (0.6-2.4) K/uL Haines # (Auto) 0.7 (0.0-0.8) K/uL Eos # (Auto) 0.1 (0.0-0.7) K/uL Baso # (Auto) 0.0 (0.0-0.1) K/uL Nucleated RBC % 0.0 /100WBC Nucleated RBCs # 0 K/uL INR D-Dimer, Quantitative (0.0-0.50) mg/L FEU Lactate 1.1 (0.20-2.00) mmol/L Sodium 144 (136-145) mmol/L Potassium 4.0 (3.5-5.1) mmol/L Chloride 102 (98-107) mmol/L Carbon Dioxide 31.4 (21.0-32.0) mmol/L BUN 13 (7.0-18.0) mg/dL Creatinine 0.8 (0.6-1.0) mg/dL Est Cr Clr Drug Dosing TNP Estimated GFR (MDRD) > 60.0 ml/min Glucose 106 (74-106) mg/dL Calcium 8.9 (8.5-10.1) mg/dL Total Bilirubin 0.4 (0.2-1.0) mg/dL AST 16 (15-37) IU/L ALT 18 (14-63) IU/L Alkaline Phosphatase 75 (46-116) U/L B-Natriuretic Peptide (<100) PG/ML Total Protein 6.9 (6.4-8.2) g/dL Albumin 2.9 L (3.4-5.0) g/dL Globulin 4.0 (2.6-4.0) g/dL Albumin/Globulin Ratio 0.7 L (0.9-1.6) Urine Color Urine Appearance Urine pH (5.0-8.0) Ur Specific [facility] (1.001-1.035) Urine Protein (NEGATIVE) mg/dL Urine Glucose (UA) (NEGATIVE) mg/dL Urine Ketones (NEGATIVE) mg/dL Urine Occult Blood (NEGATIVE) Urine Nitrite (NEGATIVE) Urine Bilirubin (NEGATIVE) Urine Urobilinogen (<2.0) EU/dL Ur Leukocyte Esterase (NEGATIVE) Urine RBC (0-2/HPF) Urine WBC (0-5/HPF) Ur Epithelial Cells (NONE-FEW) Urine Bacteria (NEGATIVE) 02/20/19 02/20/19 02/20/19 Range/Units 00:15 00:15 00:15 WBC (4.0-11.0) K/uL RBC (4.30-5.90) M/uL Hgb (12.0-16.0) g/dL Hct (36.0-46.0) % MCV (80.0-98.0) fL MCH (27.0-32.0) pg MCHC (31.0-37.0) g/dL RDW Std Deviation (28.0-62.0) fl RDW Coeff of Amanda (11.0-15.0) % Plt Count (150-400) K/uL MPV (7.40-12.00) fL Neut % (Auto) (48.0-80.0) % Lymph % (Auto) (16.0-40.0) % Haines % (Auto) (0.0-15.0) % Eos % (Auto) (0.0-7.0) % Baso % (Auto) (0.0-1.5) % Neut # (Auto) (1.4-5.7) K/uL Lymph # (Auto) (0.6-2.4) K/uL Haines # (Auto) (0.0-0.8) K/uL Eos # (Auto) (0.0-0.7) K/uL Baso # (Auto) (0.0-0.1) K/uL Nucleated RBC % /100WBC Nucleated RBCs # K/uL INR 1.03 D-Dimer, Quantitative 3.93 H (0.0-0.50) mg/L FEU Lactate (0.20-2.00) mmol/L Sodium (136-145) mmol/L Potassium (3.5-5.1) mmol/L Chloride (98-107) mmol/L Carbon Dioxide (21.0-32.0) mmol/L BUN (7.0-18.0) mg/dL Creatinine (0.6-1.0) mg/dL Est Cr Clr Drug Dosing Estimated GFR (MDRD) ml/min Glucose (74-106) mg/dL Calcium (8.5-10.1) mg/dL Total Bilirubin (0.2-1.0) mg/dL AST (15-37) IU/L ALT (14-63) IU/L Alkaline Phosphatase (46-116) U/L B-Natriuretic Peptide 79 (<100) PG/ML Total Protein (6.4-8.2) g/dL Albumin (3.4-5.0) g/dL Globulin (2.6-4.0) g/dL Albumin/Globulin Ratio (0.9-1.6) Urine Color Urine Appearance Urine pH (5.0-8.0) Ur Specific [facility] (1.001-1.035) Urine Protein (NEGATIVE) mg/dL Urine Glucose (UA) (NEGATIVE) mg/dL Urine Ketones (NEGATIVE) mg/dL Urine Occult Blood (NEGATIVE) Urine Nitrite (NEGATIVE) Urine Bilirubin (NEGATIVE) Urine Urobilinogen (<2.0) EU/dL Ur Leukocyte Esterase (NEGATIVE) Urine RBC (0-2/HPF) Urine WBC (0-5/HPF) Ur Epithelial Cells (NONE-FEW) Urine Bacteria (NEGATIVE) 02/20/19 02/20/19 02/20/19 Range/Units 02:29 05:55 05:55 WBC 7.77 (4.0-11.0) K/uL RBC 4.39 (4.30-5.90) M/uL Hgb 12.4 (12.0-16.0) g/dL Hct 40.1 (36.0-46.0) % MCV 91.3 (80.0-98.0) fL MCH 28.2 (27.0-32.0) pg MCHC 30.9 L (31.0-37.0) g/dL RDW Std Deviation 50.5 (28.0-62.0) fl RDW Coeff of Amanda 15 (11.0-15.0) % Plt Count 338 (150-400) K/uL MPV 9.50 (7.40-12.00) fL Neut % (Auto) 92.3 H (48.0-80.0) % Lymph % (Auto) 6.2 L (16.0-40.0) % Haines % (Auto) 1.4 (0.0-15.0) % Eos % (Auto) 0.1 (0.0-7.0) % Baso % (Auto) 0.0 (0.0-1.5) % Neut # (Auto) 7.2 H (1.4-5.7) K/uL Lymph # (Auto) 0.5 L (0.6-2.4) K/uL Haines # (Auto) 0.1 (0.0-0.8) K/uL Eos # (Auto) 0.0 (0.0-0.7) K/uL Baso # (Auto) 0.0 (0.0-0.1) K/uL Nucleated RBC % 0.0 /100WBC Nucleated RBCs # 0 K/uL INR D-Dimer, Quantitative (0.0-0.50) mg/L FEU Lactate (0.20-2.00) mmol/L Sodium 142 (136-145) mmol/L Potassium 4.0 (3.5-5.1) mmol/L Chloride 104 (98-107) mmol/L Carbon Dioxide 27.4 (21.0-32.0) mmol/L BUN 13 (7.0-18.0) mg/dL Creatinine 0.7 (0.6-1.0) mg/dL Est Cr Clr Drug Dosing TNP Estimated GFR (MDRD) > 60.0 ml/min Glucose 167 H (74-106) mg/dL Calcium 8.6 (8.5-10.1) mg/dL Total Bilirubin (0.2-1.0) mg/dL AST (15-37) IU/L ALT (14-63) IU/L Alkaline Phosphatase (46-116) U/L B-Natriuretic Peptide (<100) PG/ML Total Protein (6.4-8.2) g/dL Albumin (3.4-5.0) g/dL Globulin (2.6-4.0) g/dL Albumin/Globulin Ratio (0.9-1.6) Urine Color YELLOW Urine Appearance CLEAR Urine pH 5.0 (5.0-8.0) Ur Specific [facility] 1.020 (1.001-1.035) Urine Protein TRACE H (NEGATIVE) mg/dL Urine Glucose (UA) NEGATIVE (NEGATIVE) mg/dL Urine Ketones 15 H (NEGATIVE) mg/dL Urine Occult Blood TRACE-INTACT H (NEGATIVE) Urine Nitrite NEGATIVE (NEGATIVE) Urine Bilirubin NEGATIVE (NEGATIVE) Urine Urobilinogen 0.2 (<2.0) EU/dL Ur Leukocyte Esterase NEGATIVE (NEGATIVE) Urine RBC 0-2 (0-2/HPF) Urine WBC 0-1 (0-5/HPF) Ur Epithelial Cells RARE (NONE-FEW) Urine Bacteria RARE (NEGATIVE) Result Diagrams: 02/20/19 05:55 02/20/19 05:55 - Problem List (1) Acute respiratory distress SNOMED Code(s): 260355918 ICD Code: R06.03 - ACUTE RESPIRATORY DISTRESS Status: Acute Current Visit : No (2) Pulmonary emboli SNOMED Code(s): 94804877 ICD Code: I26.99 - OTHER PULMONARY EMBOLISM WITHOUT ACUTE COR PULMONALE Status: Acute Current Visit: Yes Qualifiers: Pulmonary embolism type: multiple subsegmental (without acute cor pulmonale) Qualified Code(s): I26.94 - Multiple subsegmental pulmonary emboli without acute cor pulmonale (3) Gram-negative bacterial infection SNOMED Code(s): 714912900 ICD Code: A49.9 - BACTERIAL INFECTION, UNSPECIFIED Status: Acute Current Visit: Yes (4) Hypoxia SNOMED Code(s): 450383598 ICD Code: R09.02 - HYPOXEMIA Status: Acute Priority: High Current Visit : No Problem Details: Worsening (5) Glioblastoma SNOMED Code(s): 87352441157883, 23096638, 95596540662611 ICD Code: C71.9 - MALIGNANT NEOPLASM OF BRAIN, UNSPECIFIED Status: Acute Current Visit: No (6) History of craniotomy SNOMED Code(s): 174867203, 473726711 ICD Code: Z98.890 - OTHER SPECIFIED POSTPROCEDURAL STATES Status: Chronic Priority: Medium Current Visit: No (7) Poor short-term memory SNOMED Code(s): 306032249 ICD Code: R41.3 - OTHER AMNESIA Status: Chronic Current Visit: No (8) Oxygen dependent SNOMED Code(s): 167198632598 ICD Code: Z99.81 - DEPENDENCE ON SUPPLEMENTAL OXYGEN Status: Acute Current Visit: Yes Problem List Initiated/Reviewed/Updated: Yes Orders Last 24hrs: Active Orders 24 hr Category Date Time Status Admission Status [Patient Status] [ADT] Stat ADT 02/20/19 02:23 Active EKG Documentation Completion [RC] STAT Care 02/20/19 00:03 Active RT Aerosol Therapy [RC] ASDIRECTED Care 02/19/19 23:36 Active Regular Diet [DIET] Diet 02/20/19 Breakfast Active CULTURE BLOOD [BC] Stat Lab 02/19/19 23:36 Received Acetaminophen [Tylenol Extra Strength] Med 02/20/19 03:53 Active 1,000 mg PO Q6HR PRN Bisacodyl [Dulcolax] Med 02/20/19 03:53 Active 10 mg RECTAL Q24H PRN Budesonide [Pulmicort] Med 02/20/19 03:53 Active 0.5 mg NEB BID PRN Famotidine [Pepcid] Med 02/20/19 21:00 Active 20 mg PO BEDTIME LORazepam [Ativan] Med 02/20/19 04:15 Active 0.5 mg PO Q8H PRN Levalbuterol HCl [Xopenex] Med 02/20/19 03:53 Active 1.25 mg INH Q8HR PRN Levothyroxine Med 02/20/19 07:30 Pending 150 mcg PO ACBREAKFAST Levothyroxine Med 02/20/19 09:00 Active 75 mcg PO DAILY Magnesium Hydroxide [Milk of Magnesia] Med 02/20/19 03:53 Active 30 ml PO DAILY PRN Omeprazole Med 02/20/19 07:30 Active 20 mg PO ACBREAKFAST Ondansetron [Zofran ODT] Med 02/20/19 03:53 Active 4 mg PO Q6HR PRN Patient's Own Medication [Ptom] Med 02/20/19 21:00 Active 1 each PO BEDTIME PRN Patient's Own Medication [Ptom] Med 02/20/19 03:53 Active 1 each PO Q6HR PRN Sodium Chloride 0.9% [Normal Saline] 1,000 ml Med 02/20/19 02:30 Active IV STAT amLODIPine [Norvasc] Med 02/20/19 09:00 Active 10 mg PO DAILY levETIRAcetam [Keppra] Med 02/20/19 09:00 Active 1,000 mg PO BID oxyCODONE Med 02/20/19 03:53 Active 5 mg PO Q4H PRN Blood Culture x2 Reflex Set [OM.PC] Stat Oth 02/19/19 23:36 Ordered Medication Orders Acetaminophen (Tylenol Extra Strength) 1,000 mg PO Q6HR PRN PRN Reason: Pain Amlodipine Besylate (Norvasc) 10 mg PO DAILY BARBARA Bisacodyl (Dulcolax) 10 mg RECTAL Q24H PRN PRN Reason: Constipation Budesonide (Pulmicort) 0.5 mg NEB BID PRN PRN Reason: Dyspnea Famotidine (Pepcid) 20 mg PO BEDTIME BARBARA Sodium Chloride (Normal Saline) 1,000 mls @ 125 mls/hr IV STAT BARBARA Last Admin: 02/20/19 03:19 Dose: 125 mls/hr Infusion: 02/20/19 03:19 Dose: 125 mls/hr Admin: 02/20/19 02:59 Dose: 125 mls/hr Levalbuterol HCl (Xopenex) 1.25 mg INH Q8HR PRN PRN Reason: Dyspnea Levetiracetam (Keppra) 1,000 mg PO BID BARBARA Levothyroxine Sodium (Levothyroxine) 75 mcg PO DAILY BARBARA Levothyroxine Sodium (Levothyroxine) 150 mcg PO ACBREAKFAST BARBARA Lorazepam (Ativan) 0.5 mg PO Q8H PRN PRN Reason: Anxiety Magnesium Hydroxide (Milk Of Magnesia) 30 ml PO DAILY PRN PRN Reason: Constipation Omeprazole (Omeprazole) 20 mg PO ACBREAKFAST [facility] Last Admin: 02/20/19 07:35 Dose: 20 mg Ondansetron HCl (Zofran Odt) 4 mg PO Q6HR PRN PRN Reason: Nausea Oxycodone HCl (Oxycodone) 5 mg PO Q4H PRN PRN Reason: Pain Calcium Carbonate/Vitamin D3 [Calcium Carb 500 Mg] 1,000 1 each PO Q6HR PRN PRN Reason: Heartburn Melatonin [Melatonin (] 6 Mg) 1 each PO BEDTIME PRN PRN Reason: Insomnia Assessment/Plan Comment:: This 48 year old female admitted with moderate to severe pulmonary emboli and acute respiratory distress. 1. Pulmonary emboli: Given Lovenox in the ED, will start Heparin drip 12 hrs after dose. Monitor on telemetry and continuous pulse ox. 2. Possible gram negative infection: Ground glass opacities noted on CT, Will start Levaquin and Zosyn. Monitor. Hx of recent intubation and hospitalization for pneumonia. BC pending. Oxygen at home remains at baseline. 3. Glioblastoma: Continue home medications, including Keppra and Oxycodone. reports she appears at her baseline mentation. She was conversational this morning when arrived. Dispo: Saturday to [place] if stable, patient discharged from [facility]. Family wants her to return to [place] so Saturday at earliest for discharge. Discussed at length code status with . He very well understands her poor prognosis. Patient's goal is to live. He would like to be called immediately if she deteriorates. She will remain FULL CODE at this time. - Mortality Measure Prognosis:: Good
[2019-02-20] MEDS: amLODIPine 5 MG Tab PO SCH (11:10)
[2019-02-20] MEDS: levETIRAcetam 500 MG Tab PO SCH ×2 (11:10→20:22)
[2019-02-20] MEDS ORDERED: Levofloxacin/Dextrose 5%-Water 750 MG in Premix Bag 1 BAG IV SCH (12:35)
[2019-02-20] MEDS ORDERED: Piperacillin/Tazobactam 4.5 GM in Sodium Chloride 0.9% 100 ML IV SCH (12:35)
[2019-02-20] MEDS ORDERED: Heparin Sodium 5,000 Units/ML Vial IVPUSH ONE (13:30)
[2019-02-20] MEDS: Heparin Sod,Pork In 0.45% Nacl 25,000 UNIT/500 ML IV.SOLN IV SCH (14:00)
[2019-02-20] MEDS: Levofloxacin/Dextrose 5%-Water 750 MG in Premix Bag 1 BAG IV SCH (15:24)
--- NOTE | 2019-02-20 19:21 | PCM.SN ---
- Free Text/Narrative Note: VAncomycin was ordered due to cultures growing gram positive cocci.
[2019-02-20] MEDS ORDERED: Vancomycin 2 GM in Sodium Chloride 0.9% 500 ML IV ONE (20:00)
[2019-02-20] MEDS: Piperacillin/Tazobactam 4.5 GM in Sodium Chloride 0.9% 100 ML IV SCH (20:20)
[2019-02-20] MEDS: Famotidine 20 MG Tab PO SCH (20:42)
[2019-02-20] MEDS ORDERED: MELATONIN 6 MG PO PRN (21:00)
[2019-02-21] MEDS: Heparin Sod,Pork In 0.45% Nacl 25,000 UNIT/500 ML IV.SOLN IV SCH ×2 (00:38→20:47)
[2019-02-21] MEDS: Sodium Chloride 0.9% 1,000 ML IV SCH ×2 (00:48→12:04)
[2019-02-21] MEDS: Piperacillin/Tazobactam 4.5 GM in Sodium Chloride 0.9% 100 ML IV SCH ×4 (02:03→21:38)
[2019-02-21] MEDS ORDERED: Levothyroxine 150 MCG Tab PO SCH (07:30)
[2019-02-21 08:51] LABS: BLOOD UREA NITROGEN,BUN 10 mg/dL (7.0-18.0); CHLORIDE,CL 105 mmol/L (98-107); GLUCOSE RANDOM 110 mg/dL (74-106); POTASSIUM,K 3.2 mmol/L (3.5-5.1); SODIUM,NA 140 mmol/L (136-145)
--- NOTE | 2019-02-21 08:52 | PCM.PN ---
- General Info Date of Service: 02/21/19 Admission Dx/Problem (Free Text): Admission Diagnosis/Problem Admission Diagnosis/Problem Pulmonary embolism Subjective Update: The patient is a 48-year-old lady who has a past medical history of malignant glioblastoma. The patient was admitted on February 20, 2019. The patient had been admitted from [facility] and they noted that she had been tachycardic, short of breath and fevers. The patient was found to be in acute respiratory distress and also had CT scan which showed multiple pulmonary emboli likely secondary to her malignancy. The patient also has been noted to have gram-positive cocci in clusters. She is currently on vancomycin. The patient today is somewhat lethargic. She will respond by saying yes or no. The patient has denied any pain. - Review of Systems General: Reports: Weakness, Malaise HEENT: Reports: No Symptoms Pulmonary: Reports: No Symptoms Cardiovascular: Reports: No Symptoms Gastrointestinal: Reports: No Symptoms Genitourinary: Reports: No Symptoms Musculoskeletal: Reports: No Symptoms Skin: Reports: No Symptoms Neurological: Reports: Confusion, Headache Psychiatric: Reports: Confusion - Patient Data Vitals - Most Recent: Last Vital Signs Temp 37.2 C 02/21/19 05:00 Pulse 109 H 02/21/19 05:00 Resp 23 H 02/21/19 05:00 BP 117/75 02/21/19 05:00 Pulse Ox 94 L 02/21/19 05:00 Weight - Most Recent: 125.7 kg I&O - Last 24 Hours: Intake & Output 02/20/19 02/21/19 02/21/19 22:59 06:59 14:59 Intake Total 1050 Output Total 525 Balance 525 Lab Results Last 24 Hours: Laboratory Results - last 24 hr 02/20/19 02/20/19 02/21/19 Range/Units 12:56 20:13 02:00 WBC (4.0-11.0) K/uL RBC (4.30-5.90) M/uL Hgb (12.0-16.0) g/dL Hct (36.0-46.0) % MCV (80.0-98.0) fL MCH (27.0-32.0) pg MCHC (31.0-37.0) g/dL RDW Std Deviation (28.0-62.0) fl RDW Coeff of Amanda (11.0-15.0) % Plt Count (150-400) K/uL MPV (7.40-12.00) fL Neut % (Auto) (48.0-80.0) % Lymph % (Auto) (16.0-40.0) % King % (Auto) (0.0-15.0) % Eos % (Auto) (0.0-7.0) % Baso % (Auto) (0.0-1.5) % Neut # (Auto) (1.4-5.7) K/uL Lymph # (Auto) (0.6-2.4) K/uL King # (Auto) (0.0-0.8) K/uL Eos # (Auto) (0.0-0.7) K/uL Baso # (Auto) (0.0-0.1) K/uL Nucleated RBC % /100WBC Nucleated RBCs # K/uL APTT 32.1 H > 250.0 H 61.3 H (18.6-31.3) SEC 02/21/19 Range/Units 08:25 WBC 7.94 (4.0-11.0) K/uL RBC 3.89 L (4.30-5.90) M/uL Hgb 10.8 L (12.0-16.0) g/dL Hct 35.0 L (36.0-46.0) % MCV 90.0 (80.0-98.0) fL MCH 27.8 (27.0-32.0) pg MCHC 30.9 L (31.0-37.0) g/dL RDW Std Deviation 48.9 (28.0-62.0) fl RDW Coeff of Amanda 15 (11.0-15.0) % Plt Count 363 (150-400) K/uL MPV 9.40 (7.40-12.00) fL Neut % (Auto) 79.0 (48.0-80.0) % Lymph % (Auto) 14.5 L (16.0-40.0) % King % (Auto) 6.4 (0.0-15.0) % Eos % (Auto) 0.1 (0.0-7.0) % Baso % (Auto) 0.0 (0.0-1.5) % Neut # (Auto) 6.3 H (1.4-5.7) K/uL Lymph # (Auto) 1.2 (0.6-2.4) K/uL King # (Auto) 0.5 (0.0-0.8) K/uL Eos # (Auto) 0.0 (0.0-0.7) K/uL Baso # (Auto) 0.0 (0.0-0.1) K/uL Nucleated RBC % 0.0 /100WBC Nucleated RBCs # 0 K/uL APTT (18.6-31.3) SEC Ward Results Last 24 Hours: Microbiology 02/20/19 00:30 Aerobic Blood Culture - Preliminary Blood - Venous - Lab Draw Anaerobic Blood Culture - Preliminary 02/20/19 00:15 Aerobic Blood Culture - Preliminary Blood - Venous NO GROWTH AFTER 1 DAY Anaerobic Blood Culture - Preliminary NO GROWTH AFTER 1 DAY Med Orders - Current: Current Medications Acetaminophen (Tylenol Extra Strength) 1,000 mg PO Q6HR PRN PRN Reason: Pain Last Admin: 02/20/19 16:43 Dose: 1,000 mg Amlodipine Besylate (Norvasc) 10 mg PO DAILY [facility] Last Admin: 02/20/19 11:10 Dose: 10 mg Bisacodyl (Dulcolax) 10 mg RECTAL Q24H PRN PRN Reason: Constipation Budesonide (Pulmicort) 0.5 mg NEB BID PRN PRN Reason: Dyspnea Famotidine (Pepcid) 20 mg PO BEDTIME [facility] Last Admin: 02/20/19 20:42 Dose: Not Given Sodium Chloride (Normal Saline) 1,000 mls @ 125 mls/hr IV STAT [facility] Last Admin: 02/21/19 00:48 Dose: 125 mls/hr Heparin Sodium/Sodium Chloride (Heparin-1/2ns 25,000 Units/500) 25,000 unit in 500 mls @ 45.252 mls/hr IV TITRATE [facility]; Protocol Last Admin: 02/21/19 00:38 Dose: 15 units/kg/hr, 37.71 mls/hr Piperacillin Sod/Tazobactam (Sod 4.5 gm/ Sodium Chloride) 100 mls @ 100 mls/hr IV Q6H [facility] Last Admin: 02/21/19 02:03 Dose: 100 mls/hr Levofloxacin/Dextrose 750 mg/ (Premix) 150 mls @ 100 mls/hr IV Q24H [facility] Last Admin: 02/20/19 15:24 Dose: 100 mls/hr Vancomycin HCl 1.5 gm/ Premix 300 mls @ 300 mls/hr IV Q12H [facility] Levalbuterol HCl (Xopenex) 1.25 mg INH Q8HR PRN PRN Reason: Dyspnea Levetiracetam (Keppra) 1,000 mg PO BID [facility] Last Admin: 02/20/19 20:22 Dose: 1,000 mg Levothyroxine Sodium (Levothyroxine) 150 mcg PO ASDIRECTED [facility] Levothyroxine Sodium (Levothyroxine) 75 mcg PO ASDIRECTED [facility] Lorazepam (Ativan) 0.5 mg PO Q8H PRN PRN Reason: Anxiety Magnesium Hydroxide (Milk Of Magnesia) 30 ml PO DAILY PRN PRN Reason: Constipation Omeprazole (Omeprazole) 20 mg PO ACBREAKFAST [facility] Last Admin: 02/20/19 07:35 Dose: 20 mg Ondansetron HCl (Zofran Odt) 4 mg PO Q6HR PRN PRN Reason: Nausea Oxycodone HCl (Oxycodone) 5 mg PO Q4H PRN PRN Reason: Pain Calcium Carbonate/Vitamin D3 [Calcium Carb 500 Mg] 1,000 1 each PO Q6HR PRN PRN Reason: Heartburn Melatonin [Melatonin (] 6 Mg) 1 each PO BEDTIME PRN PRN Reason: Insomnia Vancomycin HCl (Pharmacy To Dose - Vancomycin) 1 dose .XX ASDIRECTED [facility] Discontinued Medications Albuterol/Ipratropium (Duoneb 3.0-0.5 Mg/3 Ml) 3 ml NEB ONETIME ONE Stop: 02/19/19 23:37 Last Admin: 02/20/19 00:05 Dose: 3 ml Enoxaparin Sodium (Lovenox) 125 mg SUBCUT ONETIME ONE Stop: 02/20/19 02:03 Last Admin: 02/20/19 02:11 Dose: 125 mg Heparin Sodium (Porcine) (Heparin Sodium) 5,000 units IVPUSH .BOLUS ONE Stop: 02/20/19 13:31 Last Admin: 02/20/19 14:04 Dose: 5,000 units Sodium Chloride (Normal Saline) 1,000 mls @ 999 mls/hr IV STAT ONE Stop: 02/20/19 00:36 Last Admin: 02/20/19 00:15 Dose: 999 mls/hr Ceftriaxone Sodium/Dextrose 1 (gm/ Premix) 50 mls @ 100 mls/hr IV ONETIME ONE Stop: 02/20/19 02:52 Last Admin: 02/20/19 03:19 Dose: 100 mls/hr Levofloxacin/Dextrose 750 mg/ (Premix) 150 mls @ 100 mls/hr IV Q24H [facility] Last Admin: 02/20/19 18:21 Dose: Not Given Piperacillin Sod/Tazobactam (Sod 4.5 gm/ Sodium Chloride) 100 mls @ 100 mls/hr IV Q6H [facility] Last Admin: 02/20/19 14:16 Dose: 100 mls/hr Vancomycin HCl 2 gm/ Sodium (Chloride) 500 mls @ 333.333 mls/hr IV ONETIME ONE Stop: 02/20/19 21:29 Last Admin: 02/20/19 21:31 Dose: 333.333 mls/hr Iopamidol (Isovue Multipack-370 (76%)) 100 ml IVPUSH ONETIME STA Stop: 02/20/19 01:46 Last Admin: 02/20/19 01:46 Dose: 100 ml Levothyroxine Sodium (Levothyroxine) 75 mcg PO DAILY [facility] Last Admin: 02/20/19 11:11 Dose: 75 mcg Methylprednisolone Sodium Succinate (Solu-Medrol) 125 mg IVPUSH ONETIME ONE Stop: 02/19/19 23:37 Last Admin: 02/20/19 00:25 Dose: 125 mg - Exam Quality Assessment: Supplemental Oxygen General: No Acute Distress, Sedated, Lethargic HEENT: Pupils Equal, Pupils Reactive, Other (Surgical changes scalp) Neck: Supple, Trachea Midline Lungs: Normal Respiratory Effort, Crackles Cardiovascular: Regular Rate, Regular Rhythm GI/Abdominal Exam: Normal Bowel Sounds, Non-Tender, No Distention, Other (Obese) . No: Guarding, Rigid, Rebound Back Exam: No: Normal Inspection (Age appropriate) Extremities: Normal Inspection, No Pedal Edema Skin: Warm, Dry, Intact Neurological: No New Focal Deficit. No: Normal Gait Psy/Mental Status: Normal Affect. No: Alert (Lethargic) - Problem List & Annotations (1) Gram-negative bacterial infection SNOMED Code(s): 271951923 Code(s): A49.9 - BACTERIAL INFECTION, UNSPECIFIED Status: Acute Priority : High Current Visit: Yes (2) Oxygen dependent SNOMED Code(s): 772740923799 Code(s): Z99.81 - DEPENDENCE ON SUPPLEMENTAL OXYGEN Status: Acute Priority: High Current Visit: Yes (3) Pulmonary emboli SNOMED Code(s): 40863117 Code(s): I26.99 - OTHER PULMONARY EMBOLISM WITHOUT ACUTE COR PULMONALE Status: Acute Priority: High Current Visit: Yes Qualifiers: Pulmonary embolism type: multiple subsegmental (without acute cor pulmonale) Qualified Code(s): I26.94 - Multiple subsegmental pulmonary emboli without acute cor pulmonale (4) Acute respiratory distress SNOMED Code(s): 720992485 Code(s): R06.03 - ACUTE RESPIRATORY DISTRESS Status: Resolved Priority: High Current Visit: Yes (5) Hypoxia SNOMED Code(s): 133699257 Code(s): R09.02 - HYPOXEMIA Status: Chronic Priority: High Current Visit: Yes Annotation/Comment:: Worsening (6) Glioblastoma multiforme of brain SNOMED Code(s): 773117486 Code(s): C71.9 - MALIGNANT NEOPLASM OF BRAIN, UNSPECIFIED Status: Chronic Priority: High Current Visit: Yes (7) Poor short-term memory SNOMED Code(s): 400285857 Code(s): R41.3 - OTHER AMNESIA Status: Chronic Priority: High Current Visit: Yes - Problem List Review Problem List Initiated/Reviewed/Updated: Yes - Plan Plan:: The patient is a 48-year-old lady who is rather complicated. She does have malignant glioblastoma of the brain. The patient will be kept on heparin for treatment for her pulmonary emboli. She is also oxygen dependent and this will be continued. The patient also has home medication including Keppra and oxycodone which will be continued. The patient has been on Levaquin and Zosyn and she was started on vancomycin secondary to her gram-positive cocci in clusters. The antibiotics will be changed as necessary depending upon cultures. The patient is currently in a full resuscitative code and this will be honored as the patient's wishes. The patient does have a very poor prognosis. Repeat laboratory studies have been ordered.
[2019-02-21] MEDS: VANCOMYCIN/WATER FOR INJ (PEG) 1.5 GM in Premix Bag 1 BAG IV SCH ×2 (09:23→20:05)
[2019-02-21] MEDS: amLODIPine 5 MG Tab PO SCH (09:24)
[2019-02-21] MEDS: levETIRAcetam 500 MG Tab PO SCH ×2 (09:24→21:42)
[2019-02-21] MEDS: Omeprazole 20 MG Cap.CR PO SCH (09:24)
[2019-02-21] MEDS: Levofloxacin/Dextrose 5%-Water 750 MG in Premix Bag 1 BAG IV SCH (16:14)
[2019-02-21] MEDS: Famotidine 20 MG Tab PO SCH (21:42)
[2019-02-21] MEDS ORDERED: D5 1/2 NS w/ 20 mEq/L KCl 1,000 ML IV ONE (23:15)
[2019-02-22] MEDS: Piperacillin/Tazobactam 4.5 GM in Sodium Chloride 0.9% 100 ML IV SCH ×2 (01:21→08:11)
[2019-02-22 07:51] LABS: BLOOD UREA NITROGEN,BUN 5 mg/dL (7.0-18.0); CARBON DIOXIDE,CO2 30.7 mmol/L (21.0-32.0); CHLORIDE,CL 107 mmol/L (98-107); GLUCOSE RANDOM 123 mg/dL (74-106); SODIUM,NA 145 mmol/L (136-145)
--- NOTE | 2019-02-22 08:06 | PCM.PN ---
- General Info Date of Service: 02/22/19 Admission Dx/Problem (Free Text): Admission Diagnosis/Problem Admission Diagnosis/Problem Pulmonary embolism, pneumonia, bacteremia, malignant glioblastoma Subjective Update: The patient is a chronically ill 48-year-old lady has a past medical history of malignant glioblastoma. The patient today has been somewhat lethargic. The patient is currently being treated for pulmonary emboli as well as pneumonia. Blood cultures previously noted to be gram-positive cocci in cluster had shown staph hominis resistant only to erythromycin. The patient appears comfortable. Functional Status: Reports: Pain Controlled - Review of Systems General: Reports: Weakness, Fatigue HEENT: Reports: No Symptoms Pulmonary: Reports: No Symptoms Cardiovascular: Reports: No Symptoms Gastrointestinal: Reports: No Symptoms Genitourinary: Reports: No Symptoms Musculoskeletal: Reports: No Symptoms Skin: Reports: No Symptoms Neurological: Reports: Pre-Existing Deficit, Other (Short-term memory impairment ) Psychiatric: Reports: No Symptoms - Patient Data Vitals - Most Recent: Last Vital Signs Temp 36.5 C 02/22/19 03:15 Pulse 101 H 02/22/19 03:15 Resp 20 02/22/19 03:15 BP 108/60 02/22/19 03:15 Pulse Ox 92 L 02/22/19 03:15 Weight - Most Recent: 125.7 kg I&O - Last 24 Hours: Intake & Output 02/21/19 02/22/19 02/22/19 22:59 06:59 14:59 Intake Total 1927 2463 Output Total 400 2450 Balance 1527 13 Lab Results Last 24 Hours: Laboratory Results - last 24 hr 02/21/19 02/21/19 02/21/19 Range/Units 08:25 08:25 08:25 WBC 7.94 (4.0-11.0) K/uL RBC 3.89 L (4.30-5.90) M/uL Hgb 10.8 L (12.0-16.0) g/dL Hct 35.0 L (36.0-46.0) % MCV 90.0 (80.0-98.0) fL MCH 27.8 (27.0-32.0) pg MCHC 30.9 L (31.0-37.0) g/dL RDW Std Deviation 48.9 (28.0-62.0) fl RDW Coeff of Amanda 15 (11.0-15.0) % Plt Count 363 (150-400) K/uL MPV 9.40 (7.40-12.00) fL Neut % (Auto) 79.0 (48.0-80.0) % Lymph % (Auto) 14.5 L (16.0-40.0) % Fajardo % (Auto) 6.4 (0.0-15.0) % Eos % (Auto) 0.1 (0.0-7.0) % Baso % (Auto) 0.0 (0.0-1.5) % Neut # (Auto) 6.3 H (1.4-5.7) K/uL Lymph # (Auto) 1.2 (0.6-2.4) K/uL Fajardo # (Auto) 0.5 (0.0-0.8) K/uL Eos # (Auto) 0.0 (0.0-0.7) K/uL Baso # (Auto) 0.0 (0.0-0.1) K/uL Nucleated RBC % 0.0 /100WBC Nucleated RBCs # 0 K/uL APTT 87.0 H (18.6-31.3) SEC Sodium 140 (136-145) mmol/L Potassium 3.2 L (3.5-5.1) mmol/L Chloride 105 (98-107) mmol/L Carbon Dioxide 27.0 (21.0-32.0) mmol/L BUN 10 (7.0-18.0) mg/dL Creatinine 0.6 (0.6-1.0) mg/dL Est Cr Clr Drug Dosing 139.45 mL/min Estimated GFR (MDRD) > 60.0 ml/min Glucose 110 H (74-106) mg/dL Calcium 8.3 L (8.5-10.1) mg/dL Magnesium (1.8-2.4) mg/dL Vancomycin Trough (5.0-10.0) ug/mL 02/21/19 02/21/19 02/22/19 Range/Units 14:45 20:02 02:15 WBC (4.0-11.0) K/uL RBC (4.30-5.90) M/uL Hgb (12.0-16.0) g/dL Hct (36.0-46.0) % MCV (80.0-98.0) fL MCH (27.0-32.0) pg MCHC (31.0-37.0) g/dL RDW Std Deviation (28.0-62.0) fl RDW Coeff of Amanda (11.0-15.0) % Plt Count (150-400) K/uL MPV (7.40-12.00) fL Neut % (Auto) (48.0-80.0) % Lymph % (Auto) (16.0-40.0) % Fajardo % (Auto) (0.0-15.0) % Eos % (Auto) (0.0-7.0) % Baso % (Auto) (0.0-1.5) % Neut # (Auto) (1.4-5.7) K/uL Lymph # (Auto) (0.6-2.4) K/uL Fajardo # (Auto) (0.0-0.8) K/uL Eos # (Auto) (0.0-0.7) K/uL Baso # (Auto) (0.0-0.1) K/uL Nucleated RBC % /100WBC Nucleated RBCs # K/uL APTT 78.8 H 64.5 H 61.8 H (18.6-31.3) SEC Sodium (136-145) mmol/L Potassium (3.5-5.1) mmol/L Chloride (98-107) mmol/L Carbon Dioxide (21.0-32.0) mmol/L BUN (7.0-18.0) mg/dL Creatinine (0.6-1.0) mg/dL Est Cr Clr Drug Dosing mL/min Estimated GFR (MDRD) ml/min Glucose (74-106) mg/dL Calcium (8.5-10.1) mg/dL Magnesium (1.8-2.4) mg/dL Vancomycin Trough (5.0-10.0) ug/mL 02/22/19 02/22/19 02/22/19 Range/Units 07:30 07:30 07:30 WBC 6.53 (4.0-11.0) K/uL RBC 4.57 (4.30-5.90) M/uL Hgb 12.7 (12.0-16.0) g/dL Hct 40.9 (36.0-46.0) % MCV 89.5 (80.0-98.0) fL MCH 27.8 (27.0-32.0) pg MCHC 31.1 (31.0-37.0) g/dL RDW Std Deviation 48.7 (28.0-62.0) fl RDW Coeff of Amanda 15 (11.0-15.0) % Plt Count 398 (150-400) K/uL MPV 9.30 (7.40-12.00) fL Neut % (Auto) 72.4 (48.0-80.0) % Lymph % (Auto) 18.8 (16.0-40.0) % Fajardo % (Auto) 8.3 (0.0-15.0) % Eos % (Auto) 0.3 (0.0-7.0) % Baso % (Auto) 0.2 (0.0-1.5) % Neut # (Auto) 4.7 (1.4-5.7) K/uL Lymph # (Auto) 1.2 (0.6-2.4) K/uL Fajardo # (Auto) 0.5 (0.0-0.8) K/uL Eos # (Auto) 0.0 (0.0-0.7) K/uL Baso # (Auto) 0.0 (0.0-0.1) K/uL Nucleated RBC % 0.0 /100WBC Nucleated RBCs # 0 K/uL APTT 60.5 H (18.6-31.3) SEC Sodium (136-145) mmol/L Potassium (3.5-5.1) mmol/L Chloride (98-107) mmol/L Carbon Dioxide (21.0-32.0) mmol/L BUN (7.0-18.0) mg/dL Creatinine (0.6-1.0) mg/dL Est Cr Clr Drug Dosing mL/min Estimated GFR (MDRD) ml/min Glucose (74-106) mg/dL Calcium (8.5-10.1) mg/dL Magnesium (1.8-2.4) mg/dL Vancomycin Trough 13.1 H (5.0-10.0) ug/mL 10/20/19 Range/Units 07:30 WBC (4.0-11.0) K/uL RBC (4.30-5.90) M/uL Hgb (12.0-16.0) g/dL Hct (36.0-46.0) % MCV (80.0-98.0) fL MCH (27.0-32.0) pg MCHC (31.0-37.0) g/dL RDW Std Deviation (28.0-62.0) fl RDW Coeff of Amanda (11.0-15.0) % Plt Count (150-400) K/uL MPV (7.40-12.00) fL Neut % (Auto) (48.0-80.0) % Lymph % (Auto) (16.0-40.0) % Fajardo % (Auto) (0.0-15.0) % Eos % (Auto) (0.0-7.0) % Baso % (Auto) (0.0-1.5) % Neut # (Auto) (1.4-5.7) K/uL Lymph # (Auto) (0.6-2.4) K/uL Fajardo # (Auto) (0.0-0.8) K/uL Eos # (Auto) (0.0-0.7) K/uL Baso # (Auto) (0.0-0.1) K/uL Nucleated RBC % /100WBC Nucleated RBCs # K/uL APTT (18.6-31.3) SEC Sodium 145 (136-145) mmol/L Potassium 3.0 L (3.5-5.1) mmol/L Chloride 107 (98-107) mmol/L Carbon Dioxide 30.7 (21.0-32.0) mmol/L BUN 5 L (7.0-18.0) mg/dL Creatinine 0.7 (0.6-1.0) mg/dL Est Cr Clr Drug Dosing 119.53 mL/min Estimated GFR (MDRD) > 60.0 ml/min Glucose 123 H (74-106) mg/dL Calcium 8.1 L (8.5-10.1) mg/dL Magnesium 1.8 (1.8-2.4) mg/dL Vancomycin Trough (5.0-10.0) ug/mL Ward Results Last 24 Hours: Microbiology 10/18/19 00:15 Aerobic Blood Culture - Preliminary Blood - Venous NO GROWTH AFTER 2 DAYS Anaerobic Blood Culture - Preliminary NO GROWTH AFTER 2 DAYS 02/20/19 00:30 Aerobic Blood Culture - Preliminary Blood - Venous - Lab Draw Anaerobic Blood Culture - Preliminary Med Orders - Current: Current Medications Acetaminophen (Tylenol Extra Strength) 1,000 mg PO Q6HR PRN PRN Reason: Pain Last Admin: 02/20/19 16:43 Dose: 1,000 mg Amlodipine Besylate (Norvasc) 10 mg PO DAILY [facility] Last Admin: 02/21/19 09:24 Dose: 10 mg Bisacodyl (Dulcolax) 10 mg RECTAL Q24H PRN PRN Reason: Constipation Budesonide (Pulmicort) 0.5 mg NEB BID PRN PRN Reason: Dyspnea Famotidine (Pepcid) 20 mg PO BEDTIME [facility] Last Admin: 02/21/19 21:42 Dose: 20 mg Sodium Chloride (Normal Saline) 1,000 mls @ 125 mls/hr IV STAT [facility] Last Admin: 02/21/19 12:04 Dose: 125 mls/hr Heparin Sodium/Sodium Chloride (Heparin-1/2ns 25,000 Units/500) 25,000 unit in 500 mls @ 45.252 mls/hr IV TITRATE [facility]; Protocol Last Titration: 02/22/19 02:55 Dose: 11 units/kg/hr, 27.654 mls/hr Piperacillin Sod/Tazobactam (Sod 4.5 gm/ Sodium Chloride) 100 mls @ 100 mls/hr IV Q6H [facility] Last Admin: 02/22/19 01:21 Dose: 100 mls/hr Levofloxacin/Dextrose 750 mg/ (Premix) 150 mls @ 100 mls/hr IV Q24H [facility] Last Admin: 02/21/19 16:14 Dose: 100 mls/hr Vancomycin HCl 1.5 gm/ Premix 300 mls @ 300 mls/hr IV Q12H [facility] Last Admin: 02/21/19 20:05 Dose: 300 mls/hr Levalbuterol HCl (Xopenex) 1.25 mg INH Q8HR PRN PRN Reason: Dyspnea Levetiracetam (Keppra) 1,000 mg PO BID [facility] Last Admin: 02/21/19 21:42 Dose: 1,000 mg Levothyroxine Sodium (Levothyroxine) 150 mcg PO ASDIRECTED [facility] Last Admin: 02/21/19 10:08 Dose: 150 mcg Levothyroxine Sodium (Levothyroxine) 75 mcg PO ASDIRECTED [facility] Lorazepam (Ativan) 0.5 mg PO Q8H PRN PRN Reason: Anxiety Magnesium Hydroxide (Milk Of Magnesia) 30 ml PO DAILY PRN PRN Reason: Constipation Omeprazole (Omeprazole) 20 mg PO ACBREAKFAST [facility] Last Admin: 02/21/19 09:24 Dose: 20 mg Ondansetron HCl (Zofran Odt) 4 mg PO Q6HR PRN PRN Reason: Nausea Oxycodone HCl (Oxycodone) 5 mg PO Q4H PRN PRN Reason: Pain Calcium Carbonate/Vitamin D3 [Calcium Carb 500 Mg] 1,000 1 each PO Q6HR PRN PRN Reason: Heartburn Melatonin [Melatonin (] 6 Mg) 1 each PO BEDTIME PRN PRN Reason: Insomnia Vancomycin HCl (Pharmacy To Dose - Vancomycin) 1 dose .XX ASDIRECTED [facility] Discontinued Medications Albuterol/Ipratropium (Duoneb 3.0-0.5 Mg/3 Ml) 3 ml NEB ONETIME ONE Stop: 02/19/19 23:37 Last Admin: 02/20/19 00:05 Dose: 3 ml Enoxaparin Sodium (Lovenox) 125 mg SUBCUT ONETIME ONE Stop: 02/20/19 02:03 Last Admin: 02/20/19 02:11 Dose: 125 mg Heparin Sodium (Porcine) (Heparin Sodium) 5,000 units IVPUSH .BOLUS ONE Stop: 02/20/19 13:31 Last Admin: 02/20/19 14:04 Dose: 5,000 units Sodium Chloride (Normal Saline) 1,000 mls @ 999 mls/hr IV STAT ONE Stop: 02/20/19 00:36 Last Admin: 02/20/19 00:15 Dose: 999 mls/hr Ceftriaxone Sodium/Dextrose 1 (gm/ Premix) 50 mls @ 100 mls/hr IV ONETIME ONE Stop: 02/20/19 02:52 Last Admin: 02/20/19 03:19 Dose: 100 mls/hr Levofloxacin/Dextrose 750 mg/ (Premix) 150 mls @ 100 mls/hr IV Q24H [facility] Last Admin: 02/20/19 18:21 Dose: Not Given Piperacillin Sod/Tazobactam (Sod 4.5 gm/ Sodium Chloride) 100 mls @ 100 mls/hr IV Q6H [facility] Last Admin: 02/20/19 14:16 Dose: 100 mls/hr Vancomycin HCl 2 gm/ Sodium (Chloride) 500 mls @ 333.333 mls/hr IV ONETIME ONE Stop: 02/20/19 21:29 Last Admin: 02/20/19 21:31 Dose: 333.333 mls/hr Potassium Chloride/Dextrose/Sod Cl (D5 1/2 Ns W/ 20 Meq/L Kcl) 1,000 mls @ 125 mls/hr IV ONETIME ONE Stop: 02/22/19 07:14 Last Admin: 02/21/19 23:39 Dose: 125 mls/hr Iopamidol (Isovue Multipack-370 (76%)) 100 ml IVPUSH ONETIME STA Stop: 02/20/19 01:46 Last Admin: 02/20/19 01:46 Dose: 100 ml Levothyroxine Sodium (Levothyroxine) 75 mcg PO DAILY [facility] Last Admin: 02/20/19 11:11 Dose: 75 mcg Methylprednisolone Sodium Succinate (Solu-Medrol) 125 mg IVPUSH ONETIME ONE Stop: 02/19/19 23:37 Last Admin: 02/20/19 00:25 Dose: 125 mg - Exam Quality Assessment: Supplemental Oxygen General: No Acute Distress, Lethargic HEENT: Pupils Equal, Pupils Reactive, Other (Postsurgical changes scalp) Neck: Supple, Trachea Midline Lungs: Decreased Breath Sounds, Crackles Cardiovascular: Regular Rate, Regular Rhythm GI/Abdominal Exam: Normal Bowel Sounds, Soft, No Distention Back Exam: Normal Inspection (Age appropriate) Extremities: Normal Inspection, No Pedal Edema Skin: Warm, Dry, Intact Neurological: No New Focal Deficit Psy/Mental Status: Alert, Normal Affect, Normal Mood - Problem List & Annotations (1) Gram-negative bacterial infection SNOMED Code(s): 231889355 Code(s): A49.9 - BACTERIAL INFECTION, UNSPECIFIED Status: Acute Priority : High Current Visit: Yes (2) Oxygen dependent SNOMED Code(s): 811380035620 Code(s): Z99.81 - DEPENDENCE ON SUPPLEMENTAL OXYGEN Status: Acute Priority: High Current Visit: Yes (3) Pulmonary emboli SNOMED Code(s): 34466787 Code(s): I26.99 - OTHER PULMONARY EMBOLISM WITHOUT ACUTE COR PULMONALE Status: Acute Priority: High Current Visit: Yes Qualifiers: Pulmonary embolism type: multiple subsegmental (without acute cor pulmonale) Qualified Code(s): I26.94 - Multiple subsegmental pulmonary emboli without acute cor pulmonale (4) Acute respiratory distress SNOMED Code(s): 355674210 Code(s): R06.03 - ACUTE RESPIRATORY DISTRESS Status: Resolved Priority: High Current Visit: Yes (5) Hypoxia SNOMED Code(s): 415206699 Code(s): R09.02 - HYPOXEMIA Status: Chronic Priority: High Current Visit: Yes Annotation/Comment:: Worsening (6) Glioblastoma multiforme of brain SNOMED Code(s): 567202081 Code(s): C71.9 - MALIGNANT NEOPLASM OF BRAIN, UNSPECIFIED Status: Chronic Priority: High Current Visit: Yes (7) Poor short-term memory SNOMED Code(s): 075767433 Code(s): R41.3 - OTHER AMNESIA Status: Chronic Priority: High Current Visit: Yes - Problem List Review Problem List Initiated/Reviewed/Updated: Yes - My Orders Last 24 Hours: My Active Orders 02/22/19 14:00 aPTT [PTT,PARTIAL THROMBOPLSTIN TIME] [COAG] Q6H 02/22/19 20:00 aPTT [PTT,PARTIAL THROMBOPLSTIN TIME] [COAG] Q6H 02/23/19 02:00 aPTT [PTT,PARTIAL THROMBOPLSTIN TIME] [COAG] Q6H - Plan Plan:: The patient is a 48-year-old lady who is currently being treated with heparin for bilateral segmental pulmonary emboli. This is likely secondary to the patient's malignancy. She'll be continued on oxygen. The patient had been started on Zosyn and vancomycin secondary to the gram-positive cocci in clusters. This has subsequently grown out staph hominis. The patient's antibiotics will be changed to Levaquin as this has a low WARD. Repeat laboratory studies have been ordered. The patient's Zosyn and vancomycin a been discontinued. The patient does have a poor prognosis due to her cerebral malignancy and the patient is currently remaining in a full code resuscitation status and this will be honored. The patient will also be continued on her home medications.
[2019-02-22] MEDS ORDERED: Vancomycin 1.75 GM in Sodium Chloride 0.9% 500 ML IV SCH (08:30)
[2019-02-22] MEDS: VANCOMYCIN/WATER FOR INJ (PEG) 1.5 GM in Premix Bag 1 BAG IV SCH (08:50)
[2019-02-22] MEDS: Sodium Chloride 0.9% 1,000 ML IV SCH (09:19)
[2019-02-22] MEDS: levETIRAcetam 500 MG Tab PO SCH (11:57)
[2019-02-22] MEDS ORDERED: levETIRAcetam 1,000 MG in Sodium Chloride 0.9% 100 ML IV SCH (12:00)
[2019-02-22] MEDS: Omeprazole 20 MG Cap.CR PO SCH (12:49)
[2019-02-22] MEDS: amLODIPine 5 MG Tab PO SCH (12:50)
[2019-02-22] MEDS ORDERED: Potassium Chloride Riders 20 MEQ in Premix Bag 1 BAG IV ONE (12:59)
[2019-02-22] MEDS ORDERED: NS + KCl 20mEq/L 1,000 ML IV SCH (13:00)
--- NOTE | 2019-02-22 14:55 | PCM.SN ---
- Free Text/Narrative Note: The patient is a 48-year-old lady who is ill with malignant glioblastoma and physician was called to bedside due to alterations in patient's mental status. The patient also had been on heparin for treatment of bilateral pulmonary emboli as well as antibiotics for pneumonia. The patient today exhibits significant alteration of her mental status she responds and localizes only to deep pain stimulation. The patient also has exhibited flaccid paralysis of her left side both arm and leg along with left-sided facial droop. CT scan of the patient's head without contrast was ordered. It was suggested that the patient' s family come in to bedside. Heparin drip was held for now. There is concern for either extension of her cerebral edema due to her malignant glioblastoma or hemorrhage in the same area. Her vital signs are otherwise stable and she does exhibit some agonal breathing. I believe that neither case this represents a poor prognosis for the patient.
--- NOTE | 2019-02-22 15:39 | CT ---
INDICATIONS: Stroke code activation. History of brain tumor x2 with lobectomy. Mental status change this afternoon. TECHNIQUE: CT head without contrast. COMPARISON: CT head 01/23/2019. FINDINGS: There is new lobular increased attenuation with adjacent ill-defined low-attenuation centered about the right cerebral peduncle, thalamus and basal ganglia which measures up to 4.5 x 4.4 cm in greatest AP and transverse dimension on image 31 of series 201. There is a small amount of hemorrhage layering in the dependent portion of the right lateral ventricle. There is new dilatation of the lateral ventricles consistent with hydrocephalus. Right to left midline shift is 15 mm and was 6 mm. Right frontal lobe resection changes with associated right frontal temporoparietal craniotomy are similar in appearance. No abnormal subdural fluid collection. Posterior fossa structures as imaged are unremarkable. Bone windows show no acute or suspicious osseous abnormality. Paranasal sinuses and orbits as imaged are unremarkable. IMPRESSION: Acute intracranial hemorrhage with associated vasogenic edema centered about the right cerebral peduncle and basal ganglia causes right to left midline shift of 15 mm and hydrocephalus. A small amount of blood is layering in the dependent portion of the right lateral ventricle. Discussed with Dr. Wiggins at the time of dictation. Dictated by Jesus Pool MD @ 02/22/2019 3:36:45 PM Please note that all CT scans at this facility use dose modulation, iterative reconstruction, and/or weight-based dosing when appropriate to reduce radiation dose to as low as reasonably achievable. Dictated by: Jesus Pool MD @ 02/22/2019 15:36:56 (Electronically Signed)
--- NOTE | 2019-02-22 16:09 | PCM.SN ---
- Free Text/Narrative Note: Physician met with family with regards to patient's critical condition. CT scan of the patient's brain obtained had shown acute intracranial hemorrhage with associated vasogenic edema centered about the right cerebral peduncle and basal ganglia with a midline shift [id number] of 15 mm. Clinically, the patient has dilatation of her right pupil which is not reactive and divergent gaze which is consistent with impending cerebral herniation. The patient also has worsening hydrocephalus. The patient's overall prognosis is poor and I have advised the family of this condition and findings on CT scan. Heparin is been discontinued. The patient's resuscitation code has been changed from full code to DO NOT INTUBATE/DO NOT RESUSCITATE.
[2019-02-22] MEDS: Levofloxacin/Dextrose 5%-Water 750 MG in Premix Bag 1 BAG IV SCH (16:55)
[2019-02-22] MEDS ORDERED: Morphine 2 MG/ML Syringe IVPUSH PRN (18:29)
[2019-02-23] MEDS ORDERED: Levothyroxine 75 MCG Tab PO SCH (07:30)
[2019-02-23] MEDS ORDERED: LORazepam 2 MG/ML SDV IVPUSH PRN ×3 (08:23→14:49)
[2019-02-23] MEDS ORDERED: Morphine 2 MG/ML Syringe IVPUSH PRN (08:24)
--- NOTE | 2019-02-23 08:47 | PCM.PN ---
- General Info Date of Service: 02/23/19 Admission Dx/Problem (Free Text): Admission Diagnosis/Problem Admission Diagnosis/Problem Pulmonary embolism, pneumonia, bacteremia, malignant glioblastoma, Subjective Update: Family at bedside. Unresponsive at this time. reports she'll may be squeeze his hand, otherwise she has no response. - Patient Data Vitals - Most Recent: Last Vital Signs Temp 97.6 F 02/22/19 19:00 Pulse 107 H 02/22/19 19:00 Resp 20 02/22/19 19:00 BP 129/78 02/22/19 19:00 Pulse Ox 94 L 02/22/19 19:10 Weight - Most Recent: 125.7 kg I&O - Last 24 Hours: Intake & Output 02/22/19 02/23/19 02/23/19 22:59 06:59 14:59 Intake Total 1226 0 Output Total 5150 3600 Balance -3924 -3600 Lab Results Last 24 Hours: Laboratory Results - last 24 hr 02/22/19 02/22/19 Range/Units 14:55 15:15 APTT 54.8 H (18.6-31.3) SEC POC Glucose 96 (60-110) mg/dL Ward Results Last 24 Hours: Microbiology 02/20/19 00:15 Aerobic Blood Culture - Preliminary Blood - Venous NO GROWTH AFTER 3 DAYS Anaerobic Blood Culture - Preliminary NO GROWTH AFTER 3 DAYS 02/20/19 00:30 Aerobic Blood Culture - Final Blood - Venous - Lab Draw Staph Hominis Ss Hominis Anaerobic Blood Culture - Final Med Orders - Current: Current Medications Atropine Sulfate (Atropine 1% Ophth Soln) 0 ml SL Q2H PRN PRN Reason: secretions Lorazepam (Ativan) 1 mg IVPUSH Q4H PRN PRN Reason: agitation,seizure Morphine Sulfate (Morphine) 2 mg IVPUSH Q1H PRN PRN Reason: Agitation/pain Discontinued Medications Acetaminophen (Tylenol Extra Strength) 1,000 mg PO Q6HR PRN PRN Reason: Pain Last Admin: 02/20/19 16:43 Dose: 1,000 mg Albuterol/Ipratropium (Duoneb 3.0-0.5 Mg/3 Ml) 3 ml NEB ONETIME ONE Stop: 02/19/19 23:37 Last Admin: 02/20/19 00:05 Dose: 3 ml Amlodipine Besylate (Norvasc) 10 mg PO DAILY [facility] Last Admin: 02/22/19 12:50 Dose: Not Given Bisacodyl (Dulcolax) 10 mg RECTAL Q24H PRN PRN Reason: Constipation Budesonide (Pulmicort) 0.5 mg NEB BID PRN PRN Reason: Dyspnea Enoxaparin Sodium (Lovenox) 125 mg SUBCUT ONETIME ONE Stop: 02/20/19 02:03 Last Admin: 02/20/19 02:11 Dose: 125 mg Famotidine (Pepcid) 20 mg PO BEDTIME [facility] Last Admin: 02/21/19 21:42 Dose: 20 mg Heparin Sodium (Porcine) (Heparin Sodium) 5,000 units IVPUSH .BOLUS ONE Stop: 02/20/19 13:31 Last Admin: 02/20/19 14:04 Dose: 5,000 units Sodium Chloride (Normal Saline) 1,000 mls @ 999 mls/hr IV STAT ONE Stop: 02/20/19 00:36 Last Admin: 02/20/19 00:15 Dose: 999 mls/hr Ceftriaxone Sodium/Dextrose 1 (gm/ Premix) 50 mls @ 100 mls/hr IV ONETIME ONE Stop: 02/20/19 02:52 Last Admin: 02/20/19 03:19 Dose: 100 mls/hr Sodium Chloride (Normal Saline) 1,000 mls @ 125 mls/hr IV STAT [facility] Last Admin: 02/22/19 09:19 Dose: 125 mls/hr Heparin Sodium/Sodium Chloride (Heparin-1/2ns 25,000 Units/500) 25,000 unit in 500 mls @ 45.252 mls/hr IV TITRATE [facility]BARA; Protocol Last Titration: 02/22/19 08:17 Dose: 11 units/kg/hr, 27.654 mls/hr Levofloxacin/Dextrose 750 mg/ (Premix) 150 mls @ 100 mls/hr IV Q24H [facility] Last Admin: 02/20/19 18:21 Dose: Not Given Piperacillin Sod/Tazobactam (Sod 4.5 gm/ Sodium Chloride) 100 mls @ 100 mls/hr IV Q6H [facility] Last Admin: 02/20/19 14:16 Dose: 100 mls/hr Piperacillin Sod/Tazobactam (Sod 4.5 gm/ Sodium Chloride) 100 mls @ 100 mls/hr IV Q6H [facility] Last Admin: 02/22/19 08:11 Dose: 100 mls/hr Levofloxacin/Dextrose 750 mg/ (Premix) 150 mls @ 100 mls/hr IV Q24H [facility] Last Admin: 02/22/19 16:55 Dose: Not Given Vancomycin HCl 2 gm/ Sodium (Chloride) 500 mls @ 333.333 mls/hr IV ONETIME ONE Stop: 02/20/19 21:29 Last Admin: 02/20/19 21:31 Dose: 333.333 mls/hr Vancomycin HCl 1.5 gm/ Premix 300 mls @ 300 mls/hr IV Q12H [facility] Last Admin: 02/22/19 08:50 Dose: Not Given Potassium Chloride/Dextrose/Sod Cl (D5 1/2 Ns W/ 20 Meq/L Kcl) 1,000 mls @ 125 mls/hr IV ONETIME ONE Stop: 02/22/19 07:14 Last Admin: 02/21/19 23:39 Dose: 125 mls/hr Vancomycin HCl 1.75 gm/ Sodium (Chloride) 500 mls @ 333.333 mls/hr IV Q12H [facility] Last Admin: 02/22/19 09:27 Dose: 333.333 mls/hr Levetiracetam 1,000 mg/ Sodium (Chloride) 110 mls @ 440 mls/hr IV Q12HR@0000, 1200 [facility] Last Admin: 02/22/19 12:36 Dose: 440 mls/hr Potassium Chloride 20 meq/ (Premix) 50 mls @ 25 mls/hr IV ONETIME ONE Stop: 02/22/19 14:58 Last Admin: 02/22/19 13:15 Dose: 25 mls/hr Potassium Chloride/Sodium Chloride (Normal Saline With 20 Meq Kcl) 1,000 mls @ 125 mls/hr IV ASDIRECTED [facility] Last Admin: 02/22/19 13:11 Dose: 125 mls/hr Iopamidol (Isovue Multipack-370 (76%)) 100 ml IVPUSH ONETIME STA Stop: 02/20/19 01:46 Last Admin: 02/20/19 01:46 Dose: 100 ml Levalbuterol HCl (Xopenex) 1.25 mg INH Q8HR PRN PRN Reason: Dyspnea Levetiracetam (Keppra) 1,000 mg PO BID [facility] Last Admin: 02/22/19 11:57 Dose: Not Given Levothyroxine Sodium (Levothyroxine) 75 mcg PO DAILY [facility] Last Admin: 02/20/19 11:11 Dose: 75 mcg Levothyroxine Sodium (Levothyroxine) 150 mcg PO ASDIRECTED [facility] Last Admin: 02/21/19 10:08 Dose: 150 mcg Levothyroxine Sodium (Levothyroxine) 75 mcg PO ASDIRECTED [facility] Lorazepam (Ativan) 0.5 mg PO Q8H PRN PRN Reason: Anxiety Magnesium Hydroxide (Milk Of Magnesia) 30 ml PO DAILY PRN PRN Reason: Constipation Methylprednisolone Sodium Succinate (Solu-Medrol) 125 mg IVPUSH ONETIME ONE Stop: 02/19/19 23:37 Last Admin: 02/20/19 00:25 Dose: 125 mg Morphine Sulfate (Morphine) 2 mg IVPUSH Q4H PRN PRN Reason: Agitation Omeprazole (Omeprazole) 20 mg PO ACBREAKFAST [facility] Last Admin: 02/22/19 12:49 Dose: Not Given Ondansetron HCl (Zofran Odt) 4 mg PO Q6HR PRN PRN Reason: Nausea Oxycodone HCl (Oxycodone) 5 mg PO Q4H PRN PRN Reason: Pain Calcium Carbonate/Vitamin D3 [Calcium Carb 500 Mg] 1,000 1 each PO Q6HR PRN PRN Reason: Heartburn Melatonin [Melatonin (] 6 Mg) 1 each PO BEDTIME PRN PRN Reason: Insomnia Vancomycin HCl (Pharmacy To Dose - Vancomycin) 1 dose .XX ASDIRECTED [facility] - Exam General: Lethargic Lungs: Decreased Breath Sounds, Other (periods of apnea between breaths) Cardiovascular: Regular Rate, Regular Rhythm Neurological: Other (unresponsive.) - Problem List & Annotations (1) Palliative care status SNOMED Code(s): 999822086 Code(s): Z51.5 - ENCOUNTER FOR PALLIATIVE CARE Status: Acute Current Visit: Yes (2) Acute respiratory distress SNOMED Code(s): 705262843 Code(s): R06.03 - ACUTE RESPIRATORY DISTRESS Status: Resolved Priority: High Current Visit: Yes (3) Pulmonary emboli SNOMED Code(s): 23736654 Code(s): I26.99 - OTHER PULMONARY EMBOLISM WITHOUT ACUTE COR PULMONALE Status: Acute Priority: High Current Visit: Yes Qualifiers: Pulmonary embolism type: multiple subsegmental (without acute cor pulmonale) Qualified Code(s): I26.94 - Multiple subsegmental pulmonary emboli without acute cor pulmonale (4) Gram-negative bacterial infection SNOMED Code(s): 000190706 Code(s): A49.9 - BACTERIAL INFECTION, UNSPECIFIED Status: Acute Priority : High Current Visit: Yes (5) Hypoxia SNOMED Code(s): 011994471 Code(s): R09.02 - HYPOXEMIA Status: Chronic Priority: High Current Visit: Yes Annotation/Comment:: Worsening (6) Glioblastoma SNOMED Code(s): 97336176370712, 17533443, 29922406244877 Code(s): C71.9 - MALIGNANT NEOPLASM OF BRAIN, UNSPECIFIED Status: Acute Current Visit: No (7) History of craniotomy SNOMED Code(s): 552729310, 217181006 Code(s): Z98.890 - OTHER SPECIFIED POSTPROCEDURAL STATES Status: Chronic Priority: Medium Current Visit: No (8) Poor short-term memory SNOMED Code(s): 518727402 Code(s): R41.3 - OTHER AMNESIA Status: Chronic Priority: High Current Visit: Yes (9) Oxygen dependent SNOMED Code(s): 387515262046 Code(s): Z99.81 - DEPENDENCE ON SUPPLEMENTAL OXYGEN Status: Acute Priority: High Current Visit: Yes - Problem List Review Problem List Initiated/Reviewed/Updated: Yes - My Orders Last 24 Hours: My Active Orders 02/22/19 21:00 Vital Signs [RC] Q12HR 02/23/19 08:22 [employer] Discontinue [Cardiac Monitoring Discontinue] [RC] Click to Edit 02/23/19 08:23 Atropine 1% [Atropine 1% Ophth Soln] See Dose Instructions SL Q2H PRN LORazepam [Ativan] 1 mg IVPUSH Q4H PRN 02/23/19 08:24 Morphine 2 mg IVPUSH Q1H PRN Comfort Measures [OM.PC] Routine - Plan Plan:: This 48 year old female admitted initially with moderate to severe pulmonary emboli and acute respiratory distress, now found to have expansion of cerebral edema and possible hemorrhagic stroke 1. Expansion of cerebral edema and possible hemorrhagic stroke, Continue Palliative care. Yesterday started to exhibit signs of CVA. Head CT obtained which revealed acute intracranial hemorrhage with associated vasogenic edema centered about the right cerebral peduncle and basal ganglia with a midline shift [id number] of 15 mm. Prognosis was discussed with family and decision was made to transition to Palliative care. Code status changed to DNR/comfort measures. Ilene has remained unresponsive through the night. very little if any response with hand squeezing. Continue Morphine PRN as well as Ativan.
[2019-02-23 09:50] VITALS: BP 141/91; PULSE 108
[2019-02-23] MEDS: Morphine 10 MG/ML Syringe IVPUSH PRN ×2 (12:23→13:17)
[2019-02-23] MEDS ORDERED: LORazepam 2 MG/ML SDV IVPUSH ONE (13:18)
[2019-02-23] MEDS ORDERED: Morphine 10 MG/ML Syringe IVPUSH PRN (13:18)
[2019-02-23] MEDS: Atropine 1% Ophth Soln 5 ML BOTTLE SL PRN ×2 (13:24→15:35)
[2019-02-23] MEDS ORDERED: HYDROmorphone 1 MG/ML Syringe IVPUSH PRN (14:51)
[2019-02-23] MEDS ORDERED: Dexamethasone 10 MG/ML SDV IVPUSH ONE (14:52)
--- NOTE | 2019-02-23 15:27 | PCM.SN ---
- Free Text/Narrative Note: Approximately 1305 family came to nurses station stating Ilene was vomiting and struggling. Nursing staff into room with suction equipment. Patient noted to be posturing and grunting, gasping and apnea spells still noted. She was given 2 mg Ativan IV along with Morphine 5 mg IV as well. patient settled and cleaned up. Discussed further care with family, acknowledging we will need to add more medications scheduled to help with cerebral edema. They are ok with this and only want to provide comfort for Ilene now. Add Dexamethasone 10 mg IV now. Schedule Ativan 4 mg for seizure prophylaxis along with PRN dosing if breakthrough seizures. Morphine for air hunger kept. Will also add Dilaudid 1 mg every 1 hour for pain due to grunting and groaning. Nursing aware. Family educated and verbalized understanding of new medication orders. Dr Haskins notified of care and new orders at this time.
--- NOTE | 2019-02-23 16:23 | PCM.DCSUM1 ---
Discharge Summary - Hospital Course Brief History: This 48 year old female with pmh of malignant glioblastoma, receiving palliative chemotherapy presented to the ED from [facility] where they noted she was tachycardic, short of breath, and having fevers. She was brought to the ED and found to have elevated D Dimer and subsequently noted to have multiple bilateral pulmonary emboli. She was intubated and transfer to [facility] approximately 1 month ago for respiratory failure and treated for pneumonia, at that point family unable to care for her at home so she was admitted to [facility]. arrived. We spoke with him regarding condition. Ilene does intermittently have confusion and alertness if off and on. We did discuss code status at length with , Ilene being alert and oriented stated she wants to live, that is her goal. The is aware of poor prognosis but wants to follow her wishes at this time. - Discharge Data Discharge Date: 02/23/19 Discharge Disposition: 20 Preliminary Cause of *Q: Cardiac Arrest Condition: Stable - Referral to Home Health Primary Care Physician: Neptali Frias MD - Discharge Diagnosis/Problem(s) (1) Palliative care status SNOMED Code(s): 535697033 ICD Code: Z51.5 - ENCOUNTER FOR PALLIATIVE CARE Status: Acute Current Visit: Yes (2) Acute respiratory distress SNOMED Code(s): 849502984 ICD Code: R06.03 - ACUTE RESPIRATORY DISTRESS Status: Resolved Priority: High Current Visit: Yes (3) Pulmonary emboli SNOMED Code(s): 09951426 ICD Code: I26.99 - OTHER PULMONARY EMBOLISM WITHOUT ACUTE COR PULMONALE Status: Acute Priority: High Current Visit: Yes Qualifiers: Pulmonary embolism type: multiple subsegmental (without acute cor pulmonale) Qualified Code(s): I26.94 - Multiple subsegmental pulmonary emboli without acute cor pulmonale (4) Gram-negative bacterial infection SNOMED Code(s): 410628505 ICD Code: A49.9 - BACTERIAL INFECTION, UNSPECIFIED Status: Acute Priority : High Current Visit: Yes (5) Hypoxia SNOMED Code(s): 704219577 ICD Code: R09.02 - HYPOXEMIA Status: Chronic Priority: High Current Visit: Yes Problem Details: Worsening (6) Glioblastoma SNOMED Code(s): 09771486864692, 63434119, 46850688078907 ICD Code: C71.9 - MALIGNANT NEOPLASM OF BRAIN, UNSPECIFIED Status: Acute Current Visit: No (7) History of craniotomy SNOMED Code(s): 013532512, 792903102 ICD Code: Z98.890 - OTHER SPECIFIED POSTPROCEDURAL STATES Status: Chronic Priority: Medium Current Visit: No (8) Poor short-term memory SNOMED Code(s): 813078687 ICD Code: R41.3 - OTHER AMNESIA Status: Chronic Priority: High Current Visit: Yes (9) Oxygen dependent SNOMED Code(s): 206727203551 ICD Code: Z99.81 - DEPENDENCE ON SUPPLEMENTAL OXYGEN Status: Acute Priority: High Current Visit: Yes - Discharge Plan Home Medications: Home Meds Levothyroxine 150 mcg PO ACBREAKFAST 11/09/13 [History] amLODIPine [Norvasc] 10 mg PO DAILY 11/09/13 [History] Omeprazole Magnesium [Prilosec Otc] 20 mg PO DAILY 02/14/16 [History] LORazepam 0.5 mg PO Q8H PRN 12/18/18 [History] oxyCODONE 5 mg PO Q4H PRN 12/18/18 [History] Acetaminophen [Tylenol Extra Strength] 1,000 mg PO Q6HR PRN 02/20/19 [History] Bisacodyl [Dulcolax] 10 mg RECTAL Q24H PRN 02/20/19 [History] Budesonide [Pulmicort] 0.5 mg IH BID PRN 02/20/19 [History] Calcium Carbonate/Vitamin D3 [Calcium Carb 500 MG] 1,000 mg PO Q6HR PRN [History] Levalbuterol HCl [Xopenex] 1.25 mg INH Q8HR PRN 02/20/19 [History] Levothyroxine 75 mcg PO DAILY 02/20/19 [History] Magnesium Hydroxide [Milk of Magnesia] 30 ml PO DAILY PRN 02/20/19 [History] Ondansetron [Zofran ODT] 4 mg PO Q6HR PRN 02/20/19 [History] Ranitidine [Zantac] 150 mg PO BEDTIME 02/20/19 [History] levETIRAcetam [Keppra] 1,000 mg PO BID 02/20/19 [History] Melatonin 6 mg PO BEDTIME PRN 02/21/19 [History] Referrals: Neptali Frias MD [Primary Care Provider] - - Discharge Summary/Plan Comment DC Time >30 min.: No Discharge Summary/Plan Comment: Cause of : Glioblastoma with Hemorrhagic stroke Secondary diagnoses: Palliative care Pulmonary emboli Health care associated pneumonia Bacteremia 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 She was noted to have elevated D Dimer and CT angio obtained which revealed moderate to severe subsegmental PE. She was treated with Lovenox in the ED, then transitioned to Heparin gtt. She was started on antibiotics due to possible HCAP and then noted to have positive blood cultures, Vancomycin was added. On Saturday she was noted to suddenly have significant alteration of her mental status, she only responded to deep pain stimulation. She was also noted to have flaccid paralysis of her left side both arm and leg along with left-sided facial droop. Family was called and head CT obtained, this revealed acute intracranial hemorrhage with associated vasogenic edema centered about the right cerebral peduncle and basal ganglia with a midline shift [id number] of 15 mm. Family was counseled on results and ultimately she was placed on palliative care. This morning, she was noted to be more uncomfortable and pain medications increased. Around 1300 she suffered a seizure with emesis. She was treated with Ativan, Dexamethasone add as well as Dilaudid for pain. Family counseled on the need for continuing sedating medications to limit seizures, they were very understanding and continued to want comfort measures for Ilene. Family noted patient no longer breathing. Patient noted to have you spontaneously respiratory effort and no cardiac function noted, no pulse or heart tones auscultated. Time of 1613, family at bedside and notified. Pastoral care and nursing at bedside. Dr Haskins notified of . - Patient Data Vitals - Most Recent: Last Vital Signs Temp 98.4 F 02/23/19 08:00 Pulse 108 H 02/23/19 08:00 Resp 22 H 02/23/19 08:00 BP 141/91 H 02/23/19 08:00 Pulse Ox 93 L 02/23/19 08:00 Weight - Most Recent: 125.7 kg I&O - Last 24 hours: Intake & Output 02/23/19 02/23/19 02/23/19 06:59 14:59 22:59 Intake Total 0 Output Total 3600 Balance -3600 [place] Results - Last 24 hrs: Microbiology 02/20/19 00:15 Aerobic Blood Culture - Preliminary Blood - Venous NO GROWTH AFTER 3 DAYS Anaerobic Blood Culture - Preliminary NO GROWTH AFTER 3 DAYS Med Orders - Current: Current Medications Atropine Sulfate (Atropine 1% Ophth Soln) 0 ml SL Q2H PRN PRN Reason: secretions Last Admin: 02/23/19 15:35 Dose: 1 ml Dexamethasone (Dexamethasone) 4 mg IVPUSH Q6H [facility] Hydromorphone HCl (Dilaudid) 1 mg IVPUSH Q1H PRN PRN Reason: pain/agitation Last Admin: 02/23/19 15:32 Dose: 1 mg Lorazepam (Ativan) 2 mg IVPUSH .ASNEEDED PRN PRN Reason: Seizures Lorazepam (Ativan) 2 mg IVPUSH Q4H [facility] Morphine Sulfate (Morphine) 5 mg IVPUSH Q30M PRN PRN Reason: Airhunger/SOB Last Admin: 02/23/19 14:08 Dose: 5 mg Discontinued Medications Acetaminophen (Tylenol Extra Strength) 1,000 mg PO Q6HR PRN PRN Reason: Pain Last Admin: 02/20/19 16:43 Dose: 1,000 mg Albuterol/Ipratropium (Duoneb 3.0-0.5 Mg/3 Ml) 3 ml NEB ONETIME ONE Stop: 02/19/19 23:37 Last Admin: 02/20/19 00:05 Dose: 3 ml Amlodipine Besylate (Norvasc) 10 mg PO DAILY [facility] Last Admin: 02/22/19 12:50 Dose: Not Given Bisacodyl (Dulcolax) 10 mg RECTAL Q24H PRN PRN Reason: Constipation Budesonide (Pulmicort) 0.5 mg NEB BID PRN PRN Reason: Dyspnea Dexamethasone (Dexamethasone) 10 mg IVPUSH ONETIME ONE Stop: 02/23/19 14:53 Last Admin: 02/23/19 15:11 Dose: 10 mg Enoxaparin Sodium (Lovenox) 125 mg SUBCUT ONETIME ONE Stop: 02/20/19 02:03 Last Admin: 02/20/19 02:11 Dose: 125 mg Famotidine (Pepcid) 20 mg PO BEDTIME [facility] Last Admin: 02/21/19 21:42 Dose: 20 mg Heparin Sodium (Porcine) (Heparin Sodium) 5,000 units IVPUSH .BOLUS ONE Stop: 02/20/19 13:31 Last Admin: 02/20/19 14:04 Dose: 5,000 units Sodium Chloride (Normal Saline) 1,000 mls @ 999 mls/hr IV STAT ONE Stop: 02/20/19 00:36 Last Admin: 02/20/19 00:15 Dose: 999 mls/hr Ceftriaxone Sodium/Dextrose 1 (gm/ Premix) 50 mls @ 100 mls/hr IV ONETIME ONE Stop: 02/20/19 02:52 Last Admin: 02/20/19 03:19 Dose: 100 mls/hr Sodium Chloride (Normal Saline) 1,000 mls @ 125 mls/hr IV STAT [facility] Last Admin: 02/22/19 09:19 Dose: 125 mls/hr Heparin Sodium/Sodium Chloride (Heparin-1/2ns 25,000 Units/500) 25,000 unit in 500 mls @ 45.252 mls/hr IV TITRATE [facility]; Protocol Last Titration: 02/22/19 08:17 Dose: 11 units/kg/hr, 27.654 mls/hr Levofloxacin/Dextrose 750 mg/ (Premix) 150 mls @ 100 mls/hr IV Q24H [facility] Last Admin: 02/20/19 18:21 Dose: Not Given Piperacillin Sod/Tazobactam (Sod 4.5 gm/ Sodium Chloride) 100 mls @ 100 mls/hr IV Q6H [facility] Last Admin: 02/20/19 14:16 Dose: 100 mls/hr Piperacillin Sod/Tazobactam (Sod 4.5 gm/ Sodium Chloride) 100 mls @ 100 mls/hr IV Q6H [facility] Last Admin: 02/22/19 08:11 Dose: 100 mls/hr Levofloxacin/Dextrose 750 mg/ (Premix) 150 mls @ 100 mls/hr IV Q24H [facility] Last Admin: 02/22/19 16:55 Dose: Not Given Vancomycin HCl 2 gm/ Sodium (Chloride) 500 mls @ 333.333 mls/hr IV ONETIME ONE Stop: 02/20/19 21:29 Last Admin: 02/20/19 21:31 Dose: 333.333 mls/hr Vancomycin HCl 1.5 gm/ Premix 300 mls @ 300 mls/hr IV Q12H [facility] Last Admin: 02/22/19 08:50 Dose: Not Given Potassium Chloride/Dextrose/Sod Cl (D5 1/2 Ns W/ 20 Meq/L Kcl) 1,000 mls @ 125 mls/hr IV ONETIME ONE Stop: 02/22/19 07:14 Last Admin: 02/21/19 23:39 Dose: 125 mls/hr Vancomycin HCl 1.75 gm/ Sodium (Chloride) 500 mls @ 333.333 mls/hr IV Q12H [facility] Last Admin: 02/22/19 09:27 Dose: 333.333 mls/hr Levetiracetam 1,000 mg/ Sodium (Chloride) 110 mls @ 440 mls/hr IV Q12HR@0000, 1200 [facility] Last Admin: 02/22/19 12:36 Dose: 440 mls/hr Potassium Chloride 20 meq/ (Premix) 50 mls @ 25 mls/hr IV ONETIME ONE Stop: 02/22/19 14:58 Last Admin: 02/22/19 13:15 Dose: 25 mls/hr Potassium Chloride/Sodium Chloride (Normal Saline With 20 Meq Kcl) 1,000 mls @ 125 mls/hr IV ASDIRECTED [facility] Last Admin: 02/22/19 13:11 Dose: 125 mls/hr Iopamidol (Isovue Multipack-370 (76%)) 100 ml IVPUSH ONETIME STA Stop: 02/20/19 01:46 Last Admin: 02/20/19 01:46 Dose: 100 ml Levalbuterol HCl (Xopenex) 1.25 mg INH Q8HR PRN PRN Reason: Dyspnea Levetiracetam (Keppra) 1,000 mg PO BID [facility] Last Admin: 02/22/19 11:57 Dose: Not Given Levothyroxine Sodium (Levothyroxine) 75 mcg PO DAILY [facility] Last Admin: 02/20/19 11:11 Dose: 75 mcg Levothyroxine Sodium (Levothyroxine) 150 mcg PO ASDIRECTED [facility] Last Admin: 02/21/19 10:08 Dose: 150 mcg Levothyroxine Sodium (Levothyroxine) 75 mcg PO ASDIRECTED [facility] Lorazepam (Ativan) 0.5 mg PO Q8H PRN PRN Reason: Anxiety Lorazepam (Ativan) 1 mg IVPUSH Q4H PRN PRN Reason: agitation,seizure Lorazepam (Ativan) 2 mg IVPUSH Q2H PRN PRN Reason: agitation,seizure Last Admin: 02/23/19 14:17 Dose: 2 mg Lorazepam (Ativan) 2 mg IVPUSH ONETIME ONE Stop: 02/23/19 13:19 Last Admin: 02/23/19 13:23 Dose: 2 mg Magnesium Hydroxide (Milk Of Magnesia) 30 ml PO DAILY PRN PRN Reason: Constipation Methylprednisolone Sodium Succinate (Solu-Medrol) 125 mg IVPUSH ONETIME ONE Stop: 02/19/19 23:37 Last Admin: 02/20/19 00:25 Dose: 125 mg Morphine Sulfate (Morphine) 2 mg IVPUSH Q4H PRN PRN Reason: Agitation Morphine Sulfate (Morphine) 2 mg IVPUSH Q1H PRN PRN Reason: Agitation/pain Last Admin: 02/23/19 10:29 Dose: 2 mg Morphine Sulfate (Morphine) 5 mg IVPUSH Q1H PRN PRN Reason: Agitation/pain Last Admin: 02/23/19 13:17 Dose: 5 mg Omeprazole (Omeprazole) 20 mg PO ACBREAKFAST [facility] Last Admin: 02/22/19 12:49 Dose: Not Given Ondansetron HCl (Zofran Odt) 4 mg PO Q6HR PRN PRN Reason: Nausea Oxycodone HCl (Oxycodone) 5 mg PO Q4H PRN PRN Reason: Pain Calcium Carbonate/Vitamin D3 [Calcium Carb 500 Mg] 1,000 1 each PO Q6HR PRN PRN Reason: Heartburn Melatonin [Melatonin (] 6 Mg) 1 each PO BEDTIME PRN PRN Reason: Insomnia Vancomycin HCl (Pharmacy To Dose - Vancomycin) 1 dose .XX ASDIRECTED [facility]
[2019-02-23] MEDS ORDERED: LORazepam 2 MG/ML SDV IVPUSH SCH (18:00)
[2019-02-23] MEDS ORDERED: Dexamethasone 10 MG/ML SDV IVPUSH SCH (21:00)
== END 2019-02-23 18:30 | disposition expired | DRG 175 ==
LOC: MW.ED 23:25 → MW.ICU 02-20 02:23 → MW.MS 02-20 18:15
PROVIDERS: ADMIT Internal Medicine; ATTEND Internal Medicine
DX: I26.94 Multiple subsegmental thrombotic pulmonary emboli without acute cor pulmonale (principal); J18.9 Pneumonia, unspecified organism; G93.6 Cerebral edema; C71.9 Malignant neoplasm of brain, unspecified; I62.9 Nontraumatic intracranial hemorrhage, unspecified; R78.81 Bacteremia; G81.94 Hemiplegia, unspecified affecting left nondominant side; G91.9 Hydrocephalus, unspecified; Z66 Do not resuscitate; Z51.5 Encounter for palliative care; I46.9 Cardiac arrest, cause unspecified; R29.703 NIHSS score 3; R06.03 Acute respiratory distress; R09.02 Hypoxemia; R41.3 Other amnesia; E78.5 Hyperlipidemia, unspecified; I10 Essential (primary) hypertension; K21.9 Gastro-esophageal reflux disease without esophagitis; E03.9 Hypothyroidism, unspecified; E66.9 Obesity, unspecified; R79.1 Abnormal coagulation profile; E78.00 Pure hypercholesterolemia, unspecified; G43.909 Migraine, unspecified, not intractable, without status migrainosus; R29.810 Facial weakness; Z91.048 Other nonmedicinal substance allergy status; Z99.81 Dependence on supplemental oxygen; Z79.899 Other long term (current) drug therapy; Z87.01 Personal history of pneumonia (recurrent); Z98.890 Other specified postprocedural states; Z92.21 Personal history of antineoplastic chemotherapy; Z90.89 Acquired absence of other organs; Z90.710 Acquired absence of both cervix and uterus; Z68.36 Body mass index [BMI] 36.0-36.9, adult
CPT/HCPCS: 36415; 70450; 70450-26; 71045; 71045-26; 71275; 71275-26; 80048; 80053; 80202; 81001; 82962; 83605; 83735; 83880; 85025; 85379; 85610; 85730; 87040; 87077; 87186; 93005; 96361; 96372; 96374; 99285-25; A9270-GY; J0696; J1100; J1170; J1644; J1650; J1953; J1956; J2060; J2270; J2543; J2930; J3370; J3480; J7030; J7040; J7620-GY; Q9967